=== PATIENT | male | born 1965 | race Caucasian/White ===

== ENCOUNTER → 2016-11-30 | Outpatient (CLI) | payer OTHER ==
--- NOTE | 2016-11-30 15:45 | XR ---
EXAMINATION TYPE: XR KUB DATE OF EXAM: 11/30/2016 COMPARISON: 04/11/2016 INDICATION: Renal calculus TECHNIQUE: Single view abdomen supine view FINDINGS: There is a normal bowel gas pattern. Colonic bowel gas is present. Single loop of small bowel is in t he left midabdomen. Psoas margins are normal. No organomegaly is present. There is a 0.5 cm calcification within the inferior pole right kidney. Couple smaller calcifications are closer to the renal pelvis. Appears stable from 04/11/2016 Fixation screws are within the L4-L5 and S1 pedicles. IMPRESSION: 1. Stable calcifications at the inferior pole right kidney. The largest measures 0.5 cm transverse di mension.
== END | disposition home or self-care (01) ==
LOC: RADXRMAIN 15:24
PROVIDERS: ATTEND Family Medicine
DX: N28.89 Other specified disorders of kidney and ureter (principal)
CPT/HCPCS: 74000

== ENCOUNTER 2019-05-16 08:32 | Emergency (ER) | payer BC, OTHER ==
[2019-05-16 08:38] VITALS: TEMP 98.2
[2019-05-16] MEDS ORDERED: SODIUM CHLORIDE 0.9% 1,000 ML IV STA ×2 (08:53)
[2019-05-16] MEDS ORDERED: KETOROLAC 30 MG/ML 1 ML VIAL IVP STA (08:53)
[2019-05-16] MEDS ORDERED: HYDROmorphone 1 MG/ML 1 ML SYRINGE IVP STA ×4 (08:53→13:35)
[2019-05-16] MEDS ORDERED: ONDANSETRON 4 MG/2 ML VIAL IVP STA (08:53)
--- NOTE | 2019-05-16 09:00 | ED ---
Abdominal Pain HPI - General Source: patient, RN notes reviewed, old records reviewed Mode of arrival: wheelchair Limitations: no limitations <Vicki Carrion - Last Filed: 05/17/19 06:33> <Pam Dugan - Last Filed: 05/17/19 22:22> - General Chief Complaint: Abdominal Pain Stated Complaint: Kidney stone Time Seen by Provider: 05/16/19 08:41 - History of Present Illness Initial Comments: Patient is a 53-year-old male, with history of kidney stones. He presents today complaints of worsening left lower quadrant pain. Patient reports he was seen at [facility] on May 14 for this similar pain. He reports that he had a 2 cm stone in his left ureter. Patient states that his urologist is Dr. Rabago. He does have an upcoming appointment on May 19. Patient states that he is taking [place] at home without any relief. Patient states that he did not have urinary tract infection that time. Patient reports no chest pain shortness breath. Patient has had his last dose of pain meds 4 hours ago. Patient reports that he's had no vomiting. He has had have ureter stents in the past to have kidney stones removed. (Vicki Carrion) - Related Data Home Medications Medication Instructions Recorded Confirmed Diazepam [Valium] 5 mg PO BID 04/13/16 04/18/16 Sulfamethoxazole/Trimethoprim 1 tab PO Q12H 04/13/16 04/18/16 [Bactrim DS 800-160 mg] oxyCODONE HCL [oxyCODONE HCL (IR)] 10 mg PO Q4-6H PRN 04/18/16 04/18/16 Previous Rx's Medication Instructions Recorded HYDROcodone/APAP 10-325MG [[place] 1 tab PO Q4H PRN #18 tab 05/16/19 10-325] Allergies Allergy/AdvReac Type Severity Reaction Status Date / Time adhesive tape Allergy Rash/Hives Verified 05/16/19 08:39 Review of Systems ROS Other: All systems not noted in ROS Statement are negative. <Vicki Carrion - Last Filed: 05/17/19 06:33> ROS Other: All systems not noted in ROS Statement are negative. <Pam Dugan - Last Filed: 05/17/19 22:22> ROS Statement: Those systems with pertinent positive or pertinent negative responses have been documented in the HPI. Past Medical History Past Medical History: Renal Disease Additional Past Medical History / Comment(s): kidney stones, herniated/slipped disk,SPONDYLOLISTHESIS, DDD, low back pain. started 04/12/16 on antibiotic for UTI-2 PILLS LEFT TO TAKE. History of Any Multi-Drug Resistant Organisms: None Reported Past Surgical History: No Surgical Hx Reported Additional Past Surgical History / Comment(s): cystoscopy R perc nephrostolithotomy. 04-18-16 LAMINECTOMY,DECOMPRESSION, FUSION Past Anesthesia/Blood Transfusion Reactions: No Reported Reaction Additional Past Anesthesia/Blood Transfusion Reaction / Comment(s): clausterphobia Past Psychological History: No Psychological Hx Reported Smoking Status: Current every day smoker - Past Family History Father Family Medical History: No Reported History Additional Family Medical History / Comment(s): Father is alive and healthy. Mother Family Medical History: No Reported History <Vicki Carrion - Last Filed: 05/17/19 06:33> General Exam Limitations: no limitations General appearance: alert, in no apparent distress Head exam: Present: atraumatic, normocephalic, normal inspection Eye exam: Present: normal appearance, PERRL, EOMI. Absent: scleral icterus, conjunctival injection, periorbital swelling ENT exam: Present: normal exam, mucous membranes moist Neck exam: Present: normal inspection. Absent: tenderness, meningismus, lymphadenopathy Respiratory exam: Present: normal lung sounds bilaterally. Absent: respiratory distress, wheezes, rales, rhonchi, stridor Cardiovascular Exam: Present: regular rate, normal rhythm, normal heart sounds. Absent: systolic murmur, diastolic murmur, rubs, gallop, clicks GI/Abdominal exam: Present: soft, tenderness (LLQ tenderness), normal bowel sounds. Absent: distended, guarding, rebound, rigid Extremities exam: Present: normal inspection, full ROM, normal capillary refill. Absent: tenderness, pedal edema, joint swelling, calf tenderness Back exam: Present: normal inspection, CVA tenderness (L) Neurological exam: Present: alert, oriented X3, CN II-XII intact Psychiatric exam: Present: normal affect, normal mood Skin exam: Present: warm, dry, intact, normal color. Absent: rash <Vicki Carrion - Last Filed: 05/17/19 06:33> - General Exam Comments Initial Comments: 53 year old male, no distress. (Vicki Carrion) Course Vital Signs 05/16/19 05/16/19 05/16/19 08:36 08:38 09:38 Temperature 98.2 F Pulse Rate 69 62 Respiratory 16 20 20 Rate Blood Pressure 139/89 125/81 O2 Sat by Pulse 100 100 Oximetry 05/16/19 05/16/19 05/16/19 10:38 11:00 12:00 Temperature Pulse Rate 64 63 63 Respiratory 20 20 20 Rate Blood Pressure 126/84 126/85 118/80 O2 Sat by Pulse 100 100 100 Oximetry 05/16/19 05/16/19 13:00 13:43 Temperature Pulse Rate 63 Respiratory 20 20 Rate Blood Pressure 120/82 O2 Sat by Pulse 100 Oximetry Medical Decision Making - Lab Data Result diagrams: 05/16/19 08:55 05/16/19 08:55 - Radiology Data Radiology results: report reviewed <Vicki Carrion - Last Filed: 05/17/19 06:33> - Lab Data Result diagrams: 05/16/19 08:55 05/16/19 08:55 <Pam Dugan - Last Filed: 05/17/19 22:22> - Medical Decision Making Patient's 53-year-old male presents emergency room safe left-sided abdominal pain and flank pain. Diagnosis of kidney stones 2 days ago. He's been taking [place] at home without relief. Patient is given IV fluids and 15. Patient's labs reviewed and was unremarkable. Urinalysis showed hematuria. Patient Can was reviewed from 2 days ago. There is no sign of obstructing stones that time. KUB showed retained renal stones. With persistent pain is discussed the next option of the repeat imaging. Repeat computed tomography scan computed tomography scan was ordered. There is evidence of a 2 cm ovoid stone in the left renal pelvis. Patient's case was discussed with Dr. Dugan. Discussed case with Dr. Rabago. Patient was given option to be admitted for IV pain management or to increase his oral pain meds at home and follow-up with Dr. Rabago on Saturday. Patient agrees to go home. Discussed strict return parameters. (Vicki Carrion) I was available for consultation in the emergency department. The history and physical exam were done by the midlevel provider. I was consulted for this patients care. I reviewed the case with the midlevel provider and based on their presentation of the patient, I agree with the assessment, medical decision making and plan of care as documented. I discussed the case with Dr. Duarte who stated that the patient should go home if pain is controlled and follow up in his office on Saturday. Call to make appointment. I discussed this with the patient who feels much improved with pain medication. He is agreeable to discharge. Return parameters discussed. Chart was dictated using [employer] dictation software. Attempts were made to correct any dictation errors however some typographical errors may persist. (Pam Dugan) - Lab Data Lab Results 05/16/19 05/16/19 05/16/19 Range/Units 08:55 08:55 08:55 WBC 7.9 (3.8-10.6) k/uL RBC 5.36 (4.30-5.90) m/uL Hgb 16.0 (13.0-17.5) gm/dL Hct 48.6 (39.0-53.0) % MCV 90.8 (80.0-100.0) fL MCH 29.9 (25.0-35.0) pg MCHC 33.0 (31.0-37.0) g/dL RDW 12.2 (11.5-15.5) % Plt Count 210 (150-450) k/uL Neutrophils % 73 % Lymphocytes % 17 % Monocytes % 6 % Eosinophils % 2 % Basophils % 1 % Neutrophils # 5.7 (1.3-7.7) k/uL Lymphocytes # 1.3 (1.0-4.8) k/uL Monocytes # 0.5 (0-1.0) k/uL Eosinophils # 0.2 (0-0.7) k/uL Basophils # 0.1 (0-0.2) k/uL PT 9.8 (9.0-12.0) sec INR 0.9 (<1.2) APTT 25.9 (22.0-30.0) sec Sodium 141 (137-145) mmol/L Potassium 4.3 (3.5-5.1) mmol/L Chloride 110 H (98-107) mmol/L Carbon Dioxide 22 (22-30) mmol/L Anion Gap 9 mmol/L BUN 14 (9-20) mg/dL Creatinine 0.95 (0.66-1.25) mg/dL Est GFR (CKD-EPI)AfAm >90 (>60 ml/min/1.73 sqM) Est GFR (CKD-EPI)NonAf >90 (>60 ml/min/1.73 sqM) Glucose 102 H (74-99) mg/dL Calcium 11.3 H (8.4-10.2) mg/dL Total Bilirubin 0.6 (0.2-1.3) mg/dL AST 24 (17-59) U/L ALT 18 (4-49) U/L Alkaline Phosphatase 103 (38-126) U/L Total Protein 7.6 (6.3-8.2) g/dL Albumin 4.6 (3.5-5.0) g/dL Amylase 71 (30-110) U/L Lipase 72 (23-300) U/L Urine Color Urine Appearance (Clear) Urine pH (5.0-8.0) Ur Specific [place] (1.001-1.035) Urine Protein (Negative) Urine Glucose (UA) (Negative) Urine Ketones (Negative) Urine Blood (Negative) Urine Nitrite (Negative) Urine Bilirubin (Negative) Urine Urobilinogen (<2.0) mg/dL Ur Leukocyte Esterase (Negative) Urine RBC (0-5) /hpf Urine WBC (0-5) /hpf Calcium Oxalate Crystal (None) /hpf Urine Bacteria (None) /hpf Urine Mucus (None) /hpf Urine Sperm (None) /hpf 05/16/19 Range/Units 09:45 WBC (3.8-10.6) k/uL RBC (4.30-5.90) m/uL Hgb (13.0-17.5) gm/dL Hct (39.0-53.0) % MCV (80.0-100.0) fL MCH (25.0-35.0) pg MCHC (31.0-37.0) g/dL RDW (11.5-15.5) % Plt Count (150-450) k/uL Neutrophils % % Lymphocytes % % Monocytes % % Eosinophils % % Basophils % % Neutrophils # (1.3-7.7) k/uL Lymphocytes # (1.0-4.8) k/uL Monocytes # (0-1.0) k/uL Eosinophils # (0-0.7) k/uL Basophils # (0-0.2) k/uL PT (9.0-12.0) sec INR (<1.2) APTT (22.0-30.0) sec Sodium (137-145) mmol/L Potassium (3.5-5.1) mmol/L Chloride (98-107) mmol/L Carbon Dioxide (22-30) mmol/L Anion Gap mmol/L BUN (9-20) mg/dL Creatinine (0.66-1.25) mg/dL Est GFR (CKD-EPI)AfAm (>60 ml/min/1.73 sqM) Est GFR (CKD-EPI)NonAf (>60 ml/min/1.73 sqM) Glucose (74-99) mg/dL Calcium (8.4-10.2) mg/dL Total Bilirubin (0.2-1.3) mg/dL AST (17-59) U/L ALT (4-49) U/L Alkaline Phosphatase (38-126) U/L Total Protein (6.3-8.2) g/dL Albumin (3.5-5.0) g/dL Amylase (30-110) U/L Lipase (23-300) U/L Urine Color Yellow Urine Appearance Clear (Clear) Urine pH 7.0 (5.0-8.0) Ur Specific [place] 1.013 (1.001-1.035) Urine Protein 1+ H (Negative) Urine Glucose (UA) Negative (Negative) Urine Ketones Negative (Negative) Urine Blood Small H (Negative) Urine Nitrite Negative (Negative) Urine Bilirubin Negative (Negative) Urine Urobilinogen <2.0 (<2.0) mg/dL Ur Leukocyte Esterase Small H (Negative) Urine RBC 67 H (0-5) /hpf Urine WBC 11 H (0-5) /hpf Calcium Oxalate Crystal Occasional H (None) /hpf Urine Bacteria Occasional H (None) /hpf Urine Mucus Rare H (None) /hpf Urine Sperm Occasional H (None) /hpf - Radiology Data 2 cm ovoid calculus the left UPJ with moderate obstructive uropathy. Prominent fat strain. Renal sinus crit are present small amount of urine extravasation. Additional bilateral nonobstructing renal colliculi larger on the right measuring up to 1.17 m. Left sided colonic diverticulosis without acute div erticulitis. (Vicki Carrion) Disposition Is patient prescribed a controlled substance at d/c from ED?: Yes When asked, does pt state using other controlled substances?: Yes If prescribed controlled substance>3 days was MAPS reviewed?: Prescribed <3 Days If opioid is for acute pain is fill amount 7 days or less?: Yes If Rx opioid, was Start Talking consent form obtained?: Yes Time of Disposition: 13:16 <Vicki Carrion - Last Filed: 05/17/19 06:33> <Pam Dugan - Last Filed: 05/17/19 22:22> Clinical Impression: Kidney stone on left side Disposition: HOME SELF-CARE Condition: Good Instructions (If sedation given, give patient instructions): Kidney Stones (ED) Additional Instructions: Patient advised to follow-up with Dr. Rabago on Saturday. Return to the emergency department if any alarming signs or symptoms occur. Prescriptions: HYDROcodone/APAP 10-325MG [[place] 10-325] 1 tab PO Q4H PRN #18 tab PRN Reason: Pain Referrals: Jorge Trejo III, MD [Primary Care Provider] - 1-2 days
[2019-05-16 09:12] LABS: Basophils # (A) 0.1 k/uL (0-0.2); Basophils % (A) 1 %; Eosinophils # (A) 0.2 k/uL (0-0.7); Eosinophils % (A) 2 %; HCT 48.6 % (39.0-53.0); Lymphocytes # (A) 1.3 k/uL (1.0-4.8); Lymphocytes % (A) 17 %; MCH 29.9 pg (25.0-35.0); MCV 90.8 fL (80.0-100.0); Mean Platelet Volume 8.9; Monocytes # (A) 0.5 k/uL (0-1.0); Monocytes % (A) 6 %; Neutrophils # (A) 5.7 k/uL (1.3-7.7); Neutrophils % (A) 73 %; Platelet Count 210 k/uL (150-450); RBC 5.36 m/uL (4.30-5.90); RDW 12.2 % (11.5-15.5); WBC 7.9 k/uL (3.8-10.6)
[2019-05-16 09:21] LABS: INR 0.9 (<1.2); Partial Thromboplastin Time 25.9 sec (22.0-30.0); Prothrombin Time 9.8 sec (9.0-12.0)
[2019-05-16 09:23] VITALS: RESP 20
[2019-05-16 09:36] LABS: ALT 18 U/L (4-49); AST 24 U/L (17-59); African American GFR (CKD) >90 (>60 ml/min/1.73 sqM); Albumin 4.6 g/dL (3.5-5.0); Alkaline Phosphatase 103 U/L (38-126); Amylase 71 U/L (30-110); Anion Gap 9 mmol/L; Blood Urea Nitrogen 14 mg/dL (9-20); Calcium 11.3 mg/dL (8.4-10.2); Carbon Dioxide 22 mmol/L (22-30); Chloride 110 mmol/L (98-107); Glucose 102 mg/dL (74-99); Non-African American GFR(CKD) >90 (>60 ml/min/1.73 sqM); Potassium 4.3 mmol/L (3.5-5.1); Sodium 141 mmol/L (137-145); Total Bilirubin 0.6 mg/dL (0.2-1.3); Total Protein 7.6 g/dL (6.3-8.2)
--- NOTE | 2019-05-16 09:46 | XR ---
EXAMINATION TYPE: XR KUB DATE OF EXAM: 05/16/2019 CLINICAL DATA: 53 year old male with abdominal pain, [facility] COMPARISON: 11/30/16 FINDINGS: Lung bases are clear. No evidence for free intraperitoneal air. No dilated small bowel or differential air-fluid levels. Scattered air and stool seen throughout the colon extending distally into the rectum. Bilateral renal calculi. 8mm and 6mm renal calculi right kidney. Larger 2.2 cm calculus left kidney. Prosthetic calcifications are demonstrated. L4-S1 posterior fusion hardware. Overall nonobstructive bowel gas pattern. Scattered mild to moderate stool. IMPRESSION: 1. No evidence of bowel obstruction or free intraperitoneal air. 2. Mild to moderate stool. 3. Bilateral renal calculi measuring up to 8 mm on the right and 2.2 cm on the left.
[2019-05-16] MEDS ORDERED: SODIUM CHLORIDE 0.9% 1,000 ML IV ONE (10:34)
[2019-05-16 11:18] VITALS: PULSE 63
[2019-05-16 11:45] LABS: Appearance,Urine Clear (Clear); Bacteria,Urine Occasional /hpf; Bilirubin,Urine Negative (Negative); Blood,Urine Small (Negative); Calcium Oxalate Crystals,Urine Occasional /hpf; Color,Urine Yellow; Glucose,Urine (UA) Negative (Negative); Ketones,Urine Negative (Negative); Leukocyte Esterase,Urine Small (Negative); Mucus,Urine Rare /hpf; Nitrite,Urine Negative (Negative); Protein,Urine 1+ (Negative); RBC,Urine 67 /hpf (0-5); Specific Gravity,Urine 1.013 (1.001-1.035); Sperm,Urine Occasional /hpf; Urobilinogen,Urine <2.0 mg/dL (<2.0); WBC,Urine 11 /hpf (0-5)
--- NOTE | 2019-05-16 12:23 | CT ---
EXAMINATION TYPE: CT abdomen pelvis wo con DATE OF EXAM: 05/16/2019 COMPARISON: 10/31/2014 HISTORY: 53-year-old male Lt flank pain CT DLP: 660.8 mGycm. Automated exposure control for dose reduction was used. TECHNIQUE: Contiguous axial scanning of the abdomen and pelvis without IV contrast. Coronal and sagit jory reconstructions performed. FINDINGS: Heart normal size without pericardial effusion. Strandy dependent atelectasis at the lung bases witho ut pleural effusion. Noncontrast appearance of the liver, gallbladder, adrenal glands, spleen, and pancreas show no gross abnormality Right-sided nephrolithiasis. Approximately 5 calculi are present, 3 largest at the lower pole measuri ng up to 1.1 cm. A couple punctate 1 to 2 mm calculi within the left kidney. There is moderate left-sided pelvocaliect asis secondary to a 2.0 cm ovoid calculus at the UVJ. Mild fat stranding in the renal sinus. No dilated small bowel, free fluid, or free air. No mesenteric or retroperitoneal lymphadenopathy. Normal appendix. Mild to moderate stool. Left-sided colonic diverticulosis, greatest in the sigmoid colon. Bladder urine distended. Prostate gland mildly enlarged at 4.5 cm wide with prostatic calcifications. No abnormal fluid collection in the pelvis or pelvic lymphadenopathy. Bones: Mild degenerative changes at the hips and left SI joint. Postsurgical changes of L4-S1 posteri or fusion. Grade 1 anterolisthesis of L5-S1. IMPRESSION: 1. A 2.0 cm ovoid calculus at the left UPJ with moderate obstructive uropathy. 2. Prominent fat stranding in the left renal sinus could represent small amount of urine extravasati on related to the obstruction. 3. 3. Additional bilateral nonobstructive renal calculi, larger on the right measuring up to 1.1 cm. 4. Left-sided colonic diverticulosis without acute diverticulitis.
[2019-05-16 13:36] VITALS: BP 120/82
== END 2019-05-16 13:49 | disposition home or self-care (01) ==
LOC: EC 08:32
DX: N20.0 Calculus of kidney (principal); F17.200 Nicotine dependence, unspecified, uncomplicated; Z98.890 Other specified postprocedural states; Z96.0 Presence of urogenital implants; Z79.899 Other long term (current) drug therapy; Z91.048 Other nonmedicinal substance allergy status; Z53.8 Procedure and treatment not carried out for other reasons
CPT/HCPCS: 99285; 96374; 96375 ×2; 96376 ×2; 96361 ×5; 36415; 80053; 82150; 83690; 85025; 85610; 85730; 81001; 87086; 74018; 74176; J2405; J1885; J1170

== ENCOUNTER → 2019-05-19 | Outpatient (CLI) | payer BC ==
[2019-05-19 13:27] LABS: Appearance,Urine Cloudy (Clear); Bilirubin,Urine Negative (Negative); Blood,Urine Large (Negative); Color,Urine Yellow; Glucose,Urine (UA) Negative (Negative); Ketones,Urine Negative (Negative); Leukocyte Esterase,Urine Moderate (Negative); Mucus,Urine Rare /hpf; Nitrite,Urine Negative (Negative); Protein,Urine 1+ (Negative); RBC,Urine >182 /hpf (0-5); Specific Gravity,Urine 1.022 (1.001-1.035); Squamous Epithelial Cell,Urine <1 /hpf (0-4); Urobilinogen,Urine <2.0 mg/dL (<2.0); WBC,Urine 29 /hpf (0-5)
[2019-05-19 13:39] LABS: Basophils % (A) 1 %; Eosinophils # (A) 0.2 k/uL (0-0.7); Eosinophils % (A) 2 %; HCT 46.8 % (39.0-53.0); HGB 15.5 gm/dL (13.0-17.5); Lymphocytes # (A) 1.4 k/uL (1.0-4.8); Lymphocytes % (A) 17 %; MCH 30.7 pg (25.0-35.0); Mean Platelet Volume 8.9; Monocytes # (A) 0.6 k/uL (0-1.0); Monocytes % (A) 7 %; Neutrophils # (A) 5.9 k/uL (1.3-7.7); Neutrophils % (A) 72 %; Platelet Count 195 k/uL (150-450); RBC 5.04 m/uL (4.30-5.90); RDW 12.3 % (11.5-15.5); WBC 8.2 k/uL (3.8-10.6)
[2019-05-19 13:42] LABS: African American GFR (CKD) >90 (>60 ml/min/1.73 sqM); Anion Gap 7 mmol/L; Blood Urea Nitrogen 22 mg/dL (9-20); Calcium 10.8 mg/dL (8.4-10.2); Carbon Dioxide 26 mmol/L (22-30); Chloride 107 mmol/L (98-107); Glucose 88 mg/dL (74-99); Non-African American GFR(CKD) 79 (>60 ml/min/1.73 sqM); Potassium 4.6 mmol/L (3.5-5.1); Sodium 140 mmol/L (137-145)
== END | disposition home or self-care (01) ==
LOC: LABPAT 12:27
PROVIDERS: ATTEND Urology
DX: Z01.818 Encounter for other preprocedural examination (principal); Z01.812 Encounter for preprocedural laboratory examination; N20.0 Calculus of kidney; R53.83 Other fatigue
CPT/HCPCS: 36415; 80048; 81001; 85025; 87086; 93005

== ENCOUNTER 2019-05-26 11:08 | Observation (INO) | payer BC ==
[2019-05-21 12:53] VITALS: BMI 27.1
--- NOTE | 2019-05-25 20:16 | P.GSHP ---
History of Present Illness H&P Date: 05/25/19 54 yo male with a 2 cm left renal pelvic stone with pain and obstruction who comes for a pcnl The risks complication and alternatives have been discussed - Constitutional Constitutional: Denies chills, Denies fever - EENT Eyes: denies blurred vision, denies pain Ears, nose, mouth and throat: Denies headache, Denies sore throat - Cardiovascular Cardiovascular: Denies chest pain, Denies shortness of breath - Respiratory Respiratory: Denies cough, Denies 7 - Gastrointestinal Gastrointestinal: Denies abdominal pain, Denies diarrhea, Denies nausea, Denies vomiting - Genitourinary (Female) Genitourinary: Denies dysuria, Denies hematuria - Genitourinary (Male) Genitourinary: Denies dysuria, Denies hematuria - Musculoskeletal Musculoskeletal: Denies myalgias - Integumentary Integumentary: Denies pruritus, Denies rash - Neurological Neurological: Denies numbness, Denies weakness - Psychiatric Psychiatric: Denies anxiety, Denies depression - Endocrine Endocrine: Denies fatigue, Denies weight change Past Medical History Past Medical History: Renal Disease Additional Past Medical History / Comment(s): kidney stones, herniated/slipped disk,SPONDYLOLISTHESIS, DDD, low back pain. History of Any Multi-Drug Resistant Organisms: None Reported Past Surgical History: Back Surgery Additional Past Surgical History / Comment(s): cystoscopy R perc nephrostolithotomy. 04-18-16 LAMINECTOMY,DECOMPRESSION, FUSION Past Anesthesia/Blood Transfusion Reactions: No Reported Reaction Additional Past Anesthesia/Blood Transfusion Reaction / Comment(s): claustrophobia Smoking Status: Current every day smoker - Past Family History Father Family Medical History: No Reported History Additional Family Medical History / Comment(s): Father is alive and healthy. Mother Family Medical History: No Reported History Medications and Allergies Home Medications Medication Instructions Recorded Confirmed Type HYDROcodone/APAP 10-325MG [[place] 1 tab PO Q4H PRN #18 tab 05/16/19 05/21/19 Rx 10-325] Allergies Allergy/AdvReac Type Severity Reaction Status Date / Time adhesive tape Allergy Rash/Hives Verified 05/21/19 12:40 Surgical - Exam - General well developed, well nourished, no distress - Eyes PERRL - ENT no hearing loss - Neck no masses, trachea midline - Respiratory normal expansion, normal respiratory effort - Cardiovascular Rhythm: regular - Abdomen Abdomen: soft, non tender - Integumentary no rash - Neurologic normal sensation - Musculoskeletal normal gait, normal posture - Psychiatric oriented to time, oriented to person, speech is normal, memory intact Results - Imaging CT scan - abdomen: report reviewed, image reviewed CT scan - pelvis: report reviewed, image reviewed Assessment and Plan Assessment: Impression: Left renal pelvic stone Plan: PCNL left
[~2019-05-26 11:08] MED LIST: DEXAMETHASONE SOD PHOSPHATE 10 MG/ML 1 ML VIAL IV ONE; LIDOCAINE 1% 20 ML VIAL (10MG/ML) FOR IV START INTRADERMA PRN; MIDAZOLAM 2 MG/2 ML VIAL IV PRN; ONDANSETRON 4 MG/2 ML VIAL IVP ONE; SCOPOLAMINE 1.5MG/72HR PATCH TRANSDERM ONE
--- NOTE | 2019-05-26 11:35 | XR ---
KUB HISTORY: Preop, nephrolithiasis Frontal KUB correlated to prior CT and plain film 05/16/2019 The calcifications seen overlying the left and right kidneys are again noted. Postop changes are note d to the lumbosacral spine. Calcifications are noted within the pelvis which are within the prostate. Bone mineralization is normal. IMPRESSION: Bilateral nephrolithiasis.
[2019-05-26] MEDS: LACTATED RINGERS 1,000 ML IV SCH (11:50)
[2019-05-26] MEDS ORDERED: fentaNYL (PF) 50 MCG/ML 2 ML AMP IVP ONE (12:08)
[2019-05-26] MEDS ORDERED: GLYCOPYRROLATE 0.2 MG/ML 2 ML VIAL ONE (12:38)
[2019-05-26] MEDS ORDERED: MIDAZOLAM 2 MG/2 ML VIAL ONE (12:38)
[2019-05-26] MEDS ORDERED: ROCURONIUM BROMIDE 10 MG/ML 10 ML VIAL IV ONE (12:38)
[2019-05-26] MEDS ORDERED: LIDOCAINE 1% INJ 10MG/ML (20 ML MDV) ONE (12:38)
[2019-05-26] MEDS ORDERED: NEOSTIGMINE 1 MG/ML 10 ML VIAL ONE (12:38)
[2019-05-26] MEDS ORDERED: KETOROLAC 30 MG/ML 1 ML VIAL ONE (12:38)
[2019-05-26] MEDS ORDERED: PROPOFOL 10 MG/ML 20 ML VIAL IV ONE (12:38)
[2019-05-26] MEDS ORDERED: fentaNYL (PF) 50 MCG/ML 2 ML AMP ONE (12:38)
[2019-05-26] MEDS ORDERED: ceFAZolin 1,000 MG VIAL IVPB ONE ×2 (12:44→12:57)
[2019-05-26] MEDS ORDERED: IOHEXOL 350 MG/ML (PER ML) 100ML BTL MISCELLANE ONE ×2 (12:59)
[2019-05-26] MEDS ORDERED: IOPAMIDOL-300 50ML BTL MISCELLANE ONE (12:59)
[2019-05-26] MEDS ORDERED: LACTATED RINGERS 1,000 ML IV ONE (13:53)
[2019-05-26] MEDS ORDERED: NALOXONE 0.4 MG/ML 1 ML VIAL IV PRN (14:28)
[2019-05-26] MEDS ORDERED: ACETAMINOPHEN TAB 325 MG TAB PO PRN (14:29)
[2019-05-26] MEDS ORDERED: ONDANSETRON 4 MG/2 ML VIAL IVP PRN (14:29)
[2019-05-26] MEDS ORDERED: MAG HYDROX/AL HYDROX/SIMETH 30 ML CUP PO PRN (14:29)
--- NOTE | 2019-05-26 14:36 | P.OP ---
Date of Procedure: 05/26/19 Preoperative Diagnosis: Left renal calculus large Postoperative Diagnosis: Same Procedure(s) Performed: Cystoscopy, placement of 5-[place] occluding balloon catheter left, percutaneous nephrostomy (Dr. Mcclure) percutaneous nephrostolithotomy with laser lithotripsy, placement of 10-[place] J nephrostomy Anesthesia: CHANO Surgeon: Henok Duarte Estimated Blood Loss (ml): 50 Pathology: other (Stone) Condition: stable Disposition: PACU Indications for Procedure: The patient is a 54-year-old gentleman with known history of kidney stones who has a 2 cm left renal pelvic stone with obstruction and pain whocomes for percutaneous nephrostolithotomy Description of Procedure: The patient is brought to the operating suite and on the transport gurney is given a successful general endotracheal anesthesia. He's placed in a frog position with a sterile prep and drape. Cystoscopy a Foroblique lens and 22- [place]i sheath identifies a normal urethra. The prostate is not obstructing. The left ureteral orifice is identified and a 5-[place]i occluding balloon meredith ters passed up into the UPJ. It is secured to a 16-[place]i Sampson. The patient is placed in a prone position with care to airways and extremities. He is prepped and draped sterilely. Dr. Mcclure of radiology enters the procedure. He performed percutaneous access to the left lower pole calyx. The stone which was impacted in the renal pelvis was floated into the dilated upper pole calyx. I then dilate the tract to 30-[place]i. Introduced the rigid scope into the collecting system and remove any clot. I cannot access the upper pole calyx with the rigid scope. I passed the flexible nephroscope up into the kidney upper pole calyx. The stone is seen. With a 375 laser probe and up to 10 W of energy the stone was broken into smaller pieces. With a 1.9-[place]i stone basket I basket the largest pieces. The smaller pieces flow back into the renal pelvis which are removed with the rigid scope and grasping forceps. At the end of the procedure I looked throughout the collecting system including the UPJ and see no remaining stone. A 10-[place] J nephrostomy tube was placed and coils in the renal pelvis. It is secured to the skin with 2-0 silk. The occluding balloon catheters deflated and removed. The patient is awakened and returned recovery room good condition. Blood loss is at most 50 mL. He'll be placed in the hospital postoperatively
--- NOTE | 2019-05-26 14:45 | FL ---
EXAMINATION TYPE: FL Perc Nephrostomy New Access DATE OF EXAM: 05/26/2019 COMPARISON: CT 05/16/2019 HISTORY: Left renal calculus. PROCEDURE: Maximal barrier technique was utilized. The skin overlying the left kidney was localized using fluor oscopy and the overlying skin prepped and draped. Skin tamra was made with a scalpel. Access was ga ined under fluoroscopy, following placement of a ureteral occlusion balloon by the referring clinicia n and instillation of air in the renal collecting system with a 21-gauge needle to the kidney. A alireza table posterior calyx was chosen. A 0.018 inch wire was advanced. The access site was dilated and the ureters selected using an angled Glidewire and angled 5 Persian catheter and subsequently a sheath was advanced into the renal pelvis following dilation with balloon along the tract. Second safety wi re was introduced prior to dilation. The patient underwent nephrolithotomy by the referring clinician . The patient remained in stable condition without complication. The patient was discharged to [facility]. IMPRESSION: 13 minutes 21 seconds fluoroscopy time supplied to the referring clinician, intraoperativ e image documents the procedure STATUS POST NEPHROSTOMY PLACEMENT FOR NEPHROLITHOTOMY WITH FLUOROSCOPIC GUIDANCE. THIS PROCEDURE PER FORMED BY THE UNDERSIGNED.
[2019-05-26] MEDS: HYDROmorphone 0.5 MG/0.5 ML SYRINGE IVP PRN ×2 (15:05→15:10)
[2019-05-26] MEDS: MIDAZOLAM 2 MG/2 ML VIAL IVP ONE ×3 (15:22→15:36)
[2019-05-26] MEDS ORDERED: MEPERIDINE 50 MG/ML SYRINGE IVP ONE (15:50)
[2019-05-26] MEDS: HYDROmorphone PCA 10 MG/50 ML BAG IV PRN (18:14)
[2019-05-26] MEDS: KETOROLAC 30 MG/ML 1 ML VIAL IVP SCH (20:19)
[2019-05-26] MEDS: DEXTROSE 5%-0.45% NACL 1,000 ML IV SCH (20:19)
[2019-05-27] MEDS: KETOROLAC 30 MG/ML 1 ML VIAL IVP SCH ×3 (01:16→11:47)
[2019-05-27 01:45] VITALS: RESP 17
[2019-05-27] MEDS: DEXTROSE 5%-0.45% NACL 1,000 ML IV SCH (01:55)
[2019-05-27] MEDS: LACTATED RINGERS 1,000 ML IV SCH (06:01)
[2019-05-27] MEDS: HYDROmorphone PCA 10 MG/50 ML BAG IV PRN (06:37)
[2019-05-27 08:04] VITALS: BP 128/93; PULSE 68; TEMP 97.9
--- NOTE | 2019-05-27 11:01 | P.DS ---
Providers Date of admission: 05/26/19 23:35 Attending physician: Henok Duarte Primary care physician: Jorge [facility] Course: The patient with a history of kidney stones was admitted yesterday 05/25/2019 for a left percutaneous nephrostolithotomy. He underwent this without difficulty. Postoperatively he did well. His vital signs are stable. The catheters been removed and he is voiding without problems. The urine in the nephrostomy tube is clearing. His abdomen is soft. A be discharged home today. He will follow- up in the office Saturday for nephrostomy tube removal. His serum calcium and PTH will be obtained as apparently he is going to see a surgeon for parathyroid disease but has not had any of these bloods drawn. His condition is good. His activities Limited. The patient understands these instructions. He'll follow- up in the office on Saturday. Patient Condition at Discharge: Good Plan - Discharge Summary Discharge Rx Participant: Yes New Discharge Prescriptions: No Action HYDROcodone/APAP 10-325MG [[place] 10-325] 1 tab PO Q4H PRN #18 tab PRN Reason: Pain Discharge Medication List HYDROcodone/APAP 10-325MG [[place] 10-325] 1 tab PO Q4H PRN #18 tab 05/16/19 [Rx] Follow up Appointment(s)/Referral(s): Henok Duarte MD [STAFF PHYSICIAN] - 05/29/19 Activity/Diet/Wound Care/Special Instructions: home with nephrostomy tube Discharge Disposition: HOME SELF-CARE
== END 2019-05-27 12:41 | disposition home or self-care (01) ==
LOC: OR 11:08 → 4SSUR 15:01 → OR 23:39
PROVIDERS: ADMIT Urology; ATTEND Urology
DX: N20.0 Calculus of kidney (principal); E21.3 Hyperparathyroidism, unspecified; F40.240 Claustrophobia; F17.210 Nicotine dependence, cigarettes, uncomplicated; Z87.448 Personal history of other diseases of urinary system; Z87.39 Personal history of other diseases of the musculoskeletal system and connective tissue; Z98.1 Arthrodesis status; Z98.890 Other specified postprocedural states; Z91.09 Other allergy status, other than to drugs and biological substances; Z88.8 Allergy status to other drugs, medicaments and biological substances; Z97.2 Presence of dental prosthetic device (complete) (partial)
CPT/HCPCS: 94760; 94762; 86900; 86901; 82310; 86850; 83970; 82365; 50432; 74018; 50080; G0378 ×2; C1769 ×5; C2628; C1894; J2250; J1100; J2710; J2175; J2405; J0690; J2001; J3010; J1885 ×2; J2704; J1170 ×3; Q9967

== ENCOUNTER → 2019-07-03 | Outpatient (CLI) | payer BC | END | disposition home or self-care (01) | LOC: LABWHC1 09:18 | PROVIDERS: ATTEND Urology | DX: N20.0 Calculus of kidney (principal) | CPT/HCPCS: 36415; 82310; 83970 ==

== ENCOUNTER → 2019-07-08 | Outpatient (CLI) | payer BC ==
[2019-07-08 09:06] LABS: Basophils # (A) 0.1 k/uL (0-0.2); Basophils % (A) 1 %; Eosinophils # (A) 0.2 k/uL (0-0.7); Eosinophils % (A) 2 %; HCT 46.7 % (39.0-53.0); HGB 14.7 gm/dL (13.0-17.5); Lymphocytes % (A) 12 %; MCH 29.5 pg (25.0-35.0); MCHC 31.5 g/dL (31.0-37.0); MCV 93.4 fL (80.0-100.0); Mean Platelet Volume 8.9; Monocytes # (A) 0.5 k/uL (0-1.0); Monocytes % (A) 5 %; Neutrophils # (A) 6.4 k/uL (1.3-7.7); Neutrophils % (A) 78 %; Platelet Count 151 k/uL (150-450); RDW 12.7 % (11.5-15.5); WBC 8.3 k/uL (3.8-10.6)
[2019-07-08 10:17] LABS: Appearance,Urine Clear (Clear); Bacteria,Urine Rare /hpf; Bilirubin,Urine Negative (Negative); Blood,Urine Negative (Negative); Color,Urine Yellow; Glucose,Urine (UA) Negative (Negative); Hyaline Casts,Urine 1 /lpf (0-2); Ketones,Urine Negative (Negative); Leukocyte Esterase,Urine Moderate (Negative); Mucus,Urine Rare /hpf; Nitrite,Urine Negative (Negative); PH, Urine 6.5 (5.0-8.0); Protein,Urine Trace (Negative); RBC,Urine 3 /hpf (0-5); Specific Gravity,Urine 1.019 (1.001-1.035); Squamous Epithelial Cell,Urine <1 /hpf (0-4); Urobilinogen,Urine <2.0 mg/dL (<2.0); WBC,Urine 9 /hpf (0-5)
[2019-07-08 16:40] LABS: African American GFR (CKD) 97.8 (60.0-200.0); Anion Gap 4.7 mmol/L (4.00-12.00); Calcium 10.1 mg/dL (8.7-10.3); Carbon Dioxide 28.3 mmol/L (21.6-31.8); Non-African American GFR(CKD) 84.4 (60.0-200.0); Potassium 4.6 mmol/L (3.5-5.5)
== END | disposition home or self-care (01) ==
LOC: LABWHC1 08:38
PROVIDERS: ATTEND Urology
DX: N20.0 Calculus of kidney (principal)
CPT/HCPCS: 36415; 80048; 81001; 85025

== ENCOUNTER → 2019-07-17 | Outpatient (CLI) | payer BC ==
--- NOTE | 2019-07-17 08:54 | XR ---
EXAMINATION TYPE: XR abdomen 1V DATE OF EXAM: 07/17/2019 8:48 AM CLINICAL HISTORY: Status post lithotripsy TECHNIQUE: Single supine KUB image of the abdomen is obtained. COMPARISON: 05/26/2019. FINDINGS: The 2.1 cm left-sided calculus is no longer visualized status post lithotripsy. Dystrophic calcificat ions near the pubic symphysis may be within the prostate gland or urinary bladder. Multiple right-nelli ed renal calculi are similar in size, 3 in number measuring up to 7 mm. Punctate density also overlie s the superior pole of the left kidney. Postsurgical change of L4-S1. No dilated bowel. Osseous struc tures appear intact. IMPRESSION: Resolution of the 2.1 cm left-sided renal calculus status post lithotripsy. Bilateral sera al calculi remain as well as dystrophic calcifications in the low pelvis that may be within the urina ry bladder or prostate gland is stable from the prior of 05/26/2019.
== END | disposition home or self-care (01) ==
LOC: RADXRMAIN 08:34
PROVIDERS: ATTEND Urology
DX: N20.0 Calculus of kidney (principal); M61.48 Other calcification of muscle, other site
CPT/HCPCS: 74018

== ENCOUNTER → 2020-01-05 | Outpatient (CLI) | payer BC ==
[2020-01-05 19:04] LABS: African American GFR (CKD) 65.1 (60.0-200.0); Calcium 9.7 mg/dL (8.7-10.3); Carbon Dioxide 22.7 mmol/L (21.6-31.8); Magnesium 1.8 mg/dL (1.5-2.4); Non-African American GFR(CKD) 56.2 (60.0-200.0); Phosphorus 3.3 mg/dL (2.4-5.1); Potassium 3.9 mmol/L (3.5-5.5); Uric Acid 6.1 mg/dL (3.7-8.7)
== END | disposition home or self-care (01) ==
LOC: LABWHC1 10:44
PROVIDERS: ATTEND Urology
DX: N20.0 Calculus of kidney (principal)
CPT/HCPCS: 36415; 82310; 82374; 82435; 82565; 83735; 84100; 84132; 84295; 84550

== ENCOUNTER → 2020-01-13 | Outpatient (CLI) | payer BC | END | disposition home or self-care (01) | LOC: LABWHC1 10:49 | PROVIDERS: ATTEND Family Medicine | DX: E83.52 Hypercalcemia (principal) | CPT/HCPCS: 36415; 83970 ==

== ENCOUNTER 2020-02-22 11:52 | Observation (INO) | payer BC ==
[2020-02-22] MEDS ORDERED: KETOROLAC 15 MG/ML 1 ML VIAL IVP STA (12:40)
[2020-02-22] MEDS ORDERED: SODIUM CHLORIDE 0.9% 1,000 ML IV STA (12:40)
[2020-02-22 13:32] LABS: Basophils % (A) 0 %; Eosinophils # (A) 0.1 k/uL (0-0.7); Eosinophils % (A) 1 %; HGB 13.2 gm/dL (13.0-17.5); Lymphocytes # (A) 0.8 k/uL (1.0-4.8); Lymphocytes % (A) 6 %; MCH 28.9 pg (25.0-35.0); MCHC 32.2 g/dL (31.0-37.0); Mean Platelet Volume 8.5; Monocytes # (A) 0.9 k/uL (0-1.0); Monocytes % (A) 7 %; Neutrophils # (A) 11.2 k/uL (1.3-7.7); Neutrophils % (A) 85 %; Platelet Count 188 k/uL (150-450); RBC 4.56 m/uL (4.30-5.90); RDW 13.5 % (11.5-15.5); WBC 13.1 k/uL (3.8-10.6)
--- NOTE | 2020-02-22 13:33 | XR ---
EXAMINATION TYPE: XR elbow complete RT DATE OF EXAM: 02/22/2020 COMPARISON: None HISTORY: 54-year-old male with pain TECHNIQUE: 3 views FINDINGS: There seems to be some mild generalized soft tissue swelling with reticulation within the subcutaneou s fat. No elbow joint effusion. No acute fracture, subluxation, or effusion. IMPRESSION: Some generalized soft tissue swelling. No acute osseous abnormality seen.
--- NOTE | 2020-02-22 13:40 | ED ---
General Adult HPI - General Chief complaint: Extremity Injury, Upper Stated complaint: R Arm Pain Time Seen by Provider: 02/22/20 12:23 Source: patient, RN notes reviewed Mode of arrival: ambulatory - History of Present Illness Initial comments: 54-year-old male presents to the emergency room for a chief complaint of right arm pain. Patient reports it has been ongoing for about a week. Patient states it is red and swollen. He denies fevers or chills. He states he cannot extend his elbow all the way. States it hurts to flex his elbow past 90. Patient denies any history of IV drug abuse.Patient has no other complaints at this time including shortness of breath, chest pain, abdominal pain, nausea or vomiting, headache, or visual changes. - Related Data Previous Rx's Medication Instructions Recorded HYDROcodone/APAP 10-325MG [[place] 1 tab PO Q4H PRN #18 tab 05/16/19 10-325] Allergies Allergy/AdvReac Type Severity Reaction Status Date / Time No Known Allergies Allergy Verified 02/22/20 12:15 Review of Systems ROS Statement: Those systems with pertinent positive or pertinent negative responses have been documented in the HPI. ROS Other: All systems not noted in ROS Statement are negative. Past Medical History Past Medical History: Renal Disease Additional Past Medical History / Comment(s): kidney stones, herniated/slipped disk,SPONDYLOLISTHESIS, DDD, low back pain. started 04/12/16 on antibiotic for UTI-2 PILLS LEFT TO TAKE. History of Any Multi-Drug Resistant Organisms: None Reported Past Surgical History: No Surgical Hx Reported Additional Past Surgical History / Comment(s): Litotripsy, Kidney stone removal. Past Anesthesia/Blood Transfusion Reactions: No Reported Reaction Additional Past Anesthesia/Blood Transfusion Reaction / Comment(s): clausterphobia Past Psychological History: No Psychological Hx Reported Smoking Status: Current every day smoker Past Alcohol Use History: None Reported Past Drug Use History: Marijuana - Past Family History Mother Family Medical History: Cancer Additional Family Medical History / Comment(s): LUNG CANCER- SMOKER General Exam General appearance: alert, in no apparent distress Head exam: Present: atraumatic, normocephalic, normal inspection Eye exam: Present: normal appearance, PERRL, EOMI. Absent: scleral icterus, conjunctival injection, periorbital swelling ENT exam: Present: normal exam, mucous membranes moist Neck exam: Present: normal inspection, full ROM. Absent: tenderness, meningismus, lymphadenopathy Respiratory exam: Present: normal lung sounds bilaterally. Absent: respiratory distress, wheezes, rales, rhonchi, stridor Cardiovascular Exam: Present: regular rate, normal rhythm, normal heart sounds. Absent: systolic murmur, diastolic murmur, rubs, gallop, clicks GI/Abdominal exam: Present: soft, normal bowel sounds. Absent: distended, ten derness, guarding, rebound, rigid Extremities exam: Present: tenderness (Tenderness of the generalized right elbow.), normal capillary refill (Capillary refill less than 2 seconds, radial pulse 2+ in the right upper extremity.), joint swelling (Patient has edema and erythema extend from the elbow up to the distal forearm.), other (Sensation intact right upper extremity.). Absent: full ROM (Patient has near complete extension however is unable to fully extend arm. Able to flex elbow to 90.), pedal edema, calf tenderness Course Vital Signs 02/22/20 12:12 Temperature 98.4 F Pulse Rate 93 Respiratory 18 Rate Blood Pressure 100/63 O2 Sat by Pulse 100 Oximetry Medical Decision Making - Medical Decision Making Patient has erythema from the elbow to the wrist. White count of 13.1 with a left shift. CMP is unremarkable. CRP is 193. X-ray of the elbow shows some generalized soft tissue swelling without acute fracture or dislocation. Patient will be admitted for cellulitis and IV antibiotics. - Lab Data Result diagrams: 02/22/20 12:40 02/22/20 12:40 Lab Results 02/22/20 02/22/20 02/22/20 Range/Units 12:40 12:40 12:40 WBC 13.1 H (3.8-10.6) k/uL RBC 4.56 (4.30-5.90) m/uL Hgb 13.2 (13.0-17.5) gm/dL Hct 41.0 (39.0-53.0) % MCV 90.0 (80.0-100.0) fL MCH 28.9 (25.0-35.0) pg MCHC 32.2 (31.0-37.0) g/dL RDW 13.5 (11.5-15.5) % Plt Count 188 (150-450) k/uL Neutrophils % 85 % Lymphocytes % 6 % Monocytes % 7 % Eosinophils % 1 % Basophils % 0 % Neutrophils # 11.2 H (1.3-7.7) k/uL Lymphocytes # 0.8 L (1.0-4.8) k/uL Monocytes # 0.9 (0-1.0) k/uL Eosinophils # 0.1 (0-0.7) k/uL Basophils # 0.0 (0-0.2) k/uL Sodium 135 L (137-145) mmol/L Potassium 4.4 (3.5-5.1) mmol/L Chloride 106 (98-107) mmol/L Carbon Dioxide 23 (22-30) mmol/L Anion Gap 6 mmol/L BUN 15 (9-20) mg/dL Creatinine 0.91 (0.66-1.25) mg/dL Est GFR (CKD-EPI)AfAm >90 (>60 ml/min/1.73 sqM) Est GFR (CKD-EPI)NonAf >90 (>60 ml/min/1.73 sqM) Glucose 123 H (74-99) mg/dL Plasma Lactic Acid [place] 1.1 (0.7-2.0) mmol/L Calcium 10.1 (8.4-10.2) mg/dL Total Bilirubin 0.7 (0.2-1.3) mg/dL AST 30 (17-59) U/L ALT 21 (4-49) U/L Alkaline Phosphatase 77 (38-126) U/L C-Reactive Protein 193.2 H (<10.0) mg/L Total Protein 6.1 L (6.3-8.2) g/dL Albumin 3.6 (3.5-5.0) g/dL Disposition Clinical Impression: Cellulitis, Leukocytosis, Elevated C-reactive protein (CRP) Disposition: ADMITTED IP TO THIS HOSP Condition: Fair Is patient prescribed a controlled substance at d/c from ED?: No Referrals: Jorge Trejo III, MD [Primary Care Provider] - 1-2 days Time of Disposition: 14:19
[2020-02-22 13:43] LABS: ALT 21 U/L (4-49); AST 30 U/L (17-59); African American GFR (CKD) >90 (>60 ml/min/1.73 sqM); Albumin 3.6 g/dL (3.5-5.0); Alkaline Phosphatase 77 U/L (38-126); Anion Gap 6 mmol/L; Blood Urea Nitrogen 15 mg/dL (9-20); Calcium 10.1 mg/dL (8.4-10.2); Carbon Dioxide 23 mmol/L (22-30); Chloride 106 mmol/L (98-107); Glucose 123 mg/dL (74-99); Non-African American GFR(CKD) >90 (>60 ml/min/1.73 sqM); Potassium 4.4 mmol/L (3.5-5.1); Sodium 135 mmol/L (137-145); Total Bilirubin 0.7 mg/dL (0.2-1.3); Total Protein 6.1 g/dL (6.3-8.2)
[2020-02-22 13:54] LABS: C Reactive Protein 193.2 mg/L (<10.0)
[2020-02-22] MEDS ORDERED: ONDANSETRON 4 MG/2 ML VIAL IVP PRN (14:19)
[2020-02-22] MEDS ORDERED: HYDROmorphone 0.5 MG/0.5 ML SYRINGE IVP PRN (14:19)
[2020-02-22] MEDS ORDERED: NALOXONE 0.4 MG/ML 1 ML VIAL IV PRN (14:19)
[2020-02-22] MEDS ORDERED: VANCOMYCIN IV PER PHARMACY 1 EACH MISC MISCELLANE PRN (14:36)
[2020-02-22] MEDS ORDERED: VANCOMYCIN 1,500 MG in SODIUM CHLORIDE 0.9% 250 ML IVPB ONE (14:45)
[2020-02-22] MEDS: SODIUM CHLORIDE 0.9% 1,000 ML IV SCH (14:57)
[2020-02-22] MEDS ORDERED: ACETAMINOPHEN TAB 325 MG TAB PO PRN (16:31)
[2020-02-22] MEDS: HYDROmorphone 0.5 MG/0.5 ML SYRINGE IVP PRN ×4 (16:57→23:28)
[2020-02-22] MEDS: KETOROLAC 15 MG/ML 1 ML VIAL IVP SCH ×2 (19:32→23:27)
[2020-02-22] MEDS ORDERED: HEPARIN SODIUM,PORCINE 5,000 UNIT/ML 1 ML VIAL SQ SCH (21:00)
[2020-02-22] MEDS ORDERED: diazePAM 5 MG TAB PO PRN (21:02)
--- NOTE | 2020-02-22 21:20 | US ---
EXAMINATION TYPE: US venous doppler duplex UE RT DATE OF EXAM: 02/22/2020 COMPARISON: NONE CLINICAL HISTORY: ro dvt vrs thrombophlebitis . R/O DVT versus thrombophlebitis. Pain and swelling to right arm. No hx of DVT SIDE PERFORMED: Right Right Arm: No evidence of DVT in veins imaged at this time within the right arm. Ulnar veins appear s mall. Unable to image ulnar veins with color Doppler; they do appear to compress. IMPRESSION: No evidence of deep vein thrombosis in the right arm.
[2020-02-22 21:31] LABS: INR 0.9 (<1.2); Prothrombin Time 9.9 sec (9.0-12.0)
[2020-02-22 21:35] LABS: Amphetamine Screen,Urine Not Detected (NotDetected); Barbiturate Screen,Urine Not Detected (NotDetected); Benzodiazepines Screen,Urine Detected (NotDetected); Cocaine Screen,Urine Detected (NotDetected); Methadone Screen, Urine Not Detected (NotDetected); Opiate Screen,Urine Detected (NotDetected); Oxycodone Screen, Urine Detected (NotDetected); Phencyclidine Screen,Urine Not Detected (NotDetected); Tricyclic Antidepressant,Urine Not Detected (NotDetected); Urn Cannabinoid Scrn Detected (NotDetected)
--- NOTE | 2020-02-22 22:43 | CT ---
EXAMINATION TYPE: CT upper extremity RT wo con DATE OF EXAM: 02/22/2020 COMPARISON: None HISTORY: Rt elbow cellulitis through hand CT DLP: 473.5 mGycm Automated exposure control for dose reduction was used. Images were obtained from the level of the distal humerus to the end of the fingers without contrast. FINDINGS: There is subcutaneous edema around the entire forearm extending proximally into the distal upper arm. There is hypodensity in the extensor carpi radialis muscle and brachial radialis muscle of the forea rm which measures 4 x 2.5 cm. I see no bony destructive process. I see no evidence of an acute fracture. There is evidence of old u nunited fracture of the scaphoid bone. The elbow joint is intact. There is extensive cystic changes i n the distal scaphoid bone, the trapezoid capitate bone. There is no dislocation. The metacarpals are intact. The fingers appear intact. I see no focal bone destruction to suggest osteomyelitis. Radioca rpal joint is anatomic. IMPRESSION: Extensive subcutaneous edema of the forearm. There is hypodensity and enlargement of muscle of the fo rearm as above in the extensor carpi radialis and the brachial radialis that could relate to myositis or hematoma. Developing abscess not excluded. No acute bony or metallic the. 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
--- NOTE | 2020-02-22 22:54 | HP ---
HISTORY AND PHYSICAL CHIEF COMPLAINTS: Severe pain and swelling of the right elbow and right upper forearm. HISTORY OF PRESENT ILLNESS: This 54-year-old gentleman with a past medical history of multiple medical problems, including history of renal disease, kidney stones, history of spondylosis, history of back pain and back surgery, being followed by Dr. Trejo in the outpatient setting, was noted to have significant right arm pain for the last several days this week. The patient states that the arm is red and swollen, especially starting from the elbow downwards, and movement is extremely painful. The patient is usually working with [employer], but cannot remember any injury, any history of an injury or any insect bite at this point. There is no history of any IV drug abuse. There is no history of any fever, rigor or chills. No headache, loss of consciousness, seizures. In the in the ER his WBC was 13.1. C-reactive protein was elevated at 193.2. The patient is admitted for evaluation and treatment. Elbow x-ray showed some soft tissue swelling. There is no history of any fever, rigor or chills. No history of headache, loss of consciousness, seizures. PAST MEDICAL HISTORY: History of DJD, history of renal disease, kidney stones, spondylosis. MEDICATIONS: Motrin and Valium 10 mg p.r.n. ALLERGIES: NONE. FAMILY HISTORY: History of lung cancer in the family. SOCIAL HISTORY: History of smoking, history of THC. REVIEW OF SYSTEMS: ENT: No diminished hearing. No diminished vision. CARDIOVASCULAR SYSTEM: No angina, palpitations. RESPIRATORY SYSTEM: As mentioned earlier. GI: No nausea, vomiting. : No dysuria or retention. NERVOUS SYSTEM: No numbness, weakness. ALLERGY/IMMUNOLOGY: No asthma, hayfever. MUSCULOSKELETAL: As mentioned earlier. HEMATOLOGY/ONCOLOGY: No history of anemia. ENDOCRINE: No history of diabetes, hypothyroidism. CONSTITUTIONAL: As mentioned earlier. DERMATOLOGY: As mentioned earlier. RHEUMATOLOGY: As mentioned earlier. PSYCHIATRY: Negative. JOINTS: As mentioned earlier. PHYSICAL EXAMINATION: Alert and oriented x3. Pulse is 77, blood pressure 112/70, respirations 16, temperature 98.1, T-max 99.7, pulse ox 97% on room air. HEENT: Conjunctivae normal. Oral mucosa moist. NECK: No jugular venous distention. No carotid bruit. No lymph node enlargement. CARDIOVASCULAR SYSTEM: S1, S2 muffled. No S3. No S4. RESPIRATORY SYSTEM: Breath sounds diminished at the bases. A few rhonchi. No crackles. ABDOMEN: Soft, non-tender. No mass palpable. LEGS: No edema. No swelling. NERVOUS SYSTEM: Higher functions as mentioned earlier. Moves all 4 limbs. No focal motor or sensory deficit. No focal deficit. LYMPHATICS: No lymph node palpable in neck, axillae or groin. SKIN: Right elbow with significant erythema and swelling and tenderness present. EXAMINATION OF RIGHT ARM: Significant swelling and tenderness of the right elbow radiating downward. Extremely painful touching and even with slight movement, 10/10 pain. LABS: WBC 13.1. Sodium 135. C-reactive protein is 193.2. ASSESSMENT: 1. Right elbow and forearm cellulitis with possible sepsis, present on admission. 2. Rule out acute gout. 3. Rule out superficial thrombophlebitis. 4. Hyponatremia. 5. Increased white count. 6. Increased CRP. 7. Increased random blood sugar. 8. History of kidney stones. 9. History of herniated disc. 10.History of spondylolysis. 11.History of nicotine dependence. 12.History of tetrahydrocannabinol, medical marijuana. 13.FULL CODE. RECOMMENDATIONS AND DISCUSSION: In this 54-year-old gentleman who presented with multiple complex medical issues, we will monitor the patient closely, continue the current medications, continue with symptomatic treatment. A combination of Rocephin and vancomycin has been initiated. Will obtain orthopedics as well as infectious disease evaluation. Recommend a CT scan of the upper extremity, including from the elbow downwards, to rule out the possibility of any pyomyositis or other abnormalities. I would also recommend ultrasound of the upper arm and the forearm to rule out the possibility of any superficial or deep thrombophlebitis. Symptomatic treatment will be provided and IV fluids and antibiotics. Pain medications. Drug screen. Prognosis extremely guarded because of multiple complex medical issues. Further recommendations to follow. A copy of this dictation is being forwarded to Dr. Trejo, who is the primary physician. MMNILAML / VESTAN: [id number] /
[2020-02-23] MEDS: HYDROmorphone 1 MG/ML 1 ML SYRINGE IVP PRN ×12 (00:06→22:12)
[2020-02-23] MEDS: VANCOMYCIN 1,500 MG in SODIUM CHLORIDE 0.9% 250 ML IVPB SCH ×2 (03:47→14:43)
[2020-02-23] MEDS: SODIUM CHLORIDE 0.9% 1,000 ML IV SCH ×2 (03:53→18:28)
[2020-02-23] MEDS: KETOROLAC 15 MG/ML 1 ML VIAL IVP SCH ×4 (06:02→23:22)
[2020-02-23] MEDS: LORazepam 2 MG/ML INJ IV PRN ×3 (06:05→23:23)
[2020-02-23 08:08] LABS: Basophils % (A) 0 %; Eosinophils # (A) 0.1 k/uL (0-0.7); Eosinophils % (A) 0 %; HCT 36.7 % (39.0-53.0); HGB 12.2 gm/dL (13.0-17.5); Lymphocytes # (A) 0.7 k/uL (1.0-4.8); Lymphocytes % (A) 5 %; MCHC 33.2 g/dL (31.0-37.0); MCV 90.5 fL (80.0-100.0); Mean Platelet Volume 8.8; Monocytes % (A) 8 %; Neutrophils # (A) 11.2 k/uL (1.3-7.7); Neutrophils % (A) 85 %; Platelet Count 193 k/uL (150-450); RBC 4.05 m/uL (4.30-5.90); WBC 13.1 k/uL (3.8-10.6)
[2020-02-23 08:19] LABS: African American GFR (CKD) >90 (>60 ml/min/1.73 sqM); Anion Gap 4 mmol/L; Blood Urea Nitrogen 14 mg/dL (9-20); Calcium 9.6 mg/dL (8.4-10.2); Carbon Dioxide 24 mmol/L (22-30); Chloride 106 mmol/L (98-107); Glucose 107 mg/dL (74-99); Non-African American GFR(CKD) >90 (>60 ml/min/1.73 sqM); Sodium 134 mmol/L (137-145)
[2020-02-23 08:23] LABS: Potassium 4.1 mmol/L (3.5-5.1)
--- NOTE | 2020-02-23 08:55 | P.PN ---
Progress Note - Text Progress Note Date: 02/23/20 Patient is a 54 year-old male who is admitted for cellulitis. We will evaluate the patient pending Covid-19 test results. In the meantime we will review his imaging.
[2020-02-23] MEDS ORDERED: cefTRIAXone IN SWFI 1,000 MG/10 ML SYRINGE IVP SCH (09:00)
[2020-02-23] MEDS ORDERED: NICOTINE 14MG/24HR PATCH TRANSDERM SCH (09:00)
[2020-02-23 14:06] LABS: Amorphous Sediment,Urine Moderate /hpf; Appearance,Urine Turbid (Clear); Bilirubin,Urine Negative (Negative); Blood,Urine Negative (Negative); Calcium Oxalate Crystals,Urine Few /hpf; Color,Urine Yellow; Glucose,Urine (UA) Negative (Negative); Ketones,Urine Negative (Negative); Leukocyte Esterase,Urine Negative (Negative); Mucus,Urine Occasional /hpf; Nitrite,Urine Negative (Negative); Protein,Urine Trace (Negative); RBC,Urine 13 /hpf (0-5); Specific Gravity,Urine 1.025 (1.001-1.035); Squamous Epithelial Cell,Urine 3 /hpf (0-4)
--- NOTE | 2020-02-23 14:28 | PN ---
PROGRESS NOTE DATE OF SERVICE: 02/23/2020 This is a 53-year-old gentleman admitted with severe pain and swelling of the right elbow and right upper forearm. The CT scan showed possible evidence of myositis. No local abscess was noted. Extensive subcutaneous edema was also noted. Orthopedic Surgery is following the patient closely and recommending antibiotics. The venous ultrasound was also done on the right upper limb, which showed no evidence of DVT in the right arm. PAST MEDICAL HISTORY: Reviewed. REVIEW OF SYSTEMS: CARDIOVASCULAR SYSTEM: No angina. RESPIRATION: As mentioned earlier. GI: As mentioned earlier. MUSCULOSKELETAL: As mentioned earlier. DERMATOLOGY: As mentioned earlier. CURRENT MEDICATIONS: Reviewed include Tylenol, Rocephin 1 g IV daily, Valium, Dilaudid, Toradol, Ativan, vancomycin, Habitrol. PHYSICAL EXAM: Patient is alert oriented x3, pulse 86, blood pressure 120/72, respirations 16, temperature 98.2, pulse ox 97% on room air. HEENT: Conjunctivae normal. Oral mucosa moist. NECK: No jugular venous distention. No lymph node enlargement. CARDIOVASCULAR SYSTEM: S1, S2, muffled. RESPIRATION: Breath sounds diminished at the bases, no rhonchi, no crackles. ABDOMEN: Soft. Examination of the right arm significant swelling and tenderness and erythema of the right elbow and right forearm present. Movements significantly restricted right elbow and as well as right wrist joint. NERVOUS SYSTEM: No focal deficits. LABS: WBC 13.2, hemoglobin 12.2, sodium 132. Cultures are pending at this time. Drug screen is positive for opiates, oxycodone, benzodiazepines, cocaine and THC. ASSESSMENT: 1. Right elbow and forearm cellulitis with possible myositis, rule out fasciitis with possible sepsis present on admission. 2. No evidence of any superficial thrombophlebitis. 3. Hyponatremia. 4. Increased WBC. 5. Increased CRP. 6. Increased random blood sugar. 7. History of kidney stones. 8. History of herniated disc. 9. History of spondylosis. 10.History of nicotine dependence. 11.History of THC, medical marijuana and polysubstance abuse including cocaine. 12.FULL CODE. RECOMMENDATION: Recommend to continue current management and continue with broad-spectrum IV antibiotics. Follow closely. Orthopedic surgery, Infectious Disease. Continue the antibiotics cultures. White count is still elevated. Surgical exploration per Orthopedic Surgery. Urine drug screen noted. Will provide symptomatic treatment, CRP noted. Guarded prognosis because of multiple complex medical issues. Further recommendations to follow. MMODL / IJN: [id number] /
--- NOTE | 2020-02-23 22:27 | P.CONS ---
History of Present Illness - Reason for Consult Consult date: 02/23/20 Left upper extremity cellulitis Requesting physician: Ricardo Mcneil - Chief Complaint Left arm pain swelling x 1 week - History of Present Illness Patient is 54 year male presenting to the ER at [facility] yesterday afternoon for evaluation of the left upper extremity pain swelling and redness that is going on for 1 week patient denies having any history of any trauma and no history of IV drug use in mention last week he woke up and did have a urine swelling redness to the left forearm ration has been using some ibuprofen and icing the arm but did not have any significant improvement with persistent symptoms patient presented to the ER on March the patient did have a low-grade fever patient did have pain to the left arm to be throbbing almost 10 out of 10 in severity and no radiation the patient currently is not having open wound or any drainage, on rounds the patient did have temperature of 99.7 white count elevated 13.1 and the function was normal results normal CRP is 193.2 urine drug screen was positive for opiates oxycodone lines of cocaine and marijuana, patient did have ultrasound of the left lower extremity was negative for DVT patient did have CT of the left upper extremity DVT shows extensive serpiginous edema of the forearm hyperdensity enlargement of the muscles of the forearm concern for possible myositis or hematoma developing this is not excluded patient had been evaluated by orthopedic surgery regarding medical management patient is currently treated with vancomycin and Rocephin facility was consulted for further management of antibiotic therapy Review of Systems Positive point has been mentioned in the HPI rest of the systems are negative Past Medical History Past Medical History: Renal Disease Additional Past Medical History / Comment(s): kidney stones, herniated/slipped disk,SPONDYLOLISTHESIS, DDD, low back pain. started 04/12/16 on antibiotic for UTI-2 PILLS LEFT TO TAKE. History of Any Multi-Drug Resistant Organisms: None Reported Past Surgical History: No Surgical Hx Reported Additional Past Surgical History / Comment(s): Litotripsy, Kidney stone removal. Past Anesthesia/Blood Transfusion Reactions: No Reported Reaction Additional Past Anesthesia/Blood Transfusion Reaction / Comm: clausterphobia Past Psychological History: No Psychological Hx Reported Smoking Status: Current every day smoker Past Alcohol Use History: None Reported Past Drug Use History: Marijuana - Past Family History Mother Family Medical History: Cancer Additional Family Medical History / Comment(s): LUNG CANCER- SMOKER Medications and Allergies Home Medications Medication Instructions Recorded Confirmed Type Diazepam [Valium] 10 mg PO HS PRN 02/22/20 02/22/20 History Ibuprofen [Motrin Ib] 600 mg PO Q8H PRN 02/22/20 02/22/20 History Allergies Allergy/AdvReac Type Severity Reaction Status Date / Time No Known Allergies Allergy Verified 02/22/20 14:22 Physical Exam Vitals: Vital Signs Temp Pulse Resp BP BP Pulse Ox 02/23/20 08:07 98.2 F 86 16 122/73 97 02/23/20 02:55 98.6 F 88 18 144/80 99 02/22/20 21:00 98.6 F 88 18 144/80 99 02/22/20 15:00 98.1 F 77 16 112/71 97 02/22/20 14:51 99.7 F H 84 18 Intake and Output 02/22/20 02/23/20 02/23/20 22:59 06:59 14:59 Other: Voiding Method Toilet Toilet # Voids 1 1 GENERAL DESCRIPTION: Middle-aged male lying in bed, no distress. No tachypnea or accessory muscle of respiration use. HEENT: Shows Pallor , no scleral icterus. Oral mucous membrane is dry. No pharyngeal erythema or thrush NECK: Trachea central, no thyromegaly. LUNGS: Unlabored breathing. Clear to auscultation anteriorly. No wheeze or crackle. HEART: S1, S2, regular rate and rhythm. No loud murmur ABDOMEN: Soft, no tenderness , guarding or rigidity, no organomegaly EXTREMITIES: Left upper extremity mostly forearm has diffuse swelling and redness no pulmonary drainage SKIN: No rash, no masses palpable. NEUROLOGICAL: The patient is awake, alert, oriented x3, mood and affect normal. Results CBC & Chem 7: 02/23/20 07:36 02/23/20 07:36 Labs: Abnormal Lab Results - Last 24 Hours (Table) 02/22/20 02/22/20 02/22/20 Range/Units 12:40 12:40 20:51 WBC 13.1 H (3.8-10.6) k/uL RBC (4.30-5.90) m/uL Hgb (13.0-17.5) gm/dL Hct (39.0-53.0) % Neutrophils # 11.2 H (1.3-7.7) k/uL Lymphocytes # 0.8 L (1.0-4.8) k/uL Sodium 135 L (137-145) mmol/L Glucose 123 H (74-99) mg/dL C-Reactive Protein 193.2 H (<10.0) mg/L Total Protein 6.1 L (6.3-8.2) g/dL Urine Opiates Screen Detected H (NotDetected) Ur Oxycodone Screen Detected H (NotDetected) U Benzodiazepines Scrn Detected H (NotDetected) Urine Cocaine Screen Detected H (NotDetected) U Marijuana (THC) Screen Detected H (NotDetected) 02/23/20 02/23/20 Range/Units 07:36 07:36 WBC 13.1 H (3.8-10.6) k/uL RBC 4.05 L (4.30-5.90) m/uL Hgb 12.2 L (13.0-17.5) gm/dL Hct 36.7 L (39.0-53.0) % Neutrophils # 11.2 H (1.3-7.7) k/uL Lymphocytes # 0.7 L (1.0-4.8) k/uL Sodium 134 L (137-145) mmol/L Glucose 107 H (74-99) mg/dL C-Reactive Protein (<10.0) mg/L Total Protein (6.3-8.2) g/dL Urine Opiates Screen (NotDetected) Ur Oxycodone Screen (NotDetected) U Benzodiazepines Scrn (NotDetected) Urine Cocaine Screen (NotDetected) U Marijuana (THC) Screen (NotDetected) Microbiology - Last 24 Hours (Table) 02/22/20 20:51 Urine Culture - Preliminary Urine,Clean Catch Assessment and Plan Assessment: 1- patient presented to the hospital left upper extremity cellulitis in this patientof any trauma and denies any IV drug use though his urine dressing has been positive for multiple meds, CT has been suggestive of possible myositis or hematoma, ortho has evaluated the patient, no surgical intervention at this point will need for further no pauses confirmed with likely pathogen associated with the cellulitis with concern for possible strep versus community associated MRSA (1) Cellulitis of left upper extremity Current Visit: Yes Status: Acute Code(s): L03.114 - CELLULITIS OF LEFT UPPER LIMB SNOMED Code(s): 347766071 Plan: 1-Vancomycin pharmacy to dose target trough of 15 while watching kidney f unction and Vanco trough closely 2-switched to Rocephin to clindamycin 900 every 8 hours 3-we will repeat his CRP, CPK in the morning Will follow on a clinical condition and cultures to further adjust medication if needed Thank you for this consultation will follow this patient along with you Time with Patient: Greater than 30
[2020-02-23 22:33] VITALS: BP 119/67; PULSE 95; RESP 17; TEMP 99.1
[2020-02-24] MEDS ORDERED: CLINDAMYCIN 900 MG in DEXTROSE 5% IN WATER 50 ML IVPB SCH ×2
[2020-02-24] MEDS ORDERED: VANCOMYCIN TROUGH DUE 1 EACH MISC MISCELLANE ONE (14:00)
--- NOTE | 2020-02-26 23:28 | DS ---
DISCHARGE SUMMARY FINAL DIAGNOSES: 1. Right elbow forearm cellulitis with possible myositis with possible fasciitis and sepsis, present on admission, with possible compartment syndrome. 2. No evidence of any superficial thrombophlebitis. 3. Hyponatremia. 4. Increased WBC. 5. Increased CRP. 6. Increased random blood sugar. 7. History of kidney stones. 8. History of herniated disc. 9. History of spondylosis. 10.Nicotine dependence. 11.History of tetrahydrocannabinol, medical marijuana, polysubstance abuse, including cocaine. 12.FULL CODE. DISCHARGE DISPOSITION: The patient will be transferred to [facility] for evaluation of the compartment syndrome per recommendation of Orthopedic Surgery. HISTORY OF PRESENT ILLNESS: This 54-year-old gentleman with a past medical history of multiple medical problems, had right arm, elbow and forearm cellulitis and possible myositis and abscess. Patient was treated with IV antibiotics. CT scan was done. The patient was also seen by Orthopedic Surgery as well as Infectious Disease. Please refer to their respective notes and progress notes and staff notes for further details. Per Orthopedic Surgery's recommendations, the patient was transferred to [facility] for the suspicion of compartment syndrome. The prognosis was extremely guarded throughout the hospital stay. Please refer to the medication reconciliation sheet for current medications. MMODL / IJN: [id number] /
== END 2020-02-24 03:30 | disposition other institution (70) ==
LOC: EC 11:52 → 1SOBS 14:27
PROVIDERS: ADMIT Hospitalist; ATTEND Hospitalist
DX: L03.114 Cellulitis of left upper limb (principal); A41.9 Sepsis, unspecified organism; E87.1 Hypo-osmolality and hyponatremia; R73.9 Hyperglycemia, unspecified; Z87.442 Personal history of urinary calculi; M47.819 Spondylosis without myelopathy or radiculopathy, site unspecified; F17.200 Nicotine dependence, unspecified, uncomplicated; Z79.899 Other long term (current) drug therapy; F14.11 Cocaine abuse, in remission; Z80.1 Family history of malignant neoplasm of trachea, bronchus and lung; N39.0 Urinary tract infection, site not specified; N28.9 Disorder of kidney and ureter, unspecified; M43.10 Spondylolisthesis, site unspecified; M54.5 Low back pain; Z98.890 Other specified postprocedural states; F40.240 Claustrophobia; M19.90 Unspecified osteoarthritis, unspecified site
CPT/HCPCS: 96361; 96366 ×2; 96367; 96375 ×2; 96376 ×2; 96365; 99284; 36415; 80053; 80048; 83605; 85025 ×2; 85610; 86140; 81001; 87040; 80306; 87086; 73080; 93971; 73200; G0378 ×3; J3370 ×2; J2060; J0696; J1170 ×2; J1885 ×2

== ENCOUNTER 2020-12-27 12:41 | Observation (INO) | payer BC, OTHER ==
[2020-12-27] MEDS ORDERED: SODIUM CHLORIDE 0.9% 500 ML 500 ML IV STA (13:42)
[2020-12-27] MEDS ORDERED: SODIUM CHLORIDE 0.9% 1,000 ML IV STA (13:42)
[2020-12-27] MEDS ORDERED: KETOROLAC 15 MG/ML 1 ML VIAL IVP STA (13:48)
[2020-12-27] MEDS ORDERED: ONDANSETRON 4 MG/2 ML VIAL IVP STA ×2 (13:48→15:34)
[2020-12-27 14:21] LABS: Basophils # (A) 0.1 k/uL (0-0.2); Basophils % (A) 1 %; Eosinophils # (A) 0.2 k/uL (0-0.7); Eosinophils % (A) 2 %; HCT 49.5 % (39.0-53.0); HGB 16.7 gm/dL (13.0-17.5); Lymphocytes # (A) 1.3 k/uL (1.0-4.8); Lymphocytes % (A) 15 %; MCH 32.3 pg (25.0-35.0); MCHC 33.7 g/dL (31.0-37.0); MCV 95.8 fL (80.0-100.0); Mean Platelet Volume 9.4; Monocytes # (A) 0.6 k/uL (0-1.0); Monocytes % (A) 7 %; Neutrophils # (A) 6.5 k/uL (1.3-7.7); Neutrophils % (A) 74 %; Platelet Count 196 k/uL (150-450); RBC 5.17 m/uL (4.30-5.90); RDW 13.1 % (11.5-15.5); WBC 8.8 k/uL (3.8-10.6)
--- NOTE | 2020-12-27 14:22 | ED ---
Abdominal Pain HPI - General Chief Complaint: Abdominal Pain Stated Complaint: flank pain Time Seen by Provider: 12/27/20 13:42 Source: patient, RN notes reviewed Mode of arrival: wheelchair Limitations: no limitations - History of Present Illness Initial Comments: This is 55-year-old male presents emergency for chief complaint abdominal pain no flank pain. Patient states started a few days ago. Patient states it has Worsen states he feels bilateral and feels like his prior kidney stones. Patient admits to slight nausea no vomiting. Patient has NO KNOWN DRUG ALLERGIES. Requests no narcotics. Patient states she's had multiple procedures done for kidney stones. - Related Data Home Medications Medication Instructions Recorded Confirmed Diazepam [Valium] 10 mg PO HS PRN 02/22/20 02/22/20 Ibuprofen [Motrin Ib] 600 mg PO Q8H PRN 02/22/20 02/22/20 Allergies Allergy/AdvReac Type Severity Reaction Status Date / Time No Known Allergies Allergy Verified 12/27/20 13:02 Review of Systems ROS Statement: Those systems with pertinent positive or pertinent negative responses have been documented in the HPI. ROS Other: All systems not noted in ROS Statement are negative. Past Medical History Past Medical History: Renal Disease Additional Past Medical History / Comment(s): kidney stones, herniated/slipped disk,SPONDYLOLISTHESIS, DDD, low back pain. started 04/12/16 on antibiotic for UTI-2 PILLS LEFT TO TAKE. History of Any Multi-Drug Resistant Organisms: None Reported Past Surgical History: No Surgical Hx Reported Additional Past Surgical History / Comment(s): Litotripsy, Kidney stone removal. Past Anesthesia/Blood Transfusion Reactions: No Reported Reaction Additional Past Anesthesia/Blood Transfusion Reaction / Comment(s): clausterphobia Past Psychological History: No Psychological Hx Reported Smoking Status: Current every day smoker Past Alcohol Use History: None Reported Past Drug Use History: Marijuana - Past Family History Mother Family Medical History: Cancer Additional Family Medical History / Comment(s): LUNG CANCER- SMOKER General Exam Limitations: no limitations General appearance: alert, in no apparent distress Head exam: Present: atraumatic, normocephalic, normal inspection Respiratory exam: Present: normal lung sounds bilaterally. Absent: respiratory distress, wheezes, rales, rhonchi, stridor Cardiovascular Exam: Present: regular rate, normal rhythm, normal heart sounds. Absent: systolic murmur, diastolic murmur, rubs, gallop, clicks GI/Abdominal exam: Present: soft, normal bowel sounds. Absent: distended, tenderness, guarding, rebound, rigid Back exam: Present: CVA tenderness (R), CVA tenderness (L) Neurological exam: Present: alert, oriented X3 Course Vital Signs 12/27/20 13:00 Temperature 98.1 F Pulse Rate 85 Respiratory 20 Rate Blood Pressure 121/82 O2 Sat by Pulse 98 Oximetry Medical Decision Making - Medical Decision Making Patient has a large left UPJ stone measuring 13 mm. I did discuss case with urologist offered admission for pain control. Patient is well-known to Dr. Duarte's service. I did discuss the case with Dr. Reyes - Lab Data Result diagrams: 12/27/20 14:08 12/27/20 14:08 Lab Results 12/27/20 12/27/20 12/27/20 Range/Units 13:07 14:08 14:08 WBC 8.8 (3.8-10.6) k/uL RBC 5.17 (4.30-5.90) m/uL Hgb 16.7 (13.0-17.5) gm/dL Hct 49.5 (39.0-53.0) % MCV 95.8 (80.0-100.0) fL MCH 32.3 (25.0-35.0) pg MCHC 33.7 (31.0-37.0) g/dL RDW 13.1 (11.5-15.5) % Plt Count 196 (150-450) k/uL MPV 9.4 Neutrophils % 74 % Lymphocytes % 15 % Monocytes % 7 % Eosinophils % 2 % Basophils % 1 % Neutrophils # 6.5 (1.3-7.7) k/uL Lymphocytes # 1.3 (1.0-4.8) k/uL Monocytes # 0.6 (0-1.0) k/uL Eosinophils # 0.2 (0-0.7) k/uL Basophils # 0.1 (0-0.2) k/uL Sodium 135 L (137-145) mmol/L Potassium 4.4 (3.5-5.1) mmol/L Chloride 109 H (98-107) mmol/L Carbon Dioxide 20 L (22-30) mmol/L Anion Gap 6 mmol/L BUN 26 H (9-20) mg/dL Creatinine 1.22 (0.66-1.25) mg/dL Est GFR (CKD-EPI)AfAm 77 (>60 ml/min/1.73 sqM) Est GFR (CKD-EPI)NonAf 66 (>60 ml/min/1.73 sqM) Glucose 111 H (74-99) mg/dL Calcium 10.8 H (8.4-10.2) mg/dL Total Bilirubin 0.3 (0.2-1.3) mg/dL AST 30 (17-59) U/L ALT 25 (4-49) U/L Alkaline Phosphatase 86 (38-126) U/L Total Protein 6.7 (6.3-8.2) g/dL Albumin 4.3 (3.5-5.0) g/dL Amylase 78 (30-110) U/L Lipase 90 (23-300) U/L Urine Color Yellow Urine Appearance Clear (Clear) Urine pH 6.5 (5.0-8.0) Ur Specific [place] 1.017 (1.001-1.035) Urine Protein 1+ H (Negative) Urine Glucose (UA) Negative (Negative) Urine Ketones Negative (Negative) Urine Blood Large H (Negative) Urine Nitrite Negative (Negative) Urine Bilirubin Negative (Negative) Urine Urobilinogen <2.0 (<2.0) mg/dL Ur Leukocyte Esterase Moderate H (Negative) Urine RBC >182 H (0-5) /hpf Urine WBC 15 H (0-5) /hpf Ur Squamous Epith Cells <1 (0-4) /hpf Urine Mucus Rare H (None) /hpf Disposition Clinical Impression: Obstruction of left ureteropelvic junction (UPJ) due to stone Disposition: ADMITTED IP TO THIS [facility] Condition: Fair Referrals: Jorge Trejo III, MD [Primary Care Provider] - 1-2 days
[2020-12-27 14:33] LABS: Appearance,Urine Clear (Clear); Bilirubin,Urine Negative (Negative); Blood,Urine Large (Negative); Color,Urine Yellow; Glucose,Urine (UA) Negative (Negative); Ketones,Urine Negative (Negative); Leukocyte Esterase,Urine Moderate (Negative); Mucus,Urine Rare /hpf; Nitrite,Urine Negative (Negative); PH, Urine 6.5 (5.0-8.0); Protein,Urine 1+ (Negative); RBC,Urine >182 /hpf (0-5); Specific Gravity,Urine 1.017 (1.001-1.035); Squamous Epithelial Cell,Urine <1 /hpf (0-4); Urobilinogen,Urine <2.0 mg/dL (<2.0); WBC,Urine 15 /hpf (0-5)
[2020-12-27 14:40] LABS: Albumin 4.3 g/dL (3.5-5.0); Calcium 10.8 mg/dL (8.4-10.2); Potassium 4.4 mmol/L (3.5-5.1); Total Bilirubin 0.3 mg/dL (0.2-1.3); Total Protein 6.7 g/dL (6.3-8.2)
--- NOTE | 2020-12-27 15:12 | CT ---
EXAMINATION TYPE: CT abdomen pelvis wo con DATE OF EXAM: 12/27/2020 COMPARISON: 05/16/2019 HISTORY: 55-year-old male bilateral flank pain, worse on left, history of renal stones CT DLP: 714 mGycm. Automated exposure control for dose reduction was used. TECHNIQUE: Contiguous axial scanning of the abdomen and pelvis without IV contrast. Coronal and sagit jory reconstructions performed. FINDINGS: Heart normal size without pericardial effusion. Some strandy atelectasis in the lower lungs without p leural effusion. Tiny hiatal hernia suggested. Noncontrast appearance of the liver, gallbladder, adrenal glands, spleen, and pancreas show no gross abnormality. Approximate 4 nonobstructive right renal calculi measuring up to 1.0 cm. Left kidney is slightly malrotated and contains a 1.3 cm calculus at the UPJ with mild hydronephrosis . No dilated small bowel, free fluid, or free air. No mesenteric or retroperitoneal lymphadenopathy. Normal appendix. Mild stool burden. Left-sided colonic diverticulosis, greatest in the sigmoid colon. No pericolonic inflammatory change. Bladder nondistended. Prostate gland measures 2.7 cm wide with extensive central prostate calcificati ons. A few pelvic phlebolith. No abnormal fluid collection in the pelvis or pelvic lymphadenopathy. Bones: Status post L4-S1 posterior fusion. Interbody fusion at L5-S1. Excreted 1 anterolisthesis here . Corresponding laminectomy change. Degenerative disc disease and facet arthropathy and grade 1 retro listhesis above the fusion at L3-L4. IMPRESSION: 1. A 1.3 cm calculus at the left UPJ with mild obstructive uropathy. 2. Four nonobstructive right renal calculi measuring up to 1.0 cm. 3. Left-sided colonic diverticulosis, greatest in the sigmoid colon.
[2020-12-27] MEDS ORDERED: HYDROmorphone 1 MG/ML 1 ML SYRINGE IVP STA ×2 (15:34→15:38)
[2020-12-27] MEDS ORDERED: NALOXONE 0.4 MG/ML 1 ML VIAL IV PRN (15:35)
[2020-12-27] MEDS ORDERED: ONDANSETRON 4 MG/2 ML VIAL IVP PRN (15:35)
[2020-12-27] MEDS: SODIUM CHLORIDE 0.9% 1,000 ML IV SCH (18:07)
[2020-12-27] MEDS ORDERED: ACETAMINOPHEN TAB 325 MG TAB PO PRN (19:28)
[2020-12-27] MEDS: HYDROmorphone 1 MG/ML 1 ML SYRINGE IVP PRN ×2 (19:41→23:40)
[2020-12-27] MEDS: KETOROLAC 15 MG/ML 1 ML VIAL IVP PRN (21:32)
[2020-12-28] MEDS: KETOROLAC 15 MG/ML 1 ML VIAL IVP PRN ×2 (02:50→09:14)
[2020-12-28] MEDS: HYDROmorphone 1 MG/ML 1 ML SYRINGE IVP PRN ×3 (03:46→13:20)
[2020-12-28] MEDS: SODIUM CHLORIDE 0.9% 1,000 ML IV SCH ×2 (06:09→09:05)
[2020-12-28] MEDS ORDERED: LACTATED RINGERS 1,000 ML IV ONE (10:13)
[2020-12-28] MEDS ORDERED: PROPOFOL 10 MG/ML 20 ML VIAL IV ONE (10:16)
[2020-12-28] MEDS ORDERED: LIDOCAINE 1% INJ 10MG/ML (20 ML MDV) ONE (10:16)
[2020-12-28] MEDS ORDERED: ROCURONIUM 10 MG/ML (5 ML VIAL) IV ONE (10:16)
[2020-12-28] MEDS ORDERED: MIDAZOLAM 2 MG/2 ML VIAL ONE (10:16)
[2020-12-28] MEDS ORDERED: ePHEDrine SULFATE/0.9% NACL/PF 50 MG/5 ML SYRINGE IV ONE (10:16)
[2020-12-28] MEDS ORDERED: GLYCOPYRROLATE 0.2 MG/ML 2 ML VIAL ONE (10:16)
[2020-12-28] MEDS ORDERED: SUCCINYLCHOLINE CHLORIDE 100 MG/5 ML SYR IV ONE (10:16)
[2020-12-28] MEDS ORDERED: NEOSTIGMINE 1 MG/ML 10 ML VIAL ONE (10:16)
[2020-12-28] MEDS ORDERED: fentaNYL (PF) 50 MCG/ML 2 ML AMP ONE (10:16)
[2020-12-28] MEDS ORDERED: SODIUM CHLORIDE 0.9% 100 ML with ceFAZolin 2,000 MG IV ONE ×2 (10:21)
--- NOTE | 2020-12-28 10:29 | P.GSHP ---
History of Present Illness H&P Date: 12/28/20 This is a 55 yo male with hx of recurrent kidney stones, he follows up with Dr Duarte for managment of his kidney stone. He presented to the ED with left flank pain associated with gross hematuria. He underwent a CT which showed a 1.3 cm left sided UPJ stone with hydronephrosis. This am he is still having intractable pain requiring IV pain medications. Denies any dysuria, or fever/chills. He had Required ESWL and PCNL in the past to address his stones - Constitutional Constitutional: Denies chills, Denies fever - Cardiovascular Cardiovascular: Denies chest pain, Denies shortness of breath - Respiratory Respiratory: Denies cough, Denies 7 - Gastrointestinal Gastrointestinal: Reports abdominal pain - Genitourinary (Female) Genitourinary: Reports flank pain, Reports hematuria, Reports kidney stones - Genitourinary (Male) Genitourinary: Reports flank pain, Reports hematuria, Denies dysuria - Musculoskeletal Musculoskeletal: Denies myalgias - Integumentary Integumentary: Denies pruritus, Denies rash - Neurological Neurological: Denies numbness, Denies weakness Past Medical History Past Medical History: Renal Disease Additional Past Medical History / Comment(s): kidney stones, herniated/slipped disk,SPONDYLOLISTHESIS, DDD, low back pain. started 04/12/16 on antibiotic for UTI-2 PILLS LEFT TO TAKE. History of Any Multi-Drug Resistant Organisms: None Reported Past Surgical History: No Surgical Hx Reported Additional Past Surgical History / Comment(s): Litotripsy, Kidney stone removal. Past Anesthesia/Blood Transfusion Reactions: No Reported Reaction Additional Past Anesthesia/Blood Transfusion Reaction / Comment(s): clausterphobia Past Psychological History: No Psychological Hx Reported Additional Psychological History / Comment(s): Pt resides with his significant other. He is independent. He uses no assistive device. He drives. 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 Smoking Status: Current every day smoker Past Alcohol Use History: None Reported Additional Past Alcohol Use History / Comment(s): Pt started smoking about age 37 or 38. He was at one time up to 2 ppd but is quitiing after this admission and is down to smoking 4-5 cig per day before this admit. Pt has not drank any alcohol in 15 yrs. Past Drug Use History: Marijuana Additional Drug Use History / Comment(s): RARE MED MARIJUANA . - Past Family History Mother Family Medical History: Cancer Additional Family Medical History / Comment(s): LUNG CANCER- SMOKER Medications and Allergies Home Medications Medication Instructions Recorded Confirmed Type No Known Home Medications 12/27/20 12/27/20 History Allergies Allergy/AdvReac Type Severity Reaction Status Date / Time No Known Allergies Allergy Verified 12/27/20 16:05 Surgical - Exam Vital Signs Temp Pulse Resp BP Pulse Ox 98.1 F 85 20 121/82 98 12/27/20 13:00 12/27/20 13:00 12/27/20 13:00 12/27/20 13:00 12/27/20 13:00 - General moderate distress, severe pain - Eyes PERRL, normal ocular movement - ENT normal nares, normal mucosa - Respiratory normal expansion, normal respiratory effort - Abdomen Abdomen: soft, non tender - Psychiatric oriented to time, oriented to person, oriented to place Results - Labs 12/27/20 14:08 12/27/20 14:08 Abnormal Lab Results - Last 24 Hours (Table) 12/27/20 12/27/20 Range/Units 13:07 14:08 Sodium 135 L (137-145) mmol/L Chloride 109 H (98-107) mmol/L Carbon Dioxide 20 L (22-30) mmol/L BUN 26 H (9-20) mg/dL Glucose 111 H (74-99) mg/dL Calcium 10.8 H (8.4-10.2) mg/dL Urine Protein 1+ H (Negative) Urine Blood Large H (Negative) Ur Leukocyte Esterase Moderate H (Negative) Urine RBC >182 H (0-5) /hpf Urine WBC 15 H (0-5) /hpf Urine Mucus Rare H (None) /hpf Microbiology - Last 24 Hours (Table) 12/27/20 13:07 Urine Culture - Preliminary Urine,Voided Diabetes panel 12/27/20 Range/Units 14:08 Sodium 135 L (137-145) mmol/L Potassium 4.4 (3.5-5.1) mmol/L Chloride 109 H (98-107) mmol/L Carbon Dioxide 20 L (22-30) mmol/L BUN 26 H (9-20) mg/dL Creatinine 1.22 (0.66-1.25) mg/dL Glucose 111 H (74-99) mg/dL Calcium 10.8 H (8.4-10.2) mg/dL AST 30 (17-59) U/L ALT 25 (4-49) U/L Alkaline Phosphatase 86 (38-126) U/L Total Protein 6.7 (6.3-8.2) g/dL Albumin 4.3 (3.5-5.0) g/dL Calcium panel 12/27/20 Range/Units 14:08 Calcium 10.8 H (8.4-10.2) mg/dL Albumin 4.3 (3.5-5.0) g/dL Pituitary panel 12/27/20 Range/Units 14:08 Sodium 135 L (137-145) mmol/L Potassium 4.4 (3.5-5.1) mmol/L Chloride 109 H (98-107) mmol/L Carbon Dioxide 20 L (22-30) mmol/L BUN 26 H (9-20) mg/dL Creatinine 1.22 (0.66-1.25) mg/dL Glucose 111 H (74-99) mg/dL Calcium 10.8 H (8.4-10.2) mg/dL Adrenal panel 12/27/20 Range/Units 14:08 Sodium 135 L (137-145) mmol/L Potassium 4.4 (3.5-5.1) mmol/L Chloride 109 H (98-107) mmol/L Carbon Dioxide 20 L (22-30) mmol/L BUN 26 H (9-20) mg/dL Creatinine 1.22 (0.66-1.25) mg/dL Glucose 111 H (74-99) mg/dL Calcium 10.8 H (8.4-10.2) mg/dL Total Bilirubin 0.3 (0.2-1.3) mg/dL AST 30 (17-59) U/L ALT 25 (4-49) U/L Alkaline Phosphatase 86 (38-126) U/L Total Protein 6.7 (6.3-8.2) g/dL Albumin 4.3 (3.5-5.0) g/dL Assessment and Plan Assessment: This is a 55 yo male with hx of 1.3 left UPJ stone -Keep NPO -OR for left sided ureteroscopy with holmium laser and stent placement
[2020-12-28] MEDS ORDERED: IOHEXOL 350 MG/ML 50 ML in EMPTY BAG 1 BAG IRRIGATION ONE (10:46)
--- NOTE | 2020-12-28 11:39 | P.OP ---
Date of Procedure: 12/28/20 Preoperative Diagnosis: Left ureteral stone Postoperative Diagnosis: Same Procedure(s) Performed: Cystoscopy, left ureteroscopy laser lithotripsy, placement of 6 x 26 stent Anesthesia: CHANO Surgeon: Henok Duarte Estimated Blood Loss (ml): 0 Pathology: none sent Condition: stable Disposition: PACU Indications for Procedure: The patient is 55. He has a history of stones. He is admitted by yesterday with a 13 mm UPJ stone. He comes for cystoscopy left ureteroscopy and laser lithotripsy Description of Procedure: Patient brought operating suite. He is given a general anesthesia. Placed lithotomy position with sterile prep and drape. Cystoscopy Foroblique lens and 21-Citizen [place] sheath identifies a normal urethra. The prostate is not obstructing. Left ureteral orifice is identified. An 035 wires passed up the ureter into the renal pelvis by the stone. Over the wire attempt to pass a 15-30-Vtlnpw reentry sheath but I failed to do so. Then removed the reentry sheath and passed a 4-12-Citizen [place] dilating ureteral catheter and dilate the intramural tunnel. I then attempted pass 28-44-Gvldmn reentry sheath but again failed to do so. I then pass a semirigid 7-Citizen [place] ureteroscope through the ureter up to the UPJ where the stone was identified. With the 270 probe I slowly dust the stone into very small fragments. If larger fragment migrates into a posterior lower pole calyx that I'm not able to access with the rigid scope. I then once again attempt to pass the reentry sheath into the collecting system but unable to do so. Then over the wire pass the flexible ureteroscope up into the collecting system. I remove the wire and passed the laser probe into the lower pole calyx where the stone was identified and fracture and dust the stone completely. At the end of the procedure there is no significant fragments that would be basketed. I repassed the wire through the ureteroscope and then backloaded onto the cystoscope. Over the wires and passed a 6 x 26 double-J catheter that coils in the renal pelvis and the bladder the bladder shown the patient awake and returned recovery room good condition Impression successful left ureteroscopy laser lithotripsy. Recommendations. The patient will undergo stent removal about one week from now. He will then pass a second after that. His condition is good
--- NOTE | 2020-12-28 11:40 | P.DS ---
Providers Date of admission: 12/27/20 15:34 Attending physician: Chato Reyes MD Primary care physician: Jorge Trejo [facility] Course: Patient is 55 with a history of stones. He is admitted yesterday with a 13 mm UPJ obstructing stone. He underwent ureteroscopy laser lithotripsy with stent placement today. He'll be discharged home later today on a regular diet. He will use Tylenol or Motrin for pain. He requests no narcotics. His diet is regular his activities Limited. He'll follow-up in the office in one week for stent removal. His condition is good. Patient Condition at Discharge: Good Plan - Discharge Summary Discharge Rx Participant: No New Discharge Prescriptions: No Action No Known Home Medications Discharge Medication List No Known Home Medications 12/27/20 [History] Follow up Appointment(s)/Referral(s): Jorge Trejo III, MD [Primary Care Provider] - 1-2 days Henok Duarte MD [Family Provider] - 1 Week (Cystoscopy and stent removal) Discharge Disposition: HOME SELF-CARE
--- NOTE | 2020-12-28 12:03 | FL ---
Fluoroscopy History: L SIDE STONE 25 seconds of fluoroscopic time and 2 films are submitted for L SIDE STONE .
[2020-12-28 12:53] VITALS: RESP 18
[2020-12-28 14:13] VITALS: BP 128/62; PULSE 60; TEMP 97.5
== END 2020-12-28 15:25 | disposition home or self-care (01) ==
LOC: EC 12:41 → 6NMEDSUR 15:34
PROVIDERS: ADMIT Urology; ATTEND Urology
DX: N13.2 Hydronephrosis with renal and ureteral calculous obstruction (principal); Q63.2 Ectopic kidney; K57.30 Diverticulosis of large intestine without perforation or abscess without bleeding; M51.36 Other intervertebral disc degeneration, lumbar region; M43.10 Spondylolisthesis, site unspecified; F40.240 Claustrophobia; F17.210 Nicotine dependence, cigarettes, uncomplicated; Z98.1 Arthrodesis status; Z87.442 Personal history of urinary calculi; Z87.440 Personal history of urinary (tract) infections; Z80.1 Family history of malignant neoplasm of trachea, bronchus and lung; Z81.2 Family history of tobacco abuse and dependence
CPT/HCPCS: 52356; 96376 ×2; 96361; 96374; 96375; 99285; 36415; 80053; 82150; 83690; 85025; 81001; 87086; 74176; G0378 ×2; C2625; C1769; J2250; J2710; J2405; J0690; J2001; J0696 ×2; J3010; J1170 ×2; J1885 ×2; J0330; J2704; Q9967

== ENCOUNTER 2021-01-02 17:38 | Emergency (ER) | payer OTHER ==
[2021-01-02] MEDS ORDERED: SODIUM CHLORIDE 0.9% 1,000 ML IV STA (19:25)
[2021-01-02] MEDS ORDERED: HYDROmorphone 0.5 MG/0.5 ML SYRINGE IVP STA (19:25)
[2021-01-02] MEDS ORDERED: KETOROLAC 15 MG/ML 1 ML VIAL IVP STA (19:25)
--- NOTE | 2021-01-02 19:32 | ED ---
General Adult HPI - General Chief complaint: Urogenital Stated complaint: abd pain Time Seen by Provider: 01/02/21 19:10 Source: patient Mode of arrival: ambulatory - History of Present Illness Initial comments: 65-year-old male with a past medical history of kidney stones presents for left flank and abdominal pain. Patient had ureteral stent placed last Saturday with laser lithotripsy. He had had a 13 mm stone. Patient states that since that time the pain has been worsening and he is urinating blood. He called the office and was told to come in to the emergency room if pain was persisting. Patient states he has had kidney stones and stents before but has not had pe rsistent pain like this and would like it evaluated.Patient has no other complaints at this time including shortness of breath, chest pain, abdominal pain, nausea or vomiting, headache, or visual changes. - Related Data Previous Rx's Medication Instructions Recorded Ketorolac [Toradol] 10 mg PO TID 4 Days #12 tab 01/02/21 Allergies Allergy/AdvReac Type Severity Reaction Status Date / Time No Known Allergies Allergy Verified 01/02/21 18:49 Review of Systems ROS Statement: Those systems with pertinent positive or pertinent negative responses have been documented in the HPI. ROS Other: All systems not noted in ROS Statement are negative. Past Medical History Past Medical History: Renal Disease Additional Past Medical History / Comment(s): kidney stones, herniated/slipped disk,SPONDYLOLISTHESIS, DDD, low back pain. started 04/12/16 on antibiotic for UTI-2 PILLS LEFT TO TAKE. History of Any Multi-Drug Resistant Organisms: None Reported Past Surgical History: No Surgical Hx Reported Additional Past Surgical History / Comment(s): Litotripsy, Kidney stone removal, ureter stent Past Anesthesia/Blood Transfusion Reactions: No Reported Reaction Additional Past Anesthesia/Blood Transfusion Reaction / Comment(s): clausterphobia Past Psychological History: No Psychological Hx Reported Smoking Status: Current every day smoker Past Alcohol Use History: Daily Past Drug Use History: Marijuana - Past Family History Mother Family Medical History: Cancer Additional Family Medical History / Comment(s): LUNG CANCER- SMOKER General Exam General appearance: alert Head exam: Present: atraumatic Eye exam: Present: normal appearance, PERRL, EOMI. Absent: scleral icterus, conjunctival injection ENT exam: Present: normal exam, mucous membranes moist Neck exam: Present: normal inspection, full ROM. Absent: tenderness Respiratory exam: Present: normal lung sounds bilaterally. Absent: respiratory distress, wheezes Cardiovascular Exam: Present: regular rate, normal rhythm, normal heart sounds GI/Abdominal exam: Present: soft, normal bowel sounds. Absent: distended, tenderness Back exam: Present: CVA tenderness (L) Course Vital Signs 01/02/21 18:44 Temperature 98.2 F Pulse Rate 90 Respiratory 18 Rate Blood Pressure 132/82 O2 Sat by Pulse 96 Oximetry Medical Decision Making - Medical Decision Making Vitals are stable. CBC shows minimal leukocytosis. CMP unremarkable. Urinalysis shows 26 white blood cells with 53 red blood cells. White blood cells are likely reactive to blood, no nitrites in the urine. Culture ordered. CT abdomen and pelvis was obtained that showed numerous bilateral renal calculi. Left ureteral stent in good position. Calculus at the left UPJ on previous exam appears in the lateral renal calyx hydronephrosis unchanged. Patient was given pain medication and did have significant improvement symptoms I did discuss his case with Dr. Duarte. Does not recommend and back at this time. Recommend pain management. He will see patient at his scheduled appointment on the . Patient does not want narcotics for home, will be given Toradol. - Lab Data Result diagrams: 01/02/21 19:56 01/02/21 19:56 Lab Results 01/02/21 01/02/21 01/02/21 Range/Units 19:56 19:56 19:56 WBC 10.8 H (3.8-10.6) k/uL RBC 4.66 (4.30-5.90) m/uL Hgb 15.1 (13.0-17.5) gm/dL Hct 44.7 (39.0-53.0) % MCV 96.0 (80.0-100.0) fL MCH 32.4 (25.0-35.0) pg MCHC 33.8 (31.0-37.0) g/dL RDW 13.1 (11.5-15.5) % Plt Count 158 (150-450) k/uL MPV 9.4 Neutrophils % 73 % Lymphocytes % 14 % Monocytes % 9 % Eosinophils % 3 % Basophils % 1 % Neutrophils # 7.8 H (1.3-7.7) k/uL Lymphocytes # 1.5 (1.0-4.8) k/uL Monocytes # 0.9 (0-1.0) k/uL Eosinophils # 0.3 (0-0.7) k/uL Basophils # 0.1 (0-0.2) k/uL Sodium 136 L (137-145) mmol/L Potassium 4.5 (3.5-5.1) mmol/L Chloride 108 H (98-107) mmol/L Carbon Dioxide 23 (22-30) mmol/L Anion Gap 5 mmol/L BUN 21 H (9-20) mg/dL Creatinine 1.15 (0.66-1.25) mg/dL Est GFR (CKD-EPI)AfAm 82 (>60 ml/min/1.73 sqM) Est GFR (CKD-EPI)NonAf 71 (>60 ml/min/1.73 sqM) Glucose 88 (74-99) mg/dL Calcium 10.9 H (8.4-10.2) mg/dL Total Bilirubin 0.3 (0.2-1.3) mg/dL AST 28 (17-59) U/L ALT 21 (4-49) U/L Alkaline Phosphatase 85 (38-126) U/L Total Protein 6.5 (6.3-8.2) g/dL Albumin 4.1 (3.5-5.0) g/dL Amylase 70 (30-110) U/L Lipase 115 (23-300) U/L Urine Color Light Yellow Urine Appearance Cloudy (Clear) Urine pH 7.0 (5.0-8.0) Ur Specific [place] 1.006 (1.001-1.035) Urine Protein 1+ H (Negative) Urine Glucose (UA) Negative (Negative) Urine Ketones Negative (Negative) Urine Blood Large H (Negative) Urine Nitrite Negative (Negative) Urine Bilirubin Negative (Negative) Urine Urobilinogen <2.0 (<2.0) mg/dL Ur Leukocyte Esterase Large H (Negative) Urine RBC 53 H (0-5) /hpf Urine WBC 26 H (0-5) /hpf Urine Bacteria Rare H (None) /hpf Urine Mucus Rare H (None) /hpf Disposition Clinical Impression: Flank pain Disposition: HOME SELF-CARE Condition: Good Instructions (If sedation given, give patient instructions): Flank Pain (ED) Additional Instructions: Please alternate Toradol and Tylenol for pain. Drink plenty of fluids. Follow- up with urology. Return to the emergency room for any worsening symptoms. Prescriptions: Ketorolac [Toradol] 10 mg PO TID 4 Days #12 tab Is patient prescribed a controlled substance at d/c from ED?: No Referrals: Jorge Trejo III, MD [Primary Care Provider] - 1-2 days Henok Duarte MD [STAFF PHYSICIAN] - 1-2 days Time of Disposition: 21:21
[2021-01-02 20:23] LABS: Albumin 4.1 g/dL (3.5-5.0); Calcium 10.9 mg/dL (8.4-10.2); Potassium 4.5 mmol/L (3.5-5.1); Total Bilirubin 0.3 mg/dL (0.2-1.3); Total Protein 6.5 g/dL (6.3-8.2)
[2021-01-02 20:28] LABS: Appearance,Urine Cloudy (Clear); Bacteria,Urine Rare /hpf; Basophils # (A) 0.1 k/uL (0-0.2); Basophils % (A) 1 %; Bilirubin,Urine Negative (Negative); Blood,Urine Large (Negative); Color,Urine Light Yellow; Eosinophils # (A) 0.3 k/uL (0-0.7); Eosinophils % (A) 3 %; Glucose,Urine (UA) Negative (Negative); HCT 44.7 % (39.0-53.0); HGB 15.1 gm/dL (13.0-17.5); Ketones,Urine Negative (Negative); Leukocyte Esterase,Urine Large (Negative); Lymphocytes # (A) 1.5 k/uL (1.0-4.8); Lymphocytes % (A) 14 %; MCH 32.4 pg (25.0-35.0); MCHC 33.8 g/dL (31.0-37.0); Mean Platelet Volume 9.4; Monocytes # (A) 0.9 k/uL (0-1.0); Monocytes % (A) 9 %; Mucus,Urine Rare /hpf; Neutrophils # (A) 7.8 k/uL (1.3-7.7); Neutrophils % (A) 73 %; Nitrite,Urine Negative (Negative); Platelet Count 158 k/uL (150-450); Protein,Urine 1+ (Negative); RBC 4.66 m/uL (4.30-5.90); RBC,Urine 53 /hpf (0-5); RDW 13.1 % (11.5-15.5); Specific Gravity,Urine 1.006 (1.001-1.035); Urobilinogen,Urine <2.0 mg/dL (<2.0); WBC 10.8 k/uL (3.8-10.6); WBC,Urine 26 /hpf (0-5)
--- NOTE | 2021-01-02 20:29 | CT ---
EXAMINATION TYPE: CT abdomen pelvis wo con DATE OF EXAM: 01/02/2021 COMPARISON: 12/27/2020 HISTORY: left flank pain, hematuia post ureteral stent placed CT DLP: 772.9 mGycm Automated exposure control for dose reduction was used. Images obtained from the diaphragm to the floor the pelvis without contrast. Lung bases are clear. There is no pleural effusion. There is some mild subsegmental atelectasis at th e lung bases. Heart size is normal. There is no pericardial effusion. Liver spleen stomach pancreas gallbladder appear normal. The bile ducts are not dilated. There is no adrenal mass. There is moderate left-sided hydronephrosis. There is left side ureteral st ent that appears in good position. Urinary bladder is intact. There are multiple bilateral renal calc bert that measure up to 1 cm. There is no hydronephrosis on the right side. Appendix appears normal. There is no mesenteric edema. There is no ascites or free air. There is no bowel obstruction. There a re multiple sigmoid diverticula. There is no diverticulitis. I see no pelvic mass. There is no inguin al hernia. There is posterior fusion surgery at L4-5 and L5-S1 with metal artifact. There is mild ant erior subluxation of L5 in relation S1. There is intact bony pelvis. IMPRESSION: Numerous bilateral renal calculi. Left ureteral stent in good position. Calculus at the left ureteral pelvic junction on previous exam appears to be in the lateral renal calyx. Hydronephrosis unchanged. Sigmoid diverticulosis.
[2021-01-02 21:36] VITALS: BP 118/77; PULSE 66; RESP 20; TEMP 97.9
== END 2021-01-02 21:36 | disposition home or self-care (01) ==
LOC: EC 17:38
DX: N13.2 Hydronephrosis with renal and ureteral calculous obstruction (principal); D72.829 Elevated white blood cell count, unspecified; F17.200 Nicotine dependence, unspecified, uncomplicated
CPT/HCPCS: 36415; 80053; 82150; 83690; 85025; 81001; 87086; 74176; 99284; 96374; 96375; 96361; J1885; J1170

== ENCOUNTER → 2021-01-23 | Outpatient (CLI) | payer OTHER ==
--- NOTE | 2021-01-23 12:05 | XR ---
EXAMINATION TYPE: XR KUB DATE OF EXAM: 01/23/2021 HISTORY: Pain Comparison: 05/26/2019 Single KUB is submitted for interpretation. Findings: Right renal calculi: 3 calculi noted measuring up to 5 mm. Right ureteral calculi: None Visualized. Left renal calculi: None Visualized. Left ureteral calculi: None Visualized. Pelvic calcifications: Multiple calcifications overlie the region of the prostate gland. Bowel gas pattern is unremarkable. No free air. No mass effects. IMPRESSION: 1. As above
== END | disposition home or self-care (01) ==
LOC: RADXRMAIN 11:22
PROVIDERS: ATTEND Urology
DX: N20.0 Calculus of kidney (principal)
CPT/HCPCS: 74018

== ENCOUNTER → 2021-02-06 | Outpatient (CLI) | payer OTHER ==
[2021-02-06 08:44] LABS: Basophils # (A) 0.1 k/uL (0-0.2); Basophils % (A) 1 %; Eosinophils # (A) 0.2 k/uL (0-0.7); Eosinophils % (A) 3 %; HCT 49.2 % (39.0-53.0); HGB 15.7 gm/dL (13.0-17.5); Lymphocytes # (A) 0.9 k/uL (1.0-4.8); Lymphocytes % (A) 14 %; Mean Platelet Volume 9.4; Monocytes # (A) 0.5 k/uL (0-1.0); Monocytes % (A) 7 %; Neutrophils # (A) 4.7 k/uL (1.3-7.7); Neutrophils % (A) 74 %; Platelet Count 130 k/uL (150-450); RBC 5.07 m/uL (4.30-5.90); RDW 12.4 % (11.5-15.5); WBC 6.3 k/uL (3.8-10.6)
[2021-02-06 08:52] LABS: Calcium 10.2 mg/dL (8.4-10.2); Potassium 4.6 mmol/L (3.5-5.1)
[2021-02-06 10:08] LABS: Appearance,Urine Clear (Clear); Bilirubin,Urine Negative (Negative); Blood,Urine Negative (Negative); Color,Urine Yellow; Glucose,Urine (UA) Trace (Negative); Ketones,Urine Negative (Negative); Leukocyte Esterase,Urine Small (Negative); Mucus,Urine Rare /hpf; Nitrite,Urine Negative (Negative); PH, Urine 6.5 (5.0-8.0); Protein,Urine Negative (Negative); RBC,Urine 4 /hpf (0-5); Specific Gravity,Urine 1.011 (1.001-1.035); Urobilinogen,Urine <2.0 mg/dL (<2.0); WBC,Urine 2 /hpf (0-5)
== END | disposition home or self-care (01) ==
LOC: PAT 08:08
PROVIDERS: ATTEND Urology
DX: Z01.812 Encounter for preprocedural laboratory examination (principal); N20.0 Calculus of kidney
CPT/HCPCS: 36415; 80048; 81001; 85025; 87086

== ENCOUNTER 2021-02-13 09:59 | Observation (INO) | payer OTHER ==
[2021-02-09 15:29] VITALS: BMI 27.8
--- NOTE | 2021-02-12 15:41 | P.GSHP ---
History of Present Illness H&P Date: 02/12/21 55 yo male with a history of stones He lindsey post eswl a large volume of fragments that he cant pass and is causing him pain. We discussed treament options and have chosen to proceed with PCNL right. the risks and complications including pain, hematuria injury to kidney and or adjacent organs, loss of kidney, infection with sepsis among others have been explained understood and accepted by the patient - Constitutional Constitutional: Denies chills, Denies fever - EENT Eyes: denies blurred vision, denies pain Ears, nose, mouth and throat: Denies headache, Denies sore throat - Cardiovascular Cardiovascular: Denies chest pain, Denies shortness of breath - Respiratory Respiratory: Denies cough, Denies 7 - Gastrointestinal Gastrointestinal: Denies abdominal pain, Denies diarrhea, Denies nausea, Denies vomiting - Genitourinary (Female) Genitourinary: Denies dysuria, Denies hematuria - Genitourinary (Male) Genitourinary: Denies dysuria, Denies hematuria - Musculoskeletal Musculoskeletal: Denies myalgias - Integumentary Integumentary: Denies pruritus, Denies rash - Neurological Neurological: Denies numbness, Denies weakness - Psychiatric Psychiatric: Denies anxiety, Denies depression - Endocrine Endocrine: Denies fatigue, Denies weight change Past Medical History Past Medical History: Hearing Disorder / Deafness, Renal Disease Additional Past Medical History / Comment(s): Current right kidney stones, hx kidney stones. Hard of hearing right ear. History of Any Multi-Drug Resistant Organisms: None Reported Past Surgical History: Back Surgery Additional Past Surgical History / Comment(s): Lithotripsy, kidney stone removal, ureter stent, 2 rods and 6 screws in back(2016), right arm infection with incision and drainage. Past Anesthesia/Blood Transfusion Reactions: Previous Problems w/ Anesthesia Additional Past Anesthesia/Blood Transfusion Reaction / Comment(s): Clausterphobia. "Every muscle in my body aches after having anesthesia starting the day after surgery and lasts a few days". Past Psychological History: No Psychological Hx Reported Smoking Status: Current every day smoker Past Alcohol Use History: Occasional Additional Past Alcohol Use History / Comment(s): Started smoking about age 37 or 38, smokes 1 PPD. Past Drug Use History: Marijuana Additional Drug Use History / Comment(s): Occasional Marijuana use. Aware no use 24 hrs prior to procedure. - Past Family History Mother Family Medical History: Cancer Additional Family Medical History / Comment(s): LUNG CANCER- SMOKER. Medications and Allergies Home Medications Medication Instructions Recorded Confirmed Type No Known Home Medications 02/09/21 02/09/21 History Allergies Allergy/AdvReac Type Severity Reaction Status Date / Time No Known Allergies Allergy Verified 02/09/21 15:08 Surgical - Exam - General well developed, well nourished, no distress - Eyes PERRL - ENT no hearing loss - Neck trachea midline - Respiratory normal expansion, normal respiratory effort - Cardiovascular Rhythm: regular - Abdomen Abdomen: soft, non tender - Genitourinary normal penis with no external lesions, testicles present - Integumentary no rash, no growths - Neurologic normal coordination, normal sensation - Musculoskeletal normal gait, normal posture - Psychiatric oriented to time, oriented to person, oriented to place, speech is normal, memory intact Results - Imaging CT scan - abdomen: report reviewed, image reviewed CT scan - pelvis: report reviewed, image reviewed Assessment and Plan Assessment: Impression: right renal stones Plan: right pcnl
[~2021-02-13 09:59] MED LIST changes: -DEXAMETHASONE SOD PHOSPHATE 10 MG/ML 1 ML VIAL IV ONE; +DEXAMETHASONE SOD PHOSPHATE 4 MG/ML 1 ML VIAL IV ONE; +LIDOCAINE 1% (10MG/ML) FOR IV START INTRADERMA PRN; -LIDOCAINE 1% 20 ML VIAL (10MG/ML) FOR IV START INTRADERMA PRN; -MIDAZOLAM 2 MG/2 ML VIAL IV PRN; -SCOPOLAMINE 1.5MG/72HR PATCH TRANSDERM ONE
--- NOTE | 2021-02-13 10:27 | XR ---
EXAMINATION TYPE: XR KUB DATE OF EXAM: 02/13/2021 Comparison: 01/23/2021 Clinical History: 55-year-old male Right kidney stone Findings: Right-sided renal calculi are redemonstrated measuring up to 9 mm. Calcification in the right side of the pelvis measures 4 mm and is unchanged suggesting a pelvic phlebolith. Central prosthetic calcifi cations are noted. Posterior lumbosacral fusion hardware. None dilated small bowel loops. Supine imaging limited for assessment of free air. No significant sto ol burden. Impression: Redemonstrated right-sided nephrolithiasis measuring up to 9 mm. A 4 mm phlebolith in the right side of the pelvis is unchanged as are benign prostatic calcifications.
[2021-02-13] MEDS: LACTATED RINGERS 1,000 ML IV SCH (10:50)
[2021-02-13] MEDS ORDERED: MIDAZOLAM 2 MG/2 ML VIAL ONE (11:55)
[2021-02-13] MEDS ORDERED: LIDOCAINE 1% INJ 10MG/ML (20 ML MDV) ONE (11:55)
[2021-02-13] MEDS ORDERED: NEOSTIGMINE 1 MG/ML 10 ML VIAL ONE (11:55)
[2021-02-13] MEDS ORDERED: fentaNYL (PF) 50 MCG/ML 2 ML AMP ONE (11:55)
[2021-02-13] MEDS ORDERED: PROPOFOL 10 MG/ML 20 ML VIAL IV ONE (11:55)
[2021-02-13] MEDS ORDERED: ROCURONIUM 10 MG/ML (5 ML VIAL) IV ONE (11:55)
[2021-02-13] MEDS ORDERED: GLYCOPYRROLATE 0.2 MG/ML 2 ML VIAL ONE (11:55)
[2021-02-13] MEDS ORDERED: IOPAMIDOL-370 50ML BTL MISCELLANE ONE (12:00)
[2021-02-13] MEDS ORDERED: NALOXONE 0.4 MG/ML 1 ML VIAL IV PRN (13:42)
[2021-02-13] MEDS ORDERED: KETOROLAC 15 MG/ML 1 ML VIAL IVP PRN (13:42)
[2021-02-13] MEDS ORDERED: ONDANSETRON 4 MG/2 ML VIAL IVP PRN (13:44)
[2021-02-13] MEDS ORDERED: MAG HYDROX/AL HYDROX/SIMETH 30 ML CUP PO PRN (13:44)
[2021-02-13] MEDS ORDERED: ACETAMINOPHEN TAB 325 MG TAB PO PRN (13:44)
[2021-02-13] MEDS: HYDROmorphone 0.5 MG/0.5 ML SYRINGE IVP PRN ×5 (13:49→14:48)
--- NOTE | 2021-02-13 13:49 | P.OP ---
Date of Procedure: 02/13/21 Preoperative Diagnosis: Right renal stones Postoperative Diagnosis: Same Procedure(s) Performed: Cystoscopy, placement of occluding balloon catheter right, percutaneous nephrostomy (Dr. Mcclure) percutaneous nephrostolithotomy with laser lithotripsy, placement of 12 J nephrostomy tube Anesthesia: CHANO Surgeon: Henok Duarte Estimated Blood Loss (ml): 100 Pathology: other (Stone) Condition: stable Disposition: PACU Indications for Procedure: Patient is 55. He has kidney stone disease. He has 2-3 stones in the right lower pole calyx that are causing pain. We discussed treatment options including shockwave lithotripsy ureteroscopy or percutaneous nephrostolithotomy. The patient did not wish to have a stent or a Sampson catheter. We thus admitted to a percutaneous nephrostolithotomy to remove the 15 mm volume of stone Description of Procedure: Patient is brought to the operating suite. He is given general anesthesia on the transport gurney. He's placed in a frog position with a sterile prep and drape. Cystoscopy Foroblique lens and 21-Belarusian sheath identifies normal urethra nonobstructing prostate. The right ureteral orifice is identified and intubated with a 5-Belarusian occluding balloon catheter passed up in the renal pelvis. It is secured to a 16-Belarusian Sampson when the cystoscope removed The patient is placed in a prone position with care to airways and extremities. Dr. Mcclure of radiology performed percutaneous nephrostomy access to the right lower pole calyx with a larger stone is identified. We dilate the tract to 30- Belarusian. Introduced the rigid scope into the collecting system remove the large stones in the right lower pole calyx as well as some stones in the renal pelvis. I then tediously identify a stone in a lower pole anterior calyx that is removed using laser lithotripsy. At the end of the procedure a 12-Belarusian J nephrostomy tube was placed the patient awake and returned recovery in good condition. Blood loss is approximately 100 mL. The patient will be kept in the hospital overnight.
[2021-02-13] MEDS ORDERED: diphenhydrAMINE 50 MG/ML 1 ML VIAL ONE (14:04)
[2021-02-13] MEDS ORDERED: hydrALAZINE HCL 20 MG/ML 1 ML VIAL ONE (14:38)
[2021-02-13] MEDS ORDERED: hydrALAZINE HCL 20 MG/ML 1 ML VIAL IVP ONE (14:41)
[2021-02-13] MEDS ORDERED: HYDROmorphone 0.5 MG/0.5 ML SYRINGE IVP ONE (14:42)
--- NOTE | 2021-02-13 14:55 | FL ---
EXAMINATION TYPE: FL Perc Nephrostomy New Access DATE OF EXAM: 02/13/2021 COMPARISON: CT 01/02/2021 HISTORY: Right-sided nephrolithiasis. PROCEDURE: Maximal barrier technique was utilized, hand hygiene obtained with soap and water and alcohol-based h and rub. The skin overlying the right kidney was localized using fluoroscopy and the overlying skin prepped and draped. Skin tamra was made with a scalpel. Access was gained under fluoroscopy, followin g placement of a ureteral occlusion balloon by the referring clinician and instillation of air in the renal collecting system with a 21-gauge needle to the lower pole of the right kidney. A suitable po sterior calyx was chosen. A 0.018 inch wire was advanced. The access site was dilated , access sit e was upsized, safety wire deployed and subsequently a sheath was advanced into the renal pelvis foll owing dilation with balloon along the tract. The patient underwent nephrolithotomy by the referring c linician. The patient remained in stable condition without complication. The patient was discharge d to observation in the care of anesthesia. 3 intraoperative images document the procedure, 7 minutes 35 seconds fluoroscopy time supplied IMPRESSION: STATUS POST NEPHROSTOMY PLACEMENT FOR NEPHROLITHOTOMY WITH FLUOROSCOPIC GUIDANCE. THIS PROCEDURE PER FORMED BY THE UNDERSIGNED.
[2021-02-13] MEDS: HYDROmorphone PCA 10 MG/50 ML BAG IV PRN (15:56)
[2021-02-13] MEDS: DEXTROSE 5%-0.45% NACL 1,000 ML IV SCH ×2 (17:15→22:30)
[2021-02-14] MEDS: LACTATED RINGERS 1,000 ML IV SCH (06:06)
[2021-02-14] MEDS: DEXTROSE 5%-0.45% NACL 1,000 ML IV SCH ×2 (06:07→18:57)
--- NOTE | 2021-02-14 06:56 | P.PN ---
Subjective Progress Note Date: 02/14/21 Postoperative day from a right percutaneous nephrostolithotomy. His vital signs are stable. He had some blood that obstructed the nephrostomy tube last night requiring irrigation. Some old blood in the nephrostomy tube. We discussed discharge with irrigation at home versus observing another 24 hours. He does not feel he can irrigate the tube on his own at home up. The risk of the nephrostomy tube obstructing with blood in the next 24 hours is moderate therefore we will observe him another 24 hours in the hospital rate his vital signs are stable. He is afebrile. Objective - Vital Signs Vital signs: Vital Signs Temp 97.9 F 02/14/21 02:00 Pulse 65 02/14/21 02:00 Resp 16 02/13/21 19:01 BP 112/75 02/14/21 02:00 Pulse Ox 98 02/14/21 02:00 Intake & Output 02/13/21 02/13/21 02/14/21 06:59 18:59 06:59 Intake Total 1650 1500 Output Total 100 945 Balance 1550 555 Weight 91 kg Intake: IV 1650 Intake, IV Titration 1500 Amount Dextrose 5%-0.45% NaCl 1, 1500 000 ml @ 125 mls/hr IV . Q8H [facility] Rx#:[id number] Output: Drainage 945 Right Back 945 Estimated Blood Loss 100 Other: # Voids 1 4 # Bowel Movements 0
[2021-02-14] MEDS: HYDROmorphone PCA 10 MG/50 ML BAG IV PRN (09:14)
[2021-02-15 01:49] VITALS: RESP 16
[2021-02-15] MEDS: DEXTROSE 5%-0.45% NACL 1,000 ML IV SCH ×2 (02:08→05:35)
[2021-02-15] MEDS: HYDROmorphone PCA 10 MG/50 ML BAG IV PRN (03:55)
[2021-02-15] MEDS: LACTATED RINGERS 1,000 ML IV SCH (07:34)
[2021-02-15 07:38] VITALS: BP 126/80; PULSE 79; TEMP 98
--- NOTE | 2021-02-15 09:15 | P.DS ---
Providers Date of admission: 02/13/21 23:43 Attending physician: Henok Duarte Primary care physician: Jorge [facility] Course: The patient is 55. He has a history of kidney stones. He had a moderate amount of right lower pole stone. We discussed ureteroscopy versus shockwave versus percutaneous nephrostolithotomy. He chose percutaneous nephrostolithotomy to have the stone removed. On 02/13/2021 he underwent a successful right percutaneous nephrostolithotomy. He did relatively well postoperatively. He had too much pain to be discharged home yesterday. He is feeling much better this morning. He'll be discharged home with a nephrostomy tube. His activity is light. His diet is regular. He'll take Tylenol or Motrin for pain. Hes been given 15 mg Valium tablet to take prior to the nephrostomy tube removal in the office on Saturday. Postoperative instructions have been given. Diet is regular. Condition is good. Patient Condition at Discharge: Good Plan - Discharge Summary Discharge Rx Participant: Yes New Discharge Prescriptions: New Diazepam [Valium] 5 mg PO Q8H 1 Days #1 tab Discharge Medication List Diazepam [Valium] 5 mg PO Q8H 1 Days #1 tab 02/15/21 [Rx] Follow up Appointment(s)/Referral(s): Henok Duarte MD [STAFF PHYSICIAN] - 1 Week Activity/Diet/Wound Care/Special Instructions: Home with nephrostomy tube Discharge Disposition: HOME SELF-CARE
== END 2021-02-15 11:33 | disposition home or self-care (01) ==
LOC: OR 09:59 → 4SSUR 14:55 → OR 23:43
PROVIDERS: ADMIT Urology; ATTEND Urology
DX: N20.0 Calculus of kidney (principal); H91.91 Unspecified hearing loss, right ear; F17.210 Nicotine dependence, cigarettes, uncomplicated; M19.90 Unspecified osteoarthritis, unspecified site; Z20.822 Contact with and (suspected) exposure to COVID-19; Z87.442 Personal history of urinary calculi; Z86.19 Personal history of other infectious and parasitic diseases; Z98.1 Arthrodesis status; Z80.1 Family history of malignant neoplasm of trachea, bronchus and lung
CPT/HCPCS: 50080; 86900; 86901; 86850; 82365; 87635; 50432; 74018; G0378 ×2; C1769 ×3; C2628; C1894; C1729; J2250; J0360; J1200; J1100; J2710; J0690; J2405; J2001; J3010; J1885; J2704; J1170 ×4; Q9967

== ENCOUNTER → 2021-02-21 | Outpatient (CLI) | payer OTHER ==
[2021-02-21 20:23] LABS: Basophils # (A) 0.05 X 10*3/uL (0.00-0.10); Basophils % (A) 0.7 %; Eosinophils # (A) 0.12 X 10*3/uL (0.04-0.35); Eosinophils % (A) 1.7 %; HCT 45.2 % (39.6-50.0); HGB 14.7 g/dL (13.0-17.0); Lymphocytes # (A) 0.75 X 10*3/uL (0.90-5.00); Lymphocytes % (A) 10.8 %; MCH 30.6 pg (27.0-32.0); MCHC 32.5 g/dL (32.0-37.0); Monocytes # (A) 1.05 X 10*3/uL (0.20-1.00); Monocytes % (A) 15.1 %; Neutrophils # (A) 4.93 X 10*3/uL (1.80-7.70); Neutrophils % (A) 71.1 %; Platelet Count 178 X 10*3/uL (140-440); RBC 4.81 X 10*6/uL (4.40-5.60); RDW 12.5 % (11.5-14.5); WBC 6.94 X 10*3/uL (4.50-10.00)
[2021-02-22 09:13] LABS: African American GFR (CKD) 81.1 (60.0-200.0); Albumin 4.4 g/dL (3.8-4.9); Albumin/Globulin Ratio 2.01 (1.60-3.17); Anion Gap 13.8 mmol/L (4.00-12.00); BUN/Creat Ratio 13.79 Ratio (12.00-20.00); Calcium 10.5 mg/dL (8.7-10.3); Carbon Dioxide 18.6 mmol/L (21.6-31.8); Globulin 2.2 g/dL (1.6-3.3); Potassium 4.7 mmol/L (3.5-5.5); Total Bilirubin 0.2 mg/dL (0.30-1.20); Total Protein 6.6 g/dL (6.2-8.2)
== END | disposition home or self-care (01) ==
LOC: LABWHC1 10:17
PROVIDERS: ATTEND Family Medicine
DX: N20.0 Calculus of kidney (principal)
CPT/HCPCS: 36415; 80053; 82306; 83970; 85025

== ENCOUNTER 2021-10-11 07:55 | Day surgery (SDC) | payer OTHER ==
[2021-10-06 12:53] VITALS: BMI 27.8
[~2021-10-11 07:55] MED LIST changes: -DEXAMETHASONE SOD PHOSPHATE 4 MG/ML 1 ML VIAL IV ONE; +LACTATED RINGERS 1,000 ML IV SCH; -ONDANSETRON 4 MG/2 ML VIAL IVP ONE
[2021-10-11 08:36] VITALS: RESP 18; TEMP 97.4
[2021-10-11] MEDS ORDERED: PROPOFOL 10 MG/ML 20 ML VIAL IV ONE (09:16)
--- NOTE | 2021-10-11 09:30 | P.PCN ---
Date of Procedure: 10/11/21 Procedure(s) Performed: BRIEF HISTORY: Patient is a 49-year-old pleasant white male scheduled for an elective colonoscopy as a part of screening for colorectal neoplasia. PROCEDURE PERFORMED: Colonoscopy with snare polypectomy and cold biopsy. PREOPERATIVE DIAGNOSIS: Screening for colon cancer. IV sedation per Anesthesia. PROCEDURE: After informed consent was obtained, the patient, was brought into the endoscopy unit. IV sedation was administered by Anesthesia under continuous monitoring. Digital rectal examination was normal. Initially the Olympus CF-160 flexible video colonoscope was then inserted in the rectum, gradually advanced into the cecum without any difficulty. Careful examination was performed as the scope was gradually being withdrawn. Ileocecal valve and the appendiceal orifice were visualized and appeared normal. Prep was excellent. Mucosa of the cecum, ascending colon, appeared normal. In the hepatic flexure there was a 7 mm sessile polyp removed by snare polypectomy. In the transverse colon there was a 3 mm polyp removed by cold biopsy. Rest of the transverse colon, descending colon, appeared normal. The sigmoid colon there was a 5 limited polyp removed by snare polypectomy. Scattered sigmoid diverticulosis seen. Rest of the sigmoid colon, and rectum appeared normal. Retroflexion was performed in the rectum and no lesions were seen. The patient tolerated the procedure well. IMPRESSION: 3 mm transverse colon polyp status post cold biopsy 7 mm hepatic flexure polyp status post polypectomy 5 mm sigmoid polyp status post snare polypectomy Scattered sigmoid diverticulosis RECOMMENDATIONS: Findings of this examination were discussed with the patient as well as his family. He was advised to follow with the biopsy results. If the biopsy reveals adenoma he can have a repeat colonoscopy in 3 years.
[2021-10-11 09:56] VITALS: BP 126/92; PULSE 79
== END 2021-10-11 10:01 | disposition home or self-care (01) ==
LOC: ORWHC2ENDO 07:55
PROVIDERS: ATTEND Internal Medicine Gastroenterology
DX: Z12.11 Encounter for screening for malignant neoplasm of colon (principal); K57.30 Diverticulosis of large intestine without perforation or abscess without bleeding; D12.5 Benign neoplasm of sigmoid colon; D12.3 Benign neoplasm of transverse colon
CPT/HCPCS: 45380; 45385; 88305; J2704

== ENCOUNTER 2021-11-07 10:25 | Inpatient (IN) | payer OTHER ==
[2021-11-07] MEDS ORDERED: SODIUM CHLORIDE 0.9% 1,000 ML IV STA (12:04)
[2021-11-07] MEDS ORDERED: KETOROLAC 15 MG/ML 1 ML VIAL IVP STA (12:15)
[2021-11-07] MEDS ORDERED: HYDROmorphone 1 MG/ML 1 ML SYRINGE IVP STA ×2 (12:15→13:22)
[2021-11-07 12:52] LABS: Basophils # (A) 0.1 k/uL (0-0.2); Basophils % (A) 0 %; Eosinophils # (A) 0.1 k/uL (0-0.7); Eosinophils % (A) 1 %; HCT 48.4 % (39.0-53.0); HGB 16.3 gm/dL (13.0-17.5); Lymphocytes # (A) 0.7 k/uL (1.0-4.8); Lymphocytes % (A) 5 %; MCH 32.7 pg (25.0-35.0); MCHC 33.8 g/dL (31.0-37.0); MCV 96.8 fL (80.0-100.0); Mean Platelet Volume 9.5; Monocytes # (A) 0.8 k/uL (0-1.0); Monocytes % (A) 6 %; Neutrophils # (A) 11.9 k/uL (1.3-7.7); Neutrophils % (A) 86 %; Platelet Count 152 k/uL (150-450); RDW 12.8 % (11.5-15.5); WBC 13.8 k/uL (3.8-10.6)
--- NOTE | 2021-11-07 13:07 | CT ---
EXAMINATION TYPE: CT abdomen pelvis wo con DATE OF EXAM: 11/07/2021 COMPARISON: CT dated 01/02/2021 HISTORY: Kidney stone CT DLP: 883.5 mGycm Automated exposure control for dose reduction was used. TECHNIQUE: Helical acquisition of images was performed from the lung bases through the pelvis. FINDINGS: LUNG BASES: Bilateral basal linear pulmonary atelectasis. LIVER/GB: Bulky liver. No radiodense gallbladder calculi. PANCREAS: No significant abnormality is seen. SPLEEN: No significant abnormality is seen. ADRENALS: No significant abnormality is seen. KIDNEYS: 16 mm stone is seen in the left renal pelvis with marked dilatation of the left renal collec ting system, associated with severe left perinephric fat stranding and reactive fluid possibly due to acute obstruction however underlying calyceal rupture or infection cannot be excluded. Left nonobstr ucting renal calculi measuring up to 11 mm at the midportion of the left kidney. Smaller right nonobs tructing renal calculi measuring up to 8 mm at the lower pole. No right-sided hydroureter or hydronep hrosis. FREE AIR: No free air is visualized RETROPERITONEAL ADENOPATHY: None visualized REPRODUCTIVE ORGANS: Prostatic concretion. Unremarkable seminal vesicles. URINARY BLADDER: No significant abnormality is seen. PELVIC ADENOPATHY: None visualized. OSSEOUS STRUCTURES: Lumbosacral fixation. Grade 1 anterolisthesis of L5 over S1. BOWEL: Colonic diverticulosis without evidence of acute diverticulitis. OTHER: Arterial atherosclerotic calcifications. Left fat-containing inguinal hernia. IMPRESSION: Marked dilatation of the left renal collecting system likely secondary to a 16 mm obstructing stone i n the left renal pelvis as described above. Other bilateral nonobstructing renal calculi. Severe left perinephric fat stranding and reactive fluid, possibly secondary to obstruction however a ssociated infection or underlying calyceal rupture can't be excluded, for clinical correlation and co rrelation with urine analysis results. Further urology consultation can be considered. Other findings as described above.
[2021-11-07 13:17] LABS: Albumin 4.3 g/dL (3.5-5.0); Calcium 10.7 mg/dL (8.4-10.2); Potassium 4.3 mmol/L (3.5-5.1); Total Bilirubin 0.4 mg/dL (0.2-1.3); Total Protein 6.8 g/dL (6.3-8.2)
[2021-11-07 14:26] LABS: Appearance,Urine Cloudy (Clear); Bilirubin,Urine Negative (Negative); Blood,Urine Moderate (Negative); Color,Urine Yellow; Glucose,Urine (UA) Negative (Negative); Ketones,Urine Trace (Negative); Leukocyte Esterase,Urine Large (Negative); Mucus,Urine Rare /hpf; Nitrite,Urine Negative (Negative); Protein,Urine Trace (Negative); RBC,Urine 71 /hpf (0-5); Specific Gravity,Urine 1.016 (1.001-1.035); Squamous Epithelial Cell,Urine 1 /hpf (0-4); Urobilinogen,Urine <2.0 mg/dL (<2.0); WBC,Urine 126 /hpf (0-5)
[2021-11-07] MEDS ORDERED: NALOXONE 0.4 MG/ML 1 ML VIAL IV PRN (15:51)
--- NOTE | 2021-11-07 15:51 | ED ---
Abdominal Pain HPI - General Chief Complaint: Abdominal Pain Stated Complaint: Kidney stone Time Seen by Provider: 11/07/21 11:49 Source: patient Mode of arrival: ambulatory Limitations: no limitations - History of Present Illness Initial Comments: 36-year-old male with past medical history of kidney stones presents emergency Department with left-sided flank pain. States it started around 5:00 this morning. He has had pain similar nature several times before. Pain radiates around to the anterior abdomen and into his groin. He states he normally passes kidney stones within a few hours however this pain has persisted. He has had previous stent placement as well as ESWL. Follows with Dr. Duarte. Admits to hematuria. No nausea or vomiting. No other alleviating, precipitating or modifying factors - Related Data Home Medications Medication Instructions Recorded Confirmed Cholecalciferol [Vitamin D3 (25 50 mcg PO DAILY 10/06/21 11/10/21 Mcg = 1000 Iu)] Allergies Allergy/AdvReac Type Severity Reaction Status Date / Time No Known Allergies Allergy Verified 11/10/21 16:40 Review of Systems ROS Statement: Those systems with pertinent positive or pertinent negative responses have been documented in the HPI. ROS Other: All systems not noted in ROS Statement are negative. Past Medical History Past Medical History: Renal Disease Additional Past Medical History / Comment(s): kidney stones, herniated/slipped disk,SPONDYLOLISTHESIS, DDD, low back pain. History of Any Multi-Drug Resistant Organisms: None Reported Past Surgical History: Back Surgery Additional Past Surgical History / Comment(s): Lithotripsy, Kidney stone removal, ureter stent, COLONOSCOPY Past Anesthesia/Blood Transfusion Reactions: No Reported Reaction Additional Past Anesthesia/Blood Transfusion Reaction / Comment(s): claustrophobia Past Psychological History: No Psychological Hx Reported Smoking Status: Current every day smoker - Past Family History Mother Family Medical History: Cancer Additional Family Medical History / Comment(s): LUNG CANCER- SMOKER. General Exam Limitations: no limitations General appearance: alert, in distress Head exam: Present: atraumatic, normocephalic, normal inspection Eye exam: Present: normal appearance, PERRL, EOMI. Absent: scleral icterus, conjunctival injection, periorbital swelling ENT exam: Present: normal exam, mucous membranes moist Neck exam: Present: normal inspection. Absent: tenderness, meningismus, lymphadenopathy Respiratory exam: Present: normal lung sounds bilaterally. Absent: respiratory distress, wheezes, rales, rhonchi, stridor Cardiovascular Exam: Present: regular rate, normal rhythm, normal heart sounds. Absent: systolic murmur, diastolic murmur, rubs, gallop, clicks GI/Abdominal exam: Present: soft, normal bowel sounds. Absent: distended, tenderness, guarding, rebound, rigid Extremities exam: Present: normal inspection, full ROM, normal capillary refill. Absent: tenderness, pedal edema, joint swelling, calf tenderness Back exam: Present: normal inspection Neurological exam: Present: alert, oriented X3, CN II-XII intact Psychiatric exam: Present: normal affect, normal mood Skin exam: Present: warm, dry, intact, normal color. Absent: rash Course Vital Signs 11/07/21 11/07/21 11/07/21 10:44 12:49 20:00 Temperature 97.9 F 97.7 F Pulse Rate 77 65 Pulse Rate [ 90 Pulse Oximetery ] Respiratory 22 20 16 Rate Blood Pressure 168/99 160/106 Blood Pressure 160/99 [Left Arm] O2 Sat by Pulse 97 98 95 Oximetry 11/08/21 11/08/21 11/08/21 02:00 08:18 13:43 Temperature 97.8 F 97.0 F L 97.8 F Pulse Rate Pulse Rate [ 79 81 77 Pulse Oximetery ] Respiratory 16 18 14 Rate Blood Pressure Blood Pressure 148/100 151/98 146/95 [Left Arm] O2 Sat by Pulse 96 98 95 Oximetry Medical Decision Making - Medical Decision Making Upon arrival the patient's placed into room 8. Thorough history and physical exam is performed. IV access established the patient is given Dilaudid and Toradol for pain control [place] are reviewed demonstrated white count of 13.8. Creatinine 1.3. Urinalysis demonstrates trace ketones with moderate blood. No bacteria. CT of the patient's abdomen and pelvis demonstrates a large left-sided stone is seen within the left renal pelvis measuring 16 mm. Marked dilation of the left renal collecting system with severe left perinephric fat stranding. I discussed the results with Dr. Duarte. Patient was given a second dose of pain meds without improvement. Patient will be admitted for intractable pain to Dr. Duarte - Lab Data Result diagrams: 11/09/21 09:59 11/08/21 08:06 Lab Results 11/07/21 11/07/21 11/07/21 Range/Units 12:20 12:20 12:20 WBC 13.8 H (3.8-10.6) k/uL RBC 5.00 (4.30-5.90) m/uL Hgb 16.3 (13.0-17.5) gm/dL Hct 48.4 (39.0-53.0) % MCV 96.8 (80.0-100.0) fL MCH 32.7 (25.0-35.0) pg MCHC 33.8 (31.0-37.0) g/dL RDW 12.8 (11.5-15.5) % Plt Count 152 (150-450) k/uL MPV 9.5 Neutrophils % 86 % Lymphocytes % 5 % Monocytes % 6 % Eosinophils % 1 % Basophils % 0 % Neutrophils # 11.9 H (1.3-7.7) k/uL Lymphocytes # 0.7 L (1.0-4.8) k/uL Monocytes # 0.8 (0-1.0) k/uL Eosinophils # 0.1 (0-0.7) k/uL Basophils # 0.1 (0-0.2) k/uL Sodium 137 (137-145) mmol/L Potassium 4.3 (3.5-5.1) mmol/L Chloride 109 H (98-107) mmol/L Carbon Dioxide 23 (22-30) mmol/L Anion Gap 5 mmol/L BUN 21 H (9-20) mg/dL Creatinine 1.34 H (0.66-1.25) mg/dL Est GFR (CKD-EPI)AfAm 68 (>60 ml/min/1.73 sqM) Est GFR (CKD-EPI)NonAf 59 (>60 ml/min/1.73 sqM) Glucose 104 H (74-99) mg/dL Plasma Lactic Acid [place] (0.7-2.0) mmol/L Calcium 10.7 H (8.4-10.2) mg/dL Total Bilirubin 0.4 (0.2-1.3) mg/dL AST 31 (17-59) U/L ALT 29 (4-49) U/L Alkaline Phosphatase 93 (38-126) U/L Total Protein 6.8 (6.3-8.2) g/dL Albumin 4.3 (3.5-5.0) g/dL Lipase 68 (23-300) U/L Urine Color Yellow Urine Appearance Cloudy (Clear) Urine pH 6.0 (5.0-8.0) Ur Specific [place] 1.016 (1.001-1.035) Urine Protein Trace H (Negative) Urine Glucose (UA) Negative (Negative) Urine Ketones Trace H (Negative) Urine Blood Moderate H (Negative) Urine Nitrite Negative (Negative) Urine Bilirubin Negative (Negative) Urine Urobilinogen <2.0 (<2.0) mg/dL Ur Leukocyte Esterase Large H (Negative) Urine RBC 71 H (0-5) /hpf Urine WBC 126 H (0-5) /hpf Ur Squamous Epith Cells 1 (0-4) /hpf Urine Mucus Rare H (None) /hpf 11/07/21 Range/Units 12:20 WBC (3.8-10.6) k/uL RBC (4.30-5.90) m/uL Hgb (13.0-17.5) gm/dL Hct (39.0-53.0) % MCV (80.0-100.0) fL MCH (25.0-35.0) pg MCHC (31.0-37.0) g/dL RDW (11.5-15.5) % Plt Count (150-450) k/uL MPV Neutrophils % % Lymphocytes % % Monocytes % % Eosinophils % % Basophils % % Neutrophils # (1.3-7.7) k/uL Lymphocytes # (1.0-4.8) k/uL Monocytes # (0-1.0) k/uL Eosinophils # (0-0.7) k/uL Basophils # (0-0.2) k/uL Sodium (137-145) mmol/L Potassium (3.5-5.1) mmol/L Chloride (98-107) mmol/L Carbon Dioxide (22-30) mmol/L Anion Gap mmol/L BUN (9-20) mg/dL Creatinine (0.66-1.25) mg/dL Est GFR (CKD-EPI)AfAm (>60 ml/min/1.73 sqM) Est GFR (CKD-EPI)NonAf (>60 ml/min/1.73 sqM) Glucose (74-99) mg/dL Plasma Lactic Acid [place] 0.9 (0.7-2.0) mmol/L Calcium (8.4-10.2) mg/dL Total Bilirubin (0.2-1.3) mg/dL AST (17-59) U/L ALT (4-49) U/L Alkaline Phosphatase (38-126) U/L Total Protein (6.3-8.2) g/dL Albumin (3.5-5.0) g/dL Lipase (23-300) U/L Urine Color Urine Appearance (Clear) Urine pH (5.0-8.0) Ur Specific [place] (1.001-1.035) Urine Protein (Negative) Urine Glucose (UA) (Negative) Urine Ketones (Negative) Urine Blood (Negative) Urine Nitrite (Negative) Urine Bilirubin (Negative) Urine Urobilinogen (<2.0) mg/dL Ur Leukocyte Esterase (Negative) Urine RBC (0-5) /hpf Urine WBC (0-5) /hpf Ur Squamous Epith Cells (0-4) /hpf Urine Mucus (None) /hpf Disposition Clinical Impression: Flank pain, Renal calculus, Hydronephrosis Disposition: ADMITTED IP TO THIS [facility] Condition: Stable Is patient prescribed a controlled substance at d/c from ED?: No Time of Disposition: 15:51 Decision to Admit Reason: Admit from EC Decision Date: 11/07/21 Decision Time: 15:51
[2021-11-07] MEDS ORDERED: ONDANSETRON 4 MG/2 ML VIAL IVP PRN (15:59)
[2021-11-07] MEDS: HYDROmorphone 1 MG/ML 1 ML SYRINGE IVP PRN ×3 (16:28→22:48)
[2021-11-07] MEDS: SODIUM CHLORIDE 0.9% 1,000 ML IV SCH ×3 (16:29→21:14)
[2021-11-07] MEDS: KETOROLAC 15 MG/ML 1 ML VIAL IVP PRN (21:09)
[2021-11-08] MEDS: HYDROmorphone 1 MG/ML 1 ML SYRINGE IVP PRN ×7 (01:46→22:31)
[2021-11-08] MEDS: KETOROLAC 15 MG/ML 1 ML VIAL IVP PRN ×3 (03:49→22:32)
--- NOTE | 2021-11-08 07:40 | P.GSHP ---
History of Present Illness H&P Date: 11/07/21 56 yo male known to me for stones. He has had previous right ureeteroscopy[katharine], pcnl right [lisandro] who presents with left sided flank pain. he has a chronicn left upj obstruction. When he was last imaged in mar 2021 there was a llp stone about 8-9mm. He presents with a new 16 mm left upj stone as well an 11 mm llp stone. te pain has brought him to the hospital. He will be admitted for pain control and further discussion of treatment options. - Constitutional Constitutional: Denies chills, Denies fever - EENT Eyes: denies blurred vision, denies pain Ears, nose, mouth and throat: Denies headache, Denies sore throat - Cardiovascular Cardiovascular: Denies chest pain, Denies shortness of breath - Respiratory Respiratory: Denies cough, Denies 7 - Gastrointestinal Gastrointestinal: Denies abdominal pain, Denies diarrhea, Denies nausea, Denies vomiting - Genitourinary (Female) Genitourinary: Denies dysuria, Denies hematuria - Genitourinary (Male) Genitourinary: Denies dysuria, Denies hematuria - Musculoskeletal Musculoskeletal: Denies myalgias - Integumentary Integumentary: Denies pruritus, Denies rash - Neurological Neurological: Denies numbness, Denies weakness - Psychiatric Psychiatric: Denies anxiety, Denies depression - Endocrine Endocrine: Denies fatigue, Denies weight change Past Medical History Past Medical History: Renal Disease Additional Past Medical History / Comment(s): kidney stones, herniated/slipped disk,SPONDYLOLISTHESIS, DDD, low back pain. History of Any Multi-Drug Resistant Organisms: None Reported Past Surgical History: Back Surgery Additional Past Surgical History / Comment(s): Lithotripsy, Kidney stone removal, ureter stent, COLONOSCOPY Past Anesthesia/Blood Transfusion Reactions: No Reported Reaction Additional Past Anesthesia/Blood Transfusion Reaction / Comment(s): claustrophobia Past Psychological History: No Psychological Hx Reported Smoking Status: Current every day smoker - Past Family History Mother Family Medical History: Cancer Additional Family Medical History / Comment(s): LUNG CANCER- SMOKER. Medications and Allergies Home Medications Medication Instructions Recorded Confirmed Type Cholecalciferol [Vitamin D3 (25 50 mcg PO DAILY 05/27/22 06/28/22 History Mcg = 1000 Iu)] Allergies Allergy/AdvReac Type Severity Reaction Status Date / Time No Known Allergies Allergy Verified 11/07/21 12:02 Surgical - Exam Vital Signs Temp Pulse Resp BP Pulse Ox 97.9 F 77 22 168/99 97 11/07/21 10:44 11/07/21 10:44 11/07/21 10:44 11/07/21 10:44 11/07/21 10:44 - General mild distress well developed, well nourished - Eyes PERRL - ENT no hearing loss - Neck trachea midline - Respiratory normal expansion, normal respiratory effort - Cardiovascular Rhythm: regular - Abdomen Abdomen: soft, tender - Genitourinary normal penis with no external lesions, testicles present - Integumentary no rash - Musculoskeletal normal posture - Psychiatric oriented to time, oriented to person, oriented to place, speech is normal, memory intact Results - Labs 11/07/21 12:20 11/07/21 12:20 Abnormal Lab Results - Last 24 Hours (Table) 11/07/21 11/07/21 11/07/21 Range/Units 12:20 12:20 12:20 WBC 13.8 H (3.8-10.6) k/uL Neutrophils # 11.9 H (1.3-7.7) k/uL Lymphocytes # 0.7 L (1.0-4.8) k/uL Chloride 109 H (98-107) mmol/L BUN 21 H (9-20) mg/dL Creatinine 1.34 H (0.66-1.25) mg/dL Glucose 104 H (74-99) mg/dL Calcium 10.7 H (8.4-10.2) mg/dL Urine Protein Trace H (Negative) Urine Ketones Trace H (Negative) Urine Blood Moderate H (Negative) Ur Leukocyte Esterase Large H (Negative) Urine RBC 71 H (0-5) /hpf Urine WBC 126 H (0-5) /hpf Urine Mucus Rare H (None) /hpf Diabetes panel 11/07/21 Range/Units 12:20 Sodium 137 (137-145) mmol/L Potassium 4.3 (3.5-5.1) mmol/L Chloride 109 H (98-107) mmol/L Carbon Dioxide 23 (22-30) mmol/L BUN 21 H (9-20) mg/dL Creatinine 1.34 H (0.66-1.25) mg/dL Glucose 104 H (74-99) mg/dL Calcium 10.7 H (8.4-10.2) mg/dL AST 31 (17-59) U/L ALT 29 (4-49) U/L Alkaline Phosphatase 93 (38-126) U/L Total Protein 6.8 (6.3-8.2) g/dL Albumin 4.3 (3.5-5.0) g/dL Calcium panel 11/07/21 Range/Units 12:20 Calcium 10.7 H (8.4-10.2) mg/dL Albumin 4.3 (3.5-5.0) g/dL Pituitary panel 11/07/21 Range/Units 12:20 Sodium 137 (137-145) mmol/L Potassium 4.3 (3.5-5.1) mmol/L Chloride 109 H (98-107) mmol/L Carbon Dioxide 23 (22-30) mmol/L BUN 21 H (9-20) mg/dL Creatinine 1.34 H (0.66-1.25) mg/dL Glucose 104 H (74-99) mg/dL Calcium 10.7 H (8.4-10.2) mg/dL Adrenal panel 11/07/21 Range/Units 12:20 Sodium 137 (137-145) mmol/L Potassium 4.3 (3.5-5.1) mmol/L Chloride 109 H (98-107) mmol/L Carbon Dioxide 23 (22-30) mmol/L BUN 21 H (9-20) mg/dL Creatinine 1.34 H (0.66-1.25) mg/dL Glucose 104 H (74-99) mg/dL Calcium 10.7 H (8.4-10.2) mg/dL Total Bilirubin 0.4 (0.2-1.3) mg/dL AST 31 (17-59) U/L ALT 29 (4-49) U/L Alkaline Phosphatase 93 (38-126) U/L Total Protein 6.8 (6.3-8.2) g/dL Albumin 4.3 (3.5-5.0) g/dL - Imaging CT scan - abdomen: report reviewed, image reviewed CT scan - pelvis: report reviewed, image reviewed Assessment and Plan Assessment: Impression: Left renal stones[large with obstruction, and pain. Plan: the patient has a 16 mm upj obstrucitng stone and a 12 mm llp stone. I discussed with the patient short and intermediate treatment of these stones. He d prefer a nephrostomy tube over a stent and since we will need to do a pcnl left in the near future I will have radiology place the ntube today
[2021-11-08] MEDS: SODIUM CHLORIDE 0.9% 1,000 ML IV SCH ×3 (08:13→22:32)
[2021-11-08 09:03] LABS: African American GFR (CKD) 46 (>60 ml/min/1.73 sqM); Anion Gap 7 mmol/L; Blood Urea Nitrogen 24 mg/dL (9-20); Calcium 9.6 mg/dL (8.4-10.2); Carbon Dioxide 19 mmol/L (22-30); Chloride 108 mmol/L (98-107); Glucose 92 mg/dL (74-99); Non-African American GFR(CKD) 40 (>60 ml/min/1.73 sqM); Sodium 134 mmol/L (137-145)
[2021-11-08 09:15] LABS: Potassium 4.6 mmol/L (3.5-5.1)
--- NOTE | 2021-11-08 10:40 | P.CON ---
Consult Note - . Consult date: 11/08/21 Assessment/Plan:: Procedure discussed with patient. patient refuses neph tube.
[2021-11-08 13:36] LABS: Prothrombin Time 10.4 sec (9.0-12.0)
[2021-11-09] MEDS: HYDROmorphone 1 MG/ML 1 ML SYRINGE IVP PRN ×5 (03:05→16:03)
[2021-11-09] MEDS: SODIUM CHLORIDE 0.9% 1,000 ML IV SCH ×2 (06:06→16:25)
--- NOTE | 2021-11-09 07:59 | P.PN ---
Subjective Progress Note Date: 11/09/21 in the hospital with a painful left upj stone, 16 mm. He has chronic hydro due to a upj obstruction aggravated by the stone. He will get a perc tube today and and net week he will undergo a left pcnl by myself. this has been discussed with the patient. Objective - Vital Signs Vital signs: Vital Signs Temp 98.7 F 11/09/21 04:49 Pulse 82 11/09/21 04:49 Resp 16 11/09/21 04:49 BP 144/88 11/09/21 04:49 Pulse Ox 95 11/09/21 04:49 FiO2 Intake & Output 11/08/21 11/09/21 11/09/21 18:59 06:59 18:59 Intake Total 650 Balance 650 Weight 90.718 kg Intake: Intake, IV Titration 650 Amount Sodium Chloride 0.9% 1, 650 000 ml @ 130 mls/hr IV . [id number] [facility] Rx#:[id number] Other: Voiding Method Toilet Toilet # Voids 2 3 - Labs CBC & Chem 7: 11/07/21 12:20 11/08/21 08:06 Labs: Abnormal Lab Results - Last 24 Hours (Table) 11/08/21 Range/Units 08:06 Sodium 134 L (137-145) mmol/L Chloride 108 H (98-107) mmol/L Carbon Dioxide 19 L (22-30) mmol/L BUN 24 H (9-20) mg/dL Creatinine 1.83 H (0.66-1.25) mg/dL Microbiology - Last 24 Hours (Table) 11/07/21 12:20 Urine Culture - Final Urine,Voided
[2021-11-09 10:17] LABS: Basophils # (A) 0.1 k/uL (0-0.2); Basophils % (A) 1 %; Eosinophils # (A) 0.2 k/uL (0-0.7); Eosinophils % (A) 2 %; HCT 44.2 % (39.0-53.0); HGB 14.1 gm/dL (13.0-17.5); Lymphocytes # (A) 0.7 k/uL (1.0-4.8); Lymphocytes % (A) 6 %; MCH 31.7 pg (25.0-35.0); MCV 98.9 fL (80.0-100.0); Monocytes # (A) 0.8 k/uL (0-1.0); Monocytes % (A) 8 %; Neutrophils # (A) 8.6 k/uL (1.3-7.7); Neutrophils % (A) 83 %; Platelet Count 130 k/uL (150-450); RBC 4.47 m/uL (4.30-5.90); RDW 12.3 % (11.5-15.5); WBC 10.4 k/uL (3.8-10.6)
[2021-11-09] MEDS ORDERED: HYDROmorphone 0.5 MG/0.5 ML SYRINGE IVP ONE ×2 (11:29→11:40)
[2021-11-09] MEDS ORDERED: IV FLUID CONTINUATION 1,000 ML IV ONE (11:29)
[2021-11-09] MEDS ORDERED: LIDOCAINE 1% INJ 10MG/ML (30 ML VIAL-PF) SQ ONE (11:31)
[2021-11-09] MEDS ORDERED: IOPAMIDOL-370 100ML BTL INJ ONE (11:48)
--- NOTE | 2021-11-09 12:00 | CT ---
EXAMINATION TYPE: CT Guided Neph New Access DATE OF EXAM: 11/09/2021 COMPARISON: 11/07/2021 HISTORY: CT guided neph new access. Left hydronephrosis with obstructing stones. Oral contrast used CT DLP: 220.5 mGycm The procedure is discussed with the patient, the risks, complications, benefits and alternatives, wer e discussed and any questions were answered. Informed consent was obtained. The patient is placed p sarahi on the CT table, prepped and draped in the usual sterile fashion. Utilizing a 22-gauge Chiba needle access into a midpole posterior calyx was achieved and there is rem oval approximately 10 cc of urine. A 50-50 concentration of 7 cc of contrast and saline was injected. An 0.018 guidewire was placed. Repeat imaging demonstrated placement of the guidewire throughout the renal pelvis and in ideal position. Remaining portion procedure to be performed in the CVL. All fazal ments of maximal barrier technique were utilized. The patient remained stable throughout the procedu re with no immediate postprocedural complication. IMPRESSION: 1. Successful CT guided left nephrostomy tube access.
--- NOTE | 2021-11-09 12:02 | IR ---
EXAMINATION TYPE: IR nephrostomy DATE OF EXAM: 11/09/2021 COMPARISON: NONE HISTORY: Left hydronephrosis Procedure had been discussed with the patient risks, benefits, alternatives, were discussed and any q uestions were answered. Informed consent was obtained. The patient was in a semiprone position prep ped and draped on the OR table in the usual sterile fashion. There was a pre-existing 0.018 guidewire from the procedure performed CT. there was placement of a 6-[place]izen [place] catheter sheath system. There wa s conversion to a 0.035 system was performed with passage of a guidewire into the ureter utilizing a directional catheter. Serial dilation to 8 [place] and placement of an 8.5 [place] drainage catheter. Injection of the catheter demonstrated ideal placement of the nephrostomy tube. The patient was stabl e upon completion of the exam. Approximately 1 minute of fluoroscopy was provided. 34 images submitt ed. IMPRESSION: 1. Successful left nephrostomy tube insertion.
[2021-11-09 12:14] VITALS: RESP 18; TEMP 97.8
[2021-11-09 13:48] VITALS: BP 145/88; PULSE 87
== END 2021-11-09 16:56 | disposition home or self-care (01) | DRG 694 ==
LOC: EC 10:25 → 5NMEDONC 16:01
PROVIDERS: ADMIT Urology; ATTEND Urology
PROC: 0T9130Z Drainage of Left Kidney with Drainage Device, Percutaneous Approach (ICD-10-PCS; principal; 2021-11-07)
DX: N13.2 Hydronephrosis with renal and ureteral calculous obstruction (principal); F17.200 Nicotine dependence, unspecified, uncomplicated; Z87.442 Personal history of urinary calculi; Z98.890 Other specified postprocedural states
CPT/HCPCS: 36415; 50432; 74176; 80048; 80053; 81001; 83605; 83690; 85025; 85610; 87086

== ENCOUNTER 2021-11-10 12:24 | Observation (INO) | payer OTHER ==
--- NOTE | 2021-11-10 14:10 | ED ---
General Adult HPI - General Chief complaint: Recheck/Abnormal Lab/Rx Stated complaint: tube came out of kidney Time Seen by Provider: 11/10/21 12:55 Source: patient, RN notes reviewed, old records reviewed Mode of arrival: ambulatory Limitations: no limitations - History of Present Illness Initial comments: This a 56-year-old male who presents emergency department because he had nephrostomy tube placed yesterday and he accidentally pulled most of it out today. Patient states he started to have some left CVA pain as well as a feeling of fullness in that area. Patient denies any fever chills. Patient states it happened afternoon today. Patient states he came here immediately. - Related Data Home Medications Medication Instructions Recorded Confirmed Cholecalciferol [Vitamin D3 (25 50 mcg PO DAILY 10/06/21 11/10/21 Mcg = 1000 Iu)] Allergies Allergy/AdvReac Type Severity Reaction Status Date / Time No Known Allergies Allergy Verified 11/10/21 12:53 Review of Systems ROS Statement: Those systems with pertinent positive or pertinent negative responses have been documented in the HPI. ROS Other: All systems not noted in ROS Statement are negative. Past Medical History Past Medical History: Renal Disease Additional Past Medical History / Comment(s): kidney stones, herniated/slipped disk, SPONDYLOLISTHESIS, DDD, low back pain. History of Any Multi-Drug Resistant Organisms: None Reported Past Surgical History: Back Surgery Additional Past Surgical History / Comment(s): Lithotripsy, Kidney stone removal, ureter stent, COLONOSCOPY, nephrostomy tube Past Anesthesia/Blood Transfusion Reactions: No Reported Reaction Additional Past Anesthesia/Blood Transfusion Reaction / Comment(s): claustrophobia Past Psychological History: No Psychological Hx Reported Smoking Status: Current every day smoker Past Alcohol Use History: None Reported Past Drug Use History: None Reported - Past Family History Mother Family Medical History: Cancer Additional Family Medical History / Comment(s): LUNG CANCER- SMOKER. General Exam - General Exam Comments Initial Comments: GENERAL Patient is well-developed and well-nourished. Patient is in moderate distress. EYES Patient's pupils are equal and round. Extraocular motion is intact SKIN Unremarkable NEURO The patient is alert and oriented 3 PYSCH Patient has normal interpersonal interactions. MUSCULOSKELETAL Patient has left-sided CVA tenderness Limitations: no limitations Course Vital Signs 11/10/21 12:50 Temperature 98.1 F Pulse Rate 92 Respiratory 18 Rate Blood Pressure 136/85 O2 Sat by Pulse 96 Oximetry Medical Decision Making - Medical Decision Making I spoke with radiology and neither interventional radiologist was available The nephrostomy tube was not able to be flushed and I spoke with Dr. Hima Rabago agreed to admit the patient admitted the patient to Dr. Owens per Dr. Rabago's instructions and the patient will get pain medication and will be nothing by mouth Disposition Clinical Impression: Ureteral obstruction, left Disposition: ADMITTED IP TO THIS HOSP Referrals: oJrge Trejo III, MD [Primary Care Provider] - 1-2 days Time of Disposition: 15:30
[2021-11-10] MEDS ORDERED: KETOROLAC 15 MG/ML 1 ML VIAL IM STA (14:37)
[2021-11-10] MEDS ORDERED: SODIUM CHLORIDE 0.9% 1,000 ML IV ONE (15:33)
[2021-11-10] MEDS: HYDROmorphone 0.5 MG/0.5 ML SYRINGE IVP PRN ×2 (17:13→21:29)
--- NOTE | 2021-11-10 18:23 | P.GSHP ---
History of Present Illness H&P Date: 11/10/21 Chief Complaint: Left ureteral stone This is a 56-year-old male with history of a 1.6 cm left-sided ureteral UPJ stone. He underwent left-sided nephrostomy tube placement yesterday. Left nephrostomy was partially dislodged, indicated it got caught was taken to shower Partially pulled out. Since its being pulled out its has not produced any urine he's been having progressively worsening left flank pain. Pain is associated with nausea denies any vomiting. Denies any gross hematuria or dysuria. He indicated he does have history of recurrent stones follows up with Dr. Duarte, he is currently scheduled to undergo a left-sided PCNL with Dr. Vogel of November 15 - Constitutional Constitutional: Denies chills, Denies fever - Cardiovascular Cardiovascular: Denies chest pain, Denies shortness of breath - Respiratory Respiratory: Denies cough, Denies 7 - Gastrointestinal Gastrointestinal: Denies nausea, Denies vomiting - Genitourinary (Male) Genitourinary: Reports flank pain, Reports kidney stones - Musculoskeletal Musculoskeletal: Denies myalgias - Neurological Neurological: Denies numbness, Denies weakness Past Medical History Past Medical History: Renal Disease Additional Past Medical History / Comment(s): kidney stones, herniated/slipped disk, SPONDYLOLISTHESIS, DDD, low back pain. History of Any Multi-Drug Resistant Organisms: None Reported Past Surgical History: Back Surgery Additional Past Surgical History / Comment(s): Lithotripsy, Kidney stone removal, ureter stent, COLONOSCOPY, nephrostomy tube Past Anesthesia/Blood Transfusion Reactions: No Reported Reaction Additional Past Anesthesia/Blood Transfusion Reaction / Comment(s): claustrophobia Past Psychological History: No Psychological Hx Reported Additional Psychological History / Comment(s): Pt resides with his significant other. He is independent. He uses no assistive device. He drives. 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 Smoking Status: Current every day smoker Past Alcohol Use History: None Reported Additional Past Alcohol Use History / Comment(s): Pt started smoking about age 37 or 38. He was at one time up to 2 ppd but is quitiing after this admission and is down to smoking 4-5 cig per day before this admit. Past Drug Use History: None Reported Additional Drug Use History / Comment(s): Patient states that he smokes marjuana - Past Family History Mother Family Medical History: Cancer Additional Family Medical History / Comment(s): LUNG CANCER- SMOKER. Medications and Allergies Home Medications Medication Instructions Recorded Confirmed Type Cholecalciferol [Vitamin D3 (25 50 mcg PO DAILY 10/06/21 11/10/21 History Mcg = 1000 Iu)] Allergies Allergy/AdvReac Type Severity Reaction Status Date / Time No Known Allergies Allergy Verified 11/10/21 16:40 Surgical - Exam Vital Signs Temp Pulse Resp BP Pulse Ox 98.1 F 92 18 136/85 96 11/10/21 12:50 11/10/21 12:50 11/10/21 12:50 11/10/21 12:50 11/10/21 12:50 - General no distress, severe pain - Eyes normal ocular movement, no pale - ENT normal nares, normal mucosa - Respiratory normal expansion, normal respiratory effort - Abdomen Abdomen: soft, non tender - Genitourinary Left nephrostomy tube majority of the tube is is been pulled out, no output in the bag site is clean Assessment and Plan Assessment: 56-year-old male with history of a 1.6 cm left-sided UPJ stone, accidentally pulled his the nephrostomy tube out, having significant flank pain. Scheduled for left-sided PCNL on November 15. Discussed with him given his significant pain and the nephrostomy tube being pulled out the option of ureteral stent. Of note interventional radiology is not available, to exchange nephrostomy tube. Discussed this temporary drainage until his planned PCNL.. Discussed with him the risk and benefit of the surgery in detail -We'll keep nothing by mouth -Or for left-sided stent insertion
[2021-11-10] MEDS ORDERED: HYDROmorphone (PF) 1 MG/ML ONE (18:43)
[2021-11-10] MEDS ORDERED: fentaNYL (PF) 50 MCG/ML 2 ML AMP ONE (18:43)
[2021-11-10] MEDS ORDERED: PROPOFOL 10 MG/ML 20 ML VIAL IV ONE (18:43)
[2021-11-10] MEDS ORDERED: LACTATED RINGERS 1,000 ML IV ONE (18:48)
[2021-11-10] MEDS ORDERED: SODIUM CHLORIDE 0.9% 50 ML with ceFAZolin 2,000 MG IV ONE ×2 (18:56)
[2021-11-10] MEDS ORDERED: IOHEXOL 350 MG/ML 50 ML in EMPTY BAG 1 BAG IRRIGATION ONE (19:01)
--- NOTE | 2021-11-10 19:08 | P.OP ---
Date of Procedure: 11/10/21 Preoperative Diagnosis: Left ureteral stone Postoperative Diagnosis: Same Procedure(s) Performed: Cystoscopy left stent insertion, antegrade nephrostogram Implants: 4.8 x 26 cm stent in the left ureter Anesthesia: CHANO Surgeon: Chato Reyes Estimated Blood Loss (ml): 5 Pathology: other Condition: stable Indications for Procedure: 56-year-old male with history of a 1.6 cm left-sided UPJ stone, accidentally pulled his the nephrostomy tube out, having significant flank pain. Scheduled for left-sided PCNL on November 15. Discussed with him given his significant pain and the nephrostomy tube being pulled out the option of ureteral stent. Of note interventional radiology is not available, to exchange nephrostomy tube. Discussed this temporary drainage until his planned PCNL.. Discussed with him the risk and benefit of the surgery in detail Description of Procedure: Patient brought to the operating room, general anesthesia was induced. He was prepped and draped in sterile fashion and placed in dorsal lithotomy position. Initially antegrade nephrostogram was performed through the nephrostomy tube which showed evidence of extravasation into the retroperitoneum. At this time, attention was carried to the cystoscopy, a cystoscopy fitted with 21-Korean sheath was inserted per urethra, attention was then carried to the left ureteral orifice which was intubated with a sensor wire. Next a ureteral stent was passed over the wire, the proximal curl was visualized on fluoroscopy and distal curl was visualized using the cystoscope. There was a hydronephrotic drip noticed from the stent. The bladder was emptied at the end of the case. Pa elsie tolerated the procedure was taken to recovery in stable condition
[2021-11-10] MEDS ORDERED: HYDROmorphone 0.5 MG/0.5 ML SYRINGE IVP ONE ×2 (19:31→19:37)
--- NOTE | 2021-11-10 20:21 | FL ---
Intraoperative fluoroscopic services were provided for left stent placement.. Total fluoroscopy time is 4.8 seconds a total of 1 submitted images to PACS. Please see the operative note for further marco a conroy.
[2021-11-11] MEDS: KETOROLAC 15 MG/ML 1 ML VIAL IVP SCH ×2 (00:57→05:42)
[2021-11-11] MEDS: HYDROmorphone 0.5 MG/0.5 ML SYRINGE IVP PRN ×2 (01:34→05:58)
[2021-11-11 07:35] VITALS: BP 128/86; PULSE 73; RESP 16; TEMP 98.5
--- NOTE | 2021-11-11 08:52 | P.DS ---
Providers Date of admission: 11/10/21 15:33 Attending physician: Chato Reyes MD Primary care physician: Jorge Trejo [facility] Course: This is a 56-year-old male with history of a large left-sided ureteral stone, admitted to the hospital after he dislodged nephrostomy tube. Underwent stent insertion on November 10. Pain improved on November 11, he was discharged home. At time of discharge was tolerating a diet, ambulating, pain was controlled. He will follow up on November 15 for his PCNL Plan - Discharge Summary New Discharge Prescriptions: No Action Cholecalciferol [Vitamin D3 (25 Mcg = 1000 Iu)] 50 mcg PO DAILY Discharge Medication List Cholecalciferol [Vitamin D3 (25 Mcg = 1000 Iu)] 50 mcg PO DAILY 10/06/21 [History] Follow up Appointment(s)/Referral(s): Jorge Trejo III, MD [Primary Care Provider] - 1-2 days
== END 2021-11-11 10:35 | disposition home or self-care (01) ==
LOC: EC 12:24 → 6NMEDSUR 15:33
PROVIDERS: ADMIT Urology; ATTEND Urology
DX: T83.022A Displacement of nephrostomy catheter, initial encounter (principal); N20.1 Calculus of ureter; M43.16 Spondylolisthesis, lumbar region; M51.26 Other intervertebral disc displacement, lumbar region; M51.36 Other intervertebral disc degeneration, lumbar region; Z98.890 Other specified postprocedural states; F40.240 Claustrophobia; F17.210 Nicotine dependence, cigarettes, uncomplicated; Z80.1 Family history of malignant neoplasm of trachea, bronchus and lung
CPT/HCPCS: 96372; 96374; 99284; 52332; G0378 ×2; C2625; C1769; J0690; J3010; J1170 ×3; J1885; J2704; Q9967

== ENCOUNTER 2021-11-15 08:24 | Observation (INO) | payer OTHER ==
[2021-11-10 10:03] VITALS: BMI 28.5
--- NOTE | 2021-11-14 20:45 | P.GSHP ---
History of Present Illness H&P Date: 11/14/21 56 yo male with a history of stones. He recently presented to the er witha 6mm upj stone with obstruction, 12mm llp stone and a chronic upj obstruction with chronic caliectasis.Due to the large volume of stones, a cnl was recommended. the patient preferred not to have stent. A nephrostomy tube was placed. Unfoturnately while at home the patient dislodged the tube. the invasive radiologists were absent there a stent was placed by Dr Reyes. He now comes for a pcnlL - Constitutional Constitutional: Denies chills, Denies fever - EENT Eyes: denies blurred vision, denies pain Ears, nose, mouth and throat: Denies headache, Denies sore throat - Cardiovascular Cardiovascular: Denies chest pain, Denies shortness of breath - Respiratory Respiratory: Denies cough, Denies 7 - Gastrointestinal Gastrointestinal: Denies abdominal pain, Denies diarrhea, Denies nausea, Denies vomiting - Genitourinary (Female) Genitourinary: Denies dysuria, Denies hematuria - Genitourinary (Male) Genitourinary: Denies dysuria, Denies hematuria - Musculoskeletal Musculoskeletal: Denies myalgias - Integumentary Integumentary: Denies pruritus, Denies rash - Neurological Neurological: Denies numbness, Denies weakness - Psychiatric Psychiatric: Denies anxiety, Denies depression - Endocrine Endocrine: Denies fatigue, Denies weight change Past Medical History Past Medical History: Renal Disease Additional Past Medical History / Comment(s): kidney stones, herniated/slipped disk, SPONDYLOLISTHESIS, DDD, low back pain. History of Any Multi-Drug Resistant Organisms: None Reported Past Surgical History: Back Surgery Additional Past Surgical History / Comment(s): Lithotripsy, Kidney stone removal, ureter stent, COLONOSCOPY, left nephrostomy tube 11/09/21 Past Anesthesia/Blood Transfusion Reactions: No Reported Reaction Additional Past Anesthesia/Blood Transfusion Reaction / Comment(s): claustrophobia Past Psychological History: No Psychological Hx Reported Smoking Status: Current every day smoker Past Alcohol Use History: None Reported Past Drug Use History: None Reported - Past Family History Mother Family Medical History: Cancer Additional Family Medical History / Comment(s): LUNG CANCER- SMOKER. Medications and Allergies Home Medications Medication Instructions Recorded Confirmed Type Cholecalciferol [Vitamin D3 (25 50 mcg PO DAILY 10/06/21 11/10/21 History Mcg = 1000 Iu)] Cephalexin [Keflex] 500 mg PO Q12HR #6 cap 11/11/21 Rx Allergies Allergy/AdvReac Type Severity Reaction Status Date / Time No Known Allergies Allergy Verified 11/10/21 16:40 Surgical - Exam - General well developed, well nourished, no distress - Eyes normal ocular movement, no icteric - ENT no hearing loss, no congestion - Neck no masses, trachea midline - Respiratory normal respiratory effort, clear to auscultation - Abdomen left n tube, non functioning. Abdomen: soft, non tender, no guarding, no rigid, no rebound - Integumentary no rash, no abnormal pigmentation - Neurologic no disoriented, no combative - Psychiatric oriented to time, oriented to person, oriented to place, speech is normal, memory intact Results - Imaging CT scan - abdomen: report reviewed, image reviewed CT scan - pelvis: report reviewed, image reviewed Assessment and Plan Assessment: Impression: Left renal stones, large Plan Cysto, occluding balloon left, pcnl left, large
[~2021-11-15 08:24] MED LIST changes: +AMPICILLIN 1,000 MG in SODIUM CHLORIDE 0.9% 50 ML IVPB PRN; +DEXAMETHASONE SOD PHOSPHATE 4 MG/ML 1 ML VIAL IV ONE; +GENTAMICIN 120 MG in SODIUM CHLORIDE 0.9% 100 ML IVPB PRN; -LIDOCAINE 1% (10MG/ML) FOR IV START INTRADERMA PRN; +MIDAZOLAM 2 MG/2 ML VIAL IV PRN; +ONDANSETRON 4 MG/2 ML VIAL IVP ONE; +SCOPOLAMINE 1 MG/72 HR PATCH TRANSDERM ONE
[2021-11-15] MEDS ORDERED: LACTATED RINGERS 1,000 ML IV ONE (08:51)
--- NOTE | 2021-11-15 08:52 | XR ---
EXAMINATION TYPE: XR KUB DATE OF EXAM: 11/15/2021 8:35 AM CLINICAL HISTORY: Left-sided kidney stones TECHNIQUE: Two supine KUB images of the abdomen are obtained. COMPARISON: CT abdomen and pelvis November 07, 2021. FINDINGS: New double-J left ureter stent and percutaneous nephrostomy tube. Persistent 2 adjacent lar ge left renal calculi mid to lower pole level measuring up to 1.8 cm. Smaller left renal calculi less well seen. There are 3 adjacent right renal calculi lower pole level measuring up to 8 mm redemonstr ated. Prostatic calcifications redemonstrated overlying pubic symphysis. Postsurgical change L4-L5 level redemonstrated with artificial disc material lumbosacral junction red emonstrated. Overall nonobstructive bowel gas pattern. IMPRESSION: As above.
[2021-11-15] MEDS ORDERED: fentaNYL (PF) 50 MCG/ML 2 ML AMP ONE (10:12)
[2021-11-15] MEDS ORDERED: MIDAZOLAM 2 MG/2 ML VIAL ONE (10:12)
[2021-11-15] MEDS ORDERED: GLYCOPYRROLATE 0.2 MG/ML 2 ML VIAL ONE (10:12)
[2021-11-15] MEDS ORDERED: ROCURONIUM 10 MG/ML (5 ML VIAL) IV ONE (10:12)
[2021-11-15] MEDS ORDERED: PROPOFOL 10 MG/ML 20 ML VIAL IV ONE (10:12)
[2021-11-15] MEDS ORDERED: PHENYLEPHRINE-0.9% NACL SYG 1,000 MCG/10 ML SYRINGE ONE (10:12)
[2021-11-15] MEDS ORDERED: NEOSTIGMINE 1 MG/ML 10 ML VIAL ONE (10:12)
[2021-11-15] MEDS ORDERED: SUCCINYLCHOLINE CHLORIDE 100 MG/5 ML SYR IV ONE (10:12)
[2021-11-15] MEDS ORDERED: HYDROmorphone (PF) 1 MG/ML ONE (10:12)
[2021-11-15] MEDS ORDERED: LIDOCAINE 4% LTA KIT (4 ML) TOPICAL ONE (10:12)
[2021-11-15] MEDS ORDERED: IOPAMIDOL-370 50ML BTL IRRIGATION ONE ×3 (10:53)
[2021-11-15] MEDS ORDERED: ACETAMINOPHEN TAB 325 MG TAB PO PRN (12:00)
[2021-11-15] MEDS ORDERED: MAG HYDROX/AL HYDROX/SIMETH 30 ML CUP PO PRN (12:00)
[2021-11-15] MEDS ORDERED: ONDANSETRON 4 MG/2 ML VIAL IVP PRN (12:00)
[2021-11-15] MEDS ORDERED: NALOXONE 0.4 MG/ML 1 ML VIAL IV PRN (12:02)
[2021-11-15] MEDS ORDERED: KETOROLAC 15 MG/ML 1 ML VIAL IVP PRN (12:02)
--- NOTE | 2021-11-15 12:11 | P.OP ---
Date of Procedure: 11/15/21 Preoperative Diagnosis: Left renal stones, large, chronic UPJ obstruction Postoperative Diagnosis: Same Procedure(s) Performed: Cystoscopy, removal of double-J catheter, placement of occluding balloon catheter left, percutaneous nephrostomy track establishment (), left percutaneous nephrostolithotomy ultrasound, placement of 20-Japanese reentry nephrostomy tube left Anesthesia: REALA Surgeon: Henok Duarte Estimated Blood Loss (ml): 50 Pathology: other (Stone) Condition: stable Disposition: PACU Indications for Procedure: The patient is 56. He has a history of kidney stones. He has had previous percutaneous nephrostolithotomy on the right. He has 2 large stones on the left when that occluded UPJ obstruction which is chronic into a left lower pole stone. He had a nephrostomy tube placed last week as he did not wish a double-J catheter however he dislodged nephrostomy tube. Therefore had a double-J catheter placed in the interim until this procedure today. Description of Procedure: Patient is brought to the operating suite. He is given general anesthesia. He is given preoperative antibiotics. He's placed lithotomy position with a sterile prep and drape. Cystoscopy with a Foroblique lens and 21-Japanese sheath identifies a normal urethra. The prostates minimally obstructing. The left double-J catheters identified and grasped and pulled to the urethral meatus. Through the double-J catheter an 035 wires passed up into the kidney. I removed the double catheter and over the wire is passed a 5-Japanese occluding balloon catheter. It is secured to a 16-Japanese Sampson The patient is placed in a prone position with care to airways and extremities. I attempted to pass an 035 wire through the previously placed nephrostomy tube it meets blindingly therefore the nephrostomy tube was out of the kidney. It is therefore removed. I then filled the collecting system with air through the occluding balloon catheter. Using a Chiba needle I then performed percutaneous access to a left lower pole calyx of. I passed a cope wire into the collecting system. Over the wire then pass dilating catheter so I can pass an 035 angled glide into the collecting system. Once her as an adequate amount of 035 wire in the collecting system I removed the dilating catheters and passed a 5-Japanese kumpe catheter into the collecting system to try to deflect the wire down the ureter but I am unable to do so due to the UPJ obstruction. I thus coil the wire into the upper pole calyx. I passed the 8 and 10-Japanese exchange catheter is in the left collecting system. I removed the inner catheter in place a second wire into the collecting system. Over the working wire then dilate the tract to 30-Japanese introducing sheath into the collecting system. I then pass the rigid scope into the collecting system and identify the 2 large stones, greater than 2-1/2 cm Using ultrasound they are broken into smaller pieces and removed. Then looked throughout the collecting system with the flexible nephroscope and see no remaining stone. Due to the UPJ obstruction I elected to place a 20-Japanese reentry sheath so that there is catheter across ureter for the next several days. This is done without difficulty. It is secured to the skin with 2-0 silk. The patient is awakened and returned recovery room after the wound is dressed. He tolerated the procedure well. Blood loss is about 50 mL.
[2021-11-15] MEDS: HYDROmorphone 0.5 MG/0.5 ML SYRINGE IVP PRN ×2 (12:18→12:41)
[2021-11-15] MEDS ORDERED: HYDROmorphone 0.5 MG/0.5 ML SYRINGE IVP ONE (12:29)
--- NOTE | 2021-11-15 12:32 | FL ---
Fluoroscopy support HISTORY: Left-sided kidney stone 7 minutes 40 seconds fluoroscopy time supplied to the referring clinician. 11 intraoperative images d ocument the procedure. See dictated report from urology.
[2021-11-15 12:43] VITALS: RESP 16
[2021-11-15] MEDS: HYDROmorphone PCA 10 MG/50 ML BAG IV PRN (14:21)
[2021-11-15] MEDS: DEXTROSE 5%-0.45% NACL 1,000 ML IV SCH ×2 (14:29→23:14)
[2021-11-15] MEDS: CEPHALEXIN 500 MG CAP PO SCH (20:20)
[2021-11-15] MEDS ORDERED: KETOROLAC 15 MG/ML 1 ML VIAL IVP STA (21:32)
[2021-11-16] MEDS: HYDROmorphone PCA 10 MG/50 ML BAG IV PRN (03:14)
--- NOTE | 2021-11-16 07:41 | P.DS ---
Providers Date of admission: 11/16/21 04:11 Attending physician: Henok Duarte [facility] Course: This is a 56-year-old male with history of a large UPJ stone, and a lower pole stone. He underwent left-sided PCNL by Dr. Vogel on November 15. Patient was admitted to the hospital postoperatively. He did well in the postoperative period. He was discharged home on postop day #1, at time of discharge he was tolerating a diet, ambulating, pain was controlled. He was discharged home with the nephrostomy tube Plan - Discharge Summary Discharge Rx Participant: No New Discharge Prescriptions: No Action Cholecalciferol [Vitamin D3 (25 Mcg = 1000 Iu)] 50 mcg PO DAILY Cephalexin [Keflex] 500 mg PO Q12HR #6 cap Discharge Medication List Cholecalciferol [Vitamin D3 (25 Mcg = 1000 Iu)] 50 mcg PO DAILY 10/06/21 [History] Cephalexin [Keflex] 500 mg PO Q12HR #6 cap 11/11/21 [Rx]
[2021-11-16 07:43] VITALS: BP 114/76; PULSE 72; TEMP 97.8
[2021-11-16] MEDS: CEPHALEXIN 500 MG CAP PO SCH ×2 (08:50→08:51)
== END 2021-11-16 09:50 | disposition home or self-care (01) ==
LOC: OR 08:24 → 5NMEDONC 12:13 → OR 11-16 04:11
PROVIDERS: ADMIT Urology; ATTEND Urology
DX: N20.2 Calculus of kidney with calculus of ureter (principal); Z87.442 Personal history of urinary calculi; M43.16 Spondylolisthesis, lumbar region; M51.36 Other intervertebral disc degeneration, lumbar region; F40.240 Claustrophobia; Z80.1 Family history of malignant neoplasm of trachea, bronchus and lung; F17.210 Nicotine dependence, cigarettes, uncomplicated
CPT/HCPCS: 82365; 50432; 74018; 50081; G0378; C1769 ×3; C2628; C1729; J2250; J1100; J2710; J2405; J3010; J1580; J0290; J1170 ×4; J1885; J2370; J0330; J2704; Q9967

== ENCOUNTER → 2021-12-19 | Outpatient (CLI) | payer OTHER ==
[2021-12-19 11:37] LABS: African American GFR (CKD) 77.3 (60.0-200.0); Albumin 4.6 g/dL (3.8-4.9); Anion Gap 12.7 mmol/L (10.00-18.00); BUN/Creat Ratio 15.67 Ratio (12.00-20.00); Blood Urea Nitrogen 18.8 mg/dL (9.0-27.0); Calcium 10.7 mg/dL (8.7-10.3); Carbon Dioxide 22.3 mmol/L (20.0-27.5); Globulin 2.3 g/dL (1.6-3.3); Non-African American GFR(CKD) 66.7 (60.0-200.0); Potassium 4.3 mmol/L (3.5-5.5); Total Bilirubin 0.4 mg/dL (0.30-1.20); Total Protein 6.9 g/dL (6.2-8.2)
== END | disposition home or self-care (01) ==
LOC: LABWHC1 07:22
PROVIDERS: ATTEND Family Medicine
DX: E55.9 Vitamin D deficiency, unspecified (principal); N20.0 Calculus of kidney
CPT/HCPCS: 36415; 80053; 82306; 83970

== ENCOUNTER 2022-04-08 10:11 | Observation (INO) | payer OTHER ==
[2022-04-08] MEDS ORDERED: SODIUM CHLORIDE 0.9% 1,000 ML IV STA (10:38)
[2022-04-08] MEDS ORDERED: KETOROLAC 15 MG/ML 1 ML VIAL IVP STA (10:38)
[2022-04-08] MEDS ORDERED: HYDROmorphone 1 MG/ML 1 ML SYRINGE IVP STA ×2 (10:38→11:45)
[2022-04-08] MEDS ORDERED: ONDANSETRON 4 MG/2 ML VIAL IVP STA (10:38)
[2022-04-08 10:52] LABS: Basophils # (A) 0.1 k/uL (0-0.2); Basophils % (A) 1 %; Eosinophils # (A) 0.2 k/uL (0-0.7); Eosinophils % (A) 1 %; HGB 16.6 gm/dL (13.0-17.5); Lymphocytes % (A) 10 %; MCH 32.4 pg (25.0-35.0); MCHC 34.6 g/dL (31.0-37.0); MCV 93.8 fL (80.0-100.0); Mean Platelet Volume 10.5; Monocytes # (A) 0.7 k/uL (0-1.0); Monocytes % (A) 7 %; Neutrophils # (A) 8.2 k/uL (1.3-7.7); Neutrophils % (A) 79 %; Platelet Count 128 k/uL (150-450); RBC 5.12 m/uL (4.30-5.90); RDW 12.5 % (11.5-15.5); WBC 10.4 k/uL (3.8-10.6)
--- NOTE | 2022-04-08 10:55 | ED ---
General Adult HPI - General Chief complaint: Abdominal Pain Stated complaint: kidney stone Time Seen by Provider: 04/08/22 10:22 Source: patient Mode of arrival: ambulatory Limitations: no limitations - History of Present Illness Initial comments: Dictation was produced using Twistle dictation software. please excuse any grammatical, word or spelling errors. Chief Complaint: 56-year-old male presents emergency department for acute kidney stone pain History of Present Illness: To 56-year-old male has extensive history of nephrolithiasis. Patient has established care with outpatient urologist, Dr. Rabago. Patient states that since 2 AM he started to have sharp right-sided flank pain that radiates to his groin. Associated with nausea. Patient states that his acute symptoms are very classic for his usual kidney stone pain. Darren henley has had multiple urologic procedures to treat kidney stones. The ROS documented in this emergency department record has been reviewed and confirmed by me. Those systems with pertinent positive or negative responses have been documented in the HPI. All other systems are other negative and/or noncontributory. PHYSICAL EXAM: General Impression: Alert and oriented x3, not in acute distress HEENT: Normocephalic atraumatic, extra-ocular movements intact, pupils equal and reactive to light bilaterally, mucous membranes moist. Cardiovascular: Heart regular rate and rhythm Chest: Able to complete full sentences, no retractions, no tachypnea Abdomen: abdomen soft, non-tender, non-distended, no organomegaly Musculoskeletal: Pulses present and equal in all extremities, no peripheral edema Motor: no focal deficits noted Neurological: CN II-XII grossly intact, no focal motor or sensory deficits noted Skin: Intact with no visualized rashes Psych: Normal affect and mood ED course: 56-year-old male presents emergency department for acute flank pain. Clinical presentation consistent with recurrent nephrolithiasis. Vital signs upon arrival are within acceptable limits. Chart review was performed Laboratory evaluation obtained. CBC, metabolic panel, urinalysis obtained. Urinalysis positive for UTI. He is nitrite positive suggesting E. coli infection. Patient treated ceftriaxone. Given patient's intractable pain patient be admitted to urology. Case discussed Dr. Urban. Critical Care: no Critical Care time: n/a - Related Data Home Medications Medication Instructions Recorded Confirmed Cholecalciferol [Vitamin D3 (25 50 mcg PO DAILY 10/06/21 11/15/21 Mcg = 1000 Iu)] Previous Rx's Medication Instructions Recorded Cephalexin [Keflex] 500 mg PO Q12HR #6 cap 11/11/21 HYDROcodone/APAP 5-325MG [[place] 1 tab PO Q4HR PRN 3 Days #18 tab 11/16/21 5-325] Allergies Allergy/AdvReac Type Severity Reaction Status Date / Time No Known Allergies Allergy Verified 11/10/21 16:40 Review of Systems ROS Statement: Those systems with pertinent positive or pertinent negative responses have been documented in the HPI. ROS Other: All systems not noted in ROS Statement are negative. Past Medical History Past Medical History: Renal Disease Additional Past Medical History / Comment(s): kidney stones, herniated/slipped d isk, SPONDYLOLISTHESIS, DDD, low back pain. History of Any Multi-Drug Resistant Organisms: None Reported Past Surgical History: Back Surgery Additional Past Surgical History / Comment(s): Lithotripsy, Kidney stone removal, ureter stent, COLONOSCOPY, nephrostomy tube Past Anesthesia/Blood Transfusion Reactions: No Reported Reaction Additional Past Anesthesia/Blood Transfusion Reaction / Comment(s): claustrophobia Past Psychological History: No Psychological Hx Reported Smoking Status: Current every day smoker Past Alcohol Use History: None Reported Past Drug Use History: None Reported - Past Family History Mother Family Medical History: Cancer Additional Family Medical History / Comment(s): LUNG CANCER- SMOKER. General Exam Limitations: no limitations Course Vital Signs 04/08/22 04/08/22 10:18 12:39 Temperature 98 F Pulse Rate 88 89 Respiratory 16 22 Rate Blood Pressure 166/101 171/99 O2 Sat by Pulse 98 98 Oximetry Medical Decision Making - Lab Data Result diagrams: 04/08/22 10:35 04/08/22 10:35 Lab Results 04/08/22 04/08/22 04/08/22 Range/Units 10:35 10:35 10:35 WBC 10.4 (3.8-10.6) k/uL RBC 5.12 (4.30-5.90) m/uL Hgb 16.6 (13.0-17.5) gm/dL Hct 48.0 (39.0-53.0) % MCV 93.8 (80.0-100.0) fL MCH 32.4 (25.0-35.0) pg MCHC 34.6 (31.0-37.0) g/dL RDW 12.5 (11.5-15.5) % Plt Count 128 L (150-450) k/uL MPV 10.5 Neutrophils % 79 % Lymphocytes % 10 % Monocytes % 7 % Eosinophils % 1 % Basophils % 1 % Neutrophils # 8.2 H (1.3-7.7) k/uL Lymphocytes # 1.0 (1.0-4.8) k/uL Monocytes # 0.7 (0-1.0) k/uL Eosinophils # 0.2 (0-0.7) k/uL Basophils # 0.1 (0-0.2) k/uL Sodium 135 L (137-145) mmol/L Potassium 4.5 (3.5-5.1) mmol/L Chloride 106 (98-107) mmol/L Carbon Dioxide 24 (22-30) mmol/L Anion Gap 5 mmol/L BUN 19 (9-20) mg/dL Creatinine 1.15 (0.66-1.25) mg/dL Est GFR (CKD-EPI)AfAm 82 (>60 ml/min/1.73 sqM) Est GFR (CKD-EPI)NonAf 71 (>60 ml/min/1.73 sqM) Glucose 121 H (74-99) mg/dL Calcium 10.4 H (8.4-10.2) mg/dL Urine Color Yellow Urine Appearance Turbid (Clear) Urine pH 8.0 (5.0-8.0) Ur Specific [place] 1.027 (1.001-1.035) Urine Protein 1+ H (Negative) Urine Glucose (UA) Negative (Negative) Urine Ketones Negative (Negative) Urine Blood Large H (Negative) Urine Nitrite Positive (Negative) Urine Bilirubin Negative (Negative) Urine Urobilinogen 2.0 (<2.0) mg/dL Ur Leukocyte Esterase Large H (Negative) Urine RBC 166 H (0-5) /hpf Urine WBC 139 H (0-5) /hpf Urine WBC Clumps Few H (None) /hpf Ur Squamous Epith Cells <1 (0-4) /hpf Urine Mucus Occasional H (None) /hpf Urine Yeast (Budding) Occasional H (None) /hpf Disposition Clinical Impression: Kidney stone Disposition: ADMITTED IP TO THIS [facility] Condition: Serious Referrals: Jorge Trejo III, MD [Primary Care Provider] - 1-2 days Decision Time: 12:46
[2022-04-08 11:10] LABS: Calcium 10.4 mg/dL (8.4-10.2); Potassium 4.5 mmol/L (3.5-5.1)
--- NOTE | 2022-04-08 11:24 | US ---
EXAMINATION TYPE: US kidneys/renal and bladder DATE OF EXAM: 04/08/2022 COMPARISON: CT, KUB CLINICAL HISTORY: flank pain. Pt states right flank pain, known renal stones EXAM MEASUREMENTS: Right Kidney: 13.1 x 6.3 x 6.9 cm Left Kidney: 12.5 x 5.4 x 5.4 cm Right Kidney: Moderate hydro with probable renal calculi at lower pole 1)= 0.8 cm 2)= 1.1 cm Left Kidney: Appeared wnl Bladder: Pt voided prior to exam The right renal cortex is markedly thinned with increased echogenicity consistent with chronic medica l renal disease. There is mild thinning and increased echogenicity of the left renal cortex indicatin g mild medical renal disease and no solid renal masses are seen. No perinephric fluid collections are seen. Evaluation the urinary bladder is limited due to the patient voiding prior to this exam. IMPRESSION: 1. Moderate right hydronephrosis. There are 2 renal calculi as described above. 2. No left renal calculi and no left-sided hydronephrosis. 3. Bilateral medical renal disease right greater than left. 4. Bladder voided prior to exam therefore evaluation of the bladder is limited.
[2022-04-08 12:03] LABS: Appearance,Urine Turbid (Clear); Bilirubin,Urine Negative (Negative); Blood,Urine Large (Negative); Budding Yeast,Urine Occasional /hpf; Color,Urine Yellow; Glucose,Urine (UA) Negative (Negative); Ketones,Urine Negative (Negative); Leukocyte Esterase,Urine Large (Negative); Mucus,Urine Occasional /hpf; Nitrite,Urine Positive (Negative); Protein,Urine 1+ (Negative); RBC,Urine 166 /hpf (0-5); Specific Gravity,Urine 1.027 (1.001-1.035); Squamous Epithelial Cell,Urine <1 /hpf (0-4); WBC,Urine 139 /hpf (0-5)
[2022-04-08] MEDS ORDERED: ACETAMINOPHEN TAB 325 MG TAB PO PRN (12:43)
[2022-04-08] MEDS ORDERED: ONDANSETRON 4 MG/2 ML VIAL IVP PRN (12:43)
[2022-04-08] MEDS ORDERED: NALOXONE 0.4 MG/ML 1 ML VIAL IV PRN (12:43)
[2022-04-08] MEDS ORDERED: cefTRIAXone IN SWFI 1,000 MG/10 ML SYRINGE IVP STA (12:44)
[2022-04-08] MEDS ORDERED: SODIUM CHLORIDE 0.9% 1,000 ML IV SCH (12:45)
[2022-04-08] MEDS: HYDROmorphone 1 MG/ML 1 ML SYRINGE IVP PRN ×2 (13:09→16:03)
--- NOTE | 2022-04-08 13:20 | XR ---
KUB. HISTORY: Kidney stones COMPARISON: 11/15/2021 TECHNIQUE: 2 upright views of the abdomen were obtained. FINDINGS: The lung bases are clear. There is no free intraperitoneal air beneath the diaphragm. The bowel gas pattern is nonspecific and there is no evidence of obstruction. There is a 16.4 mm calcification likely within the right kidney. No suspicious calcifications are see n in the left kidney area. There is posterior metallic fusion of L4, L5 and S1 IMPRESSION: Nonspecific abdomen without evidence of free air or obstruction. 16.4 mm calcification suspicious for a right renal calculus..
[2022-04-08 15:35] VITALS: RESP 18
[2022-04-08 16:02] VITALS: BP 163/93; PULSE 89; TEMP 97.4
--- NOTE | 2022-04-08 18:10 | P.GSHP ---
History of Present Illness H&P Date: 04/08/22 Chief Complaint: Right renal colic The patient is a 56-year-old white male with a history of urolithiasis. He underwent a left PCNL by Dr. Duarte in November 2021 to remove large left renal calculi. He has known right renal calculi. Early this morning, he experienced acute onset of right flank pain associated with nausea. He presented to the ER. Ultrasound showed evidence of right hydronephrosis, consistent with an obstructing ureteral calculus. KUB x-ray shows a 16 mm right renal calculus. A questionable calcification is seen in the region of the right ureterovesical junction. He was admitted for IV hydration and parenteral analgesics. - Constitutional Constitutional: Denies chills, Denies fever - Genitourinary (Male) Genitourinary: Reports flank pain, Reports hematuria, Reports kidney stones, Denies dysuria Past Medical History Past Medical History: Renal Disease Additional Past Medical History / Comment(s): kidney stones, herniated/slipped disk, SPONDYLOLISTHESIS, DDD, low back pain. History of Any Multi-Drug Resistant Organisms: None Reported Past Surgical History: Back Surgery Additional Past Surgical History / Comment(s): Lithotripsy, Kidney stone removal, ureter stent, COLONOSCOPY, nephrostomy tube Past Anesthesia/Blood Transfusion Reactions: No Reported Reaction Additional Past Anesthesia/Blood Transfusion Reaction / Comment(s): claustrophobia Past Psychological History: No Psychological Hx Reported Additional Psychological History / Comment(s): Pt resides with his significant other. He is independent. He uses no assistive device. He drives. 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 Smoking Status: Current every day smoker Past Alcohol Use History: None Reported Additional Past Alcohol Use History / Comment(s): Pt started smoking about age 37 or 38. He was at one time up to 2 ppd but is quitiing after this admission and is down to smoking 4-5 cig per day before this admit. Past Drug Use History: None Reported Additional Drug Use History / Comment(s): Patient states that he smokes marjuana - Past Family History Mother Family Medical History: Cancer Additional Family Medical History / Comment(s): LUNG CANCER- SMOKER. Medications and Allergies Home Medications Medication Instructions Recorded Confirmed Type Cholecalciferol [Vitamin D3 (25 50 mcg PO DAILY 10/06/21 04/08/22 History Mcg = 1000 Iu)] Tamsulosin HCl [Flomax] 0.4 mg PO BID PRN 04/08/22 04/08/22 History Allergies Allergy/AdvReac Type Severity Reaction Status Date / Time No Known Allergies Allergy Verified 04/08/22 13:18 Surgical - Exam Vital Signs Temp Pulse Resp BP Pulse Ox 98 F 88 16 166/101 98 04/08/22 10:18 04/08/22 10:18 04/08/22 10:18 04/08/22 10:18 04/08/22 10:18 - General well developed, well nourished, no distress - Respiratory normal respiratory effort - Abdomen Abdomen: soft, non tender, no guarding, no rigid, no rebound - Psychiatric oriented to time, oriented to person, oriented to place, speech is normal, memory intact Results - Labs 04/08/22 10:35 04/08/22 10:35 Abnormal Lab Results - Last 24 Hours (Table) 04/08/22 04/08/22 04/08/22 Range/Units 10:35 10:35 10:35 Plt Count 128 L (150-450) k/uL Neutrophils # 8.2 H (1.3-7.7) k/uL Sodium 135 L (137-145) mmol/L Glucose 121 H (74-99) mg/dL Calcium 10.4 H (8.4-10.2) mg/dL Urine Protein 1+ H (Negative) Urine Blood Large H (Negative) Ur Leukocyte Esterase Large H (Negative) Urine RBC 166 H (0-5) /hpf Urine WBC 139 H (0-5) /hpf Urine WBC Clumps Few H (None) /hpf Urine Mucus Occasional H (None) /hpf Urine Yeast (Budding) Occasional H (None) /hpf Diabetes panel 04/08/22 Range/Units 10:35 Sodium 135 L (137-145) mmol/L Potassium 4.5 (3.5-5.1) mmol/L Chloride 106 (98-107) mmol/L Carbon Dioxide 24 (22-30) mmol/L BUN 19 (9-20) mg/dL Creatinine 1.15 (0.66-1.25) mg/dL Glucose 121 H (74-99) mg/dL Calcium 10.4 H (8.4-10.2) mg/dL Calcium panel 04/08/22 Range/Units 10:35 Calcium 10.4 H (8.4-10.2) mg/dL Pituitary panel 04/08/22 Range/Units 10:35 Sodium 135 L (137-145) mmol/L Potassium 4.5 (3.5-5.1) mmol/L Chloride 106 (98-107) mmol/L Carbon Dioxide 24 (22-30) mmol/L BUN 19 (9-20) mg/dL Creatinine 1.15 (0.66-1.25) mg/dL Glucose 121 H (74-99) mg/dL Calcium 10.4 H (8.4-10.2) mg/dL Adrenal panel 04/08/22 Range/Units 10:35 Sodium 135 L (137-145) mmol/L Potassium 4.5 (3.5-5.1) mmol/L Chloride 106 (98-107) mmol/L Carbon Dioxide 24 (22-30) mmol/L BUN 19 (9-20) mg/dL Creatinine 1.15 (0.66-1.25) mg/dL Glucose 121 H (74-99) mg/dL Calcium 10.4 H (8.4-10.2) mg/dL - Imaging US - kidney/bladder: report reviewed Assessment and Plan (1) Calculus of ureter Current Visit: Yes Status: Acute Code(s): N20.1 - CALCULUS OF URETER SNOMED Code(s): 00694705 (2) Renal calculus Current Visit: Yes Status: Acute Code(s): N20.0 - CALCULUS OF KIDNEY SNOMED Code(s): 15684896 (3) Hydronephrosis with renal and ureteral calculous obstruction Current Visit: Yes Status: Acute Code(s): N13.2 - HYDRONEPHROSIS WITH RENAL AND URETERAL CALCULOUS OBSTRUCTION SNOMED Code(s): 763094322 Plan: Upon admission, the patient was treated with IV hydration, parenteral analgesics, and anti-emetics. He passed a calculus which measures approximately 6 mm this afternoon and is now asymptomatic. He will be discharged home and follow up with Dr. Duarte. He has an appointment to see Dr. Duarte in June 2022, at which time a KUB x-ray will be obtained to monitor the size of the right renal pelvic calculus. He was advised to contact Dr. Duarte sooner if he develops symptoms. Time with Patient: Greater than 30
--- NOTE | 2022-04-08 18:12 | P.DS ---
Providers Date of admission: 04/08/22 12:43 Expected date of discharge: 04/08/22 Attending physician: Aram Urban Primary care physician: Jorge Trejo - Discharge Diagnosis(es) (1) Calculus of ureter Current Visit: Yes Status: Acute (2) Renal calculus Current Visit: Yes Status: Acute (3) Hydronephrosis with renal and ureteral calculous obstruction Current Visit: Yes Status: Acute Hospital Course: The patient has a history of kidney stones. He presented to the ER with right renal colic. Given that he has known right renal calculi, ultrasound was obtained revealing evidence of right hydronephrosis. This suggested the presence of a right ureteral calculus, and a calculus was vaguely seen in the region of the right ureterovesical junction. The patient was treated with IV hydration, parenteral analgesics and antibiotics. He passed the calculus and his symptoms resolved. Procedures: None Patient Condition at Discharge: Good Plan - Discharge Summary Discharge Rx Participant: No New Discharge Prescriptions: No Action Cholecalciferol [Vitamin D3 (25 Mcg = 1000 Iu)] 50 mcg PO DAILY Tamsulosin HCl [Flomax] 0.4 mg PO BID PRN PRN Reason: KIDNEY STONE PAIN Discharge Medication List Cholecalciferol [Vitamin D3 (25 Mcg = 1000 Iu)] 50 mcg PO DAILY 10/06/21 [History] Tamsulosin HCl [Flomax] 0.4 mg PO BID PRN 04/08/22 [History] Follow up Appointment(s)/Referral(s): Jorge Trejo III, MD [Primary Care Provider] - 1-2 days Activity/Diet/Wound Care/Special Instructions: Diet as tolerated. Drink plenty of fluids for 48 hours. Activity as tolerated. Patient was advised to follow-up with Dr. Duarte as scheduled in June 2022, sooner if he develops symptoms. Discharge Disposition: HOME SELF-CARE
== END 2022-04-08 18:30 | disposition home or self-care (01) ==
LOC: EC 10:11 → 6NMEDSUR 12:43
PROVIDERS: ADMIT Urology; ATTEND Urology
DX: N13.2 Hydronephrosis with renal and ureteral calculous obstruction (principal); Z87.442 Personal history of urinary calculi; F17.200 Nicotine dependence, unspecified, uncomplicated
CPT/HCPCS: 96376; 96361; 96374; 96375; 99285; 51798; 36415; 80048; 85025; 81001; 87040; 87086; 74018; 76770; G0378 ×2; J2405; J0696; J1170; J1885

== ENCOUNTER → 2022-06-13 | Outpatient (CLI) | payer OTHER ==
--- NOTE | 2022-06-13 09:05 | XR ---
EXAMINATION TYPE: XR KUB DATE OF EXAM: 06/13/2022 HISTORY: Pain Comparison: None.Single KUB is submitted for interpretation. Findings: Right renal calculi: 2.2 cm calculus right kidney. Smaller adjacent 7.4mm calculus noted Right ureteral calculi: None Visualized. Left renal calculi: None Visualized. Left ureteral calculi: None Visualized. Pelvic calcifications: Prostate calcifications Bowel gas pattern is unremarkable. No free air. No mass effects. IMPRESSION: 1. As above
== END | disposition home or self-care (01) ==
LOC: RADXRMAIN 08:07
PROVIDERS: ATTEND Urology
DX: N20.0 Calculus of kidney (principal)
CPT/HCPCS: 74018

== ENCOUNTER 2022-09-05 14:15 | Emergency (ER) | payer OTHER ==
[2022-09-05 14:48] VITALS: TEMP 97.8
[2022-09-05] MEDS ORDERED: HYDROmorphone 0.5 MG/0.5 ML SYRINGE IVP STA ×2 (15:16→18:05)
[2022-09-05] MEDS ORDERED: KETOROLAC 15 MG/ML 1 ML VIAL IVP STA ×2 (15:32→17:48)
[2022-09-05] MEDS ORDERED: SODIUM CHLORIDE 0.9% 1,000 ML IV ONE (15:32)
[2022-09-05 16:02] LABS: Basophils # (A) 0.1 k/uL (0-0.2); Basophils % (A) 1 %; Eosinophils # (A) 0.2 k/uL (0-0.7); Eosinophils % (A) 2 %; HCT 49.7 % (39.0-53.0); HGB 17.1 gm/dL (13.0-17.5); Lymphocytes # (A) 1.3 k/uL (1.0-4.8); Lymphocytes % (A) 14 %; MCHC 34.4 g/dL (31.0-37.0); MCV 93.1 fL (80.0-100.0); Mean Platelet Volume 9.9; Monocytes # (A) 0.8 k/uL (0-1.0); Monocytes % (A) 8 %; Neutrophils # (A) 6.8 k/uL (1.3-7.7); Neutrophils % (A) 73 %; Platelet Count 148 k/uL (150-450); RBC 5.34 m/uL (4.30-5.90); RDW 11.9 % (11.5-15.5); WBC 9.3 k/uL (3.8-10.6)
--- NOTE | 2022-09-05 16:04 | XR ---
EXAMINATION TYPE: XR KUB DATE OF EXAM: 09/05/2022 3:53 PM INDICATION: Patient age:Male; 57 years old; Reason for study: abdominal pain, hx nephrolithiasis; COMPARISON: Radiograph 06/13/2022 TECHNIQUE: One radiographic view of the abdomen was obtained. FINDINGS staghorn calculus within the right kidney measuring larger to prior to 06/01/2022 now measuri ng 3.4 x 2.1 and 1.5 x 0.5 cm. Fixation hardware in the lower spine appears intact. Nonspecific bowel gas pattern. IMPRESSION: 1. Right-sided nephrolithiasis which is increased in size from prior. 2. Nonspecific bowel gas pattern without radiographic evidence for acute process.
--- NOTE | 2022-09-05 16:15 | ED ---
General Adult HPI - General Chief complaint: Abdominal Pain Stated complaint: kidney stone Time Seen by Provider: 09/05/22 14:56 Source: patient, RN notes reviewed Mode of arrival: ambulatory Limitations: no limitations - History of Present Illness Initial comments: 57-year-old male presents emergency Department with chief complaint of right- sided abdominal pain that radiates to the groin. patient states that he has an extensive history of kidney stones. He states that this pain is the same as when he has had kidney stones in the past. He states that he's been having the pain for 3 weeks but within the past day the pain has been much worse. Patient states that he is in the emergency department and admitted to the hospital in May for kidney stone. He sees Dr. Duarte. He states the pain started 2 weeks ago but worsened this morning at around 2 AM. He states that he has been having hematuria for 2 weeks. - Related Data Home Medications Medication Instructions Recorded Confirmed Cholecalciferol [Vitamin D3 (25 50 mcg PO DAILY 10/06/21 04/08/22 Mcg = 1000 Iu)] Tamsulosin HCl [Flomax] 0.4 mg PO BID PRN 04/08/22 04/08/22 Previous Rx's Medication Instructions Recorded Ondansetron Odt [Zofran Odt] 4 mg PO Q8HR PRN #10 tab 09/05/22 Allergies Allergy/AdvReac Type Severity Reaction Status Date / Time No Known Allergies Allergy Verified 09/05/22 14:48 Review of Systems ROS Statement: Those systems with pertinent positive or pertinent negative responses have been documented in the HPI. ROS Other: All systems not noted in ROS Statement are negative. Past Medical History Past Medical History: Renal Disease Additional Past Medical History / Comment(s): kidney stones, herniated/slipped disk, SPONDYLOLISTHESIS, DDD, low back pain. History of Any Multi-Drug Resistant Organisms: None Reported Past Surgical History: Back Surgery Additional Past Surgical History / Comment(s): Lithotripsy, Kidney stone removal, ureter stent, COLONOSCOPY, nephrostomy tube Past Anesthesia/Blood Transfusion Reactions: No Reported Reaction Additional Past Anesthesia/Blood Transfusion Reaction / Comment(s): claustrophobia Past Psychological History: No Psychological Hx Reported Smoking Status: Current every day smoker Past Alcohol Use History: None Reported Past Drug Use History: None Reported - Past Family History Mother Family Medical History: Cancer Additional Family Medical History / Comment(s): LUNG CANCER- SMOKER. General Exam Limitations: no limitations General appearance: alert, in no apparent distress Head exam: Present: atraumatic, normocephalic, normal inspection Eye exam: Present: normal appearance ENT exam: Present: normal exam, mucous membranes moist Respiratory exam: Present: normal lung sounds bilaterally. Absent: respiratory distress, wheezes, rales, rhonchi, stridor Cardiovascular Exam: Present: regular rate, normal rhythm, normal heart sounds. Absent: systolic murmur, diastolic murmur, rubs, gallop, clicks GI/Abdominal exam: Present: soft, normal bowel sounds. Absent: distended, tenderness, guarding, rebound, rigid Back exam: Present: other (Right flank TTP) Psychiatric exam: Present: anxious Skin exam: Present: warm, dry, intact, normal color. Absent: rash Course Vital Signs 09/05/22 14:45 Temperature 97.8 F Pulse Rate 104 H Respiratory 20 Rate Blood Pressure 127/86 O2 Sat by Pulse 98 Oximetry Medical Decision Making - Medical Decision Making Was pt. sent in by a medical professional or institution (, PA, [facility], urgent care, hospital, or usp...) When possible be specific @ -No Did you speak to anyone other than the patient for history (EMS, parent, family, police, friend...)? What history was obtained from this source @ -No Did you review nursing and triage notes (agree or disagree)? Why? @ -I reviewed and agree with nursing and triage notes Were old charts reviewed (outside hosp., previous admission, EMS record, old EKG, old radiological studies, urgent care reports/EKG's, usp records)? Report findings @ -No old charts were reviewed Differential Diagnosis (chest pain, altered mental status, abdominal pain women, abdominal pain men, vaginal bleeding, weakness, fever, dyspnea, syncope, headache, dizziness, GI bleed, back pain, seizure, CVA, palpatations, mental health, musculoskeletal)? @ -Differential Abdominal Pain Men: Appendicitis, cholecystitis, diverticulosis, ischemic bowel, pancreatitis, hepatitis, UTI, gastroenteritis, AAA, incarcerated hernia, bowel obstruction, constipation, inflammatory bowel, hepatitis, peptic ulcer disease, splenic infarction, perforated viscus, testicular torsion, this is not meant to be an all-inclusive list EKG interpreted by me (3pts min.). @ -None X-rays interpreted by me (1pt min.). @ -None done CT interpreted by me (1pt min.). @ -None done U/S interpreted by me (1pt. min.). @ -None done What testing was considered but not performed or refused? (CT, X-rays, U/S, labs)? Why? @ -None What meds were considered but not given or refused? Why? @ -None Did you discuss the management of the patient with other professionals (professionals i.e. , PA, [facility], lab, RT, psych nurse, director social, storm sash maker, teacher, juvenile detention officer, case picker)? Give summary @ -Case was discussed with Dr. Urban which states that there is nothing to be done at this point besides schedule for outpatient surgery Was smoking cessation discussed for >3mins.? @ -No Was critical care preformed (if so, how long)? @ -No Were there social determinants of health that impacted care today? How? (Homelessness, low income, unemployed, alcoholism, drug addiction, transportation, low edu. Level, literacy, decrease access to med. care, correction, rehab)? @ -No Was there de-escalation of care discussed even if they declined (Discuss DNR or withdrawal of care, Hospice)? DNR status @ -No What co-morbidities impacted this encounter? (DM, HTN, Smoking, COPD, CAD, C ancer, CVA, ARF, Chemo, Hep., AIDS, mental health diagnosis, sleep apnea, morbid obesity)? @ -None Was patient admitted / discharged? Hospital course, mention meds given and route, prescriptions, significant lab abnormalities, going to OR and other pertinent info. @ -Discharged. Patient presented to the emergency department with right sided abdominal pain consistent with his nephrolithiasis pain. VSS. Patient was given diluadid and toradol for pain. CBC showed WBC 9.3, hgb 17.1, hct 49.7; CMP showed Na 139, potassium 4.4, BUN 24, Cr 1.24; UA showed large blood, large leukocyte esterase; KUB XR showed right-sided nephrolithiasis which is increased in size from prior, nonspecific bowel gas pattern without radiologic evidence for acute process. Dr Alvarado discussed the case with Dr. Urban which stated will be managed as an outpatient with Dr. Duarte. Patient to be set up for surgery. Patient stated that he did not want pain medications at home because he is worried about addiction. Case was discussed with Dr. Alvarado. Patient discharged in stable condition. Undiagnosed new problem with uncertain prognosis? @ -No Drug Therapy requiring intensive monitoring for toxicity (Heparin, Nitro, Insulin, Cardizem)? @ -No Were any procedures done? @ -No Diagnosis/symptom? @ -nephrolithiasis Acute, or Chronic, or Acute on Chronic? @ -acute Uncomplicated (without systemic symptoms) or Complicated (systemic symptoms)? @ -uncomplicated Side effects of treatment? @ -No Exacerbation, Progression, or Severe Exacerbation? @ -No Poses a threat to life or bodily function? How? (Chest pain, USA, ME, pneumonia, PE, COPD, DKA, ARF, appy, cholecystitis, CVA, Diverticulitis, Homicidal, Suicidal, threat to staff... and all critical care pts) @ -No - Lab Data Result diagrams: 09/05/22 15:35 09/05/22 15:35 Lab Results 09/05/22 09/05/22 09/05/22 Range/Units 15:35 15:35 15:35 WBC 9.3 (3.8-10.6) k/uL RBC 5.34 (4.30-5.90) m/uL Hgb 17.1 (13.0-17.5) gm/dL Hct 49.7 (39.0-53.0) % MCV 93.1 (80.0-100.0) fL MCH 32.0 (25.0-35.0) pg MCHC 34.4 (31.0-37.0) g/dL RDW 11.9 (11.5-15.5) % Plt Count 148 L (150-450) k/uL MPV 9.9 Neutrophils % 73 % Lymphocytes % 14 % Monocytes % 8 % Eosinophils % 2 % Basophils % 1 % Neutrophils # 6.8 (1.3-7.7) k/uL Lymphocytes # 1.3 (1.0-4.8) k/uL Monocytes # 0.8 (0-1.0) k/uL Eosinophils # 0.2 (0-0.7) k/uL Basophils # 0.1 (0-0.2) k/uL Sodium 139 (137-145) mmol/L Potassium 4.4 (3.5-5.1) mmol/L Chloride 106 (98-107) mmol/L Carbon Dioxide 21 L (22-30) mmol/L Anion Gap 12 mmol/L BUN 24 H (9-20) mg/dL Creatinine 1.24 (0.66-1.25) mg/dL Est GFR (CKD-EPI)AfAm 74 (>60 ml/min/1.73 sqM) Est GFR (CKD-EPI)NonAf 64 (>60 ml/min/1.73 sqM) Glucose 81 (74-99) mg/dL Calcium 10.9 H (8.4-10.2) mg/dL Total Bilirubin 0.6 (0.2-1.3) mg/dL AST 31 (17-59) U/L ALT 44 (4-49) U/L Alkaline Phosphatase 86 (38-126) U/L Total Protein 7.4 (6.3-8.2) g/dL Albumin 4.5 (3.5-5.0) g/dL Urine Color Yellow Urine Appearance Turbid (Clear) Urine pH 7.5 (5.0-8.0) Ur Specific [place] 1.020 (1.001-1.035) Urine Protein 1+ H (Negative) Urine Glucose (UA) Negative (Negative) Urine Ketones Negative (Negative) Urine Blood Large H (Negative) Urine Nitrite Negative (Negative) Urine Bilirubin Negative (Negative) Urine Urobilinogen <2.0 (<2.0) mg/dL Ur Leukocyte Esterase Large H (Negative) Urine RBC >182 H (0-5) /hpf Urine WBC 109 H (0-5) /hpf Ur Squamous Epith Cells <1 (0-4) /hpf Triple Phos Crystals Rare H (None) /hpf Urine Bacteria Rare H (None) /hpf Urine Mucus Rare H (None) /hpf Disposition Clinical Impression: Renal colic on right side Disposition: HOME SELF-CARE Condition: Stable Instructions (If sedation given, give patient instructions): Kidney Stones (ED) Additional Instructions: Please call Dr. Duarte's office in the morning. Please return to the Emergency Department if symptoms worsen or any other concerns. Prescriptions: Ondansetron Odt [Zofran Odt] 4 mg PO Q8HR PRN #10 tab PRN Reason: Nausea Is patient prescribed a controlled substance at d/c from ED?: No Referrals: Jorge Trejo III, MD [Primary Care Provider] - 1-2 days Time of Disposition: 18:17
[2022-09-05 16:19] LABS: Albumin 4.5 g/dL (3.5-5.0); Calcium 10.9 mg/dL (8.4-10.2); Potassium 4.4 mmol/L (3.5-5.1); Total Bilirubin 0.6 mg/dL (0.2-1.3); Total Protein 7.4 g/dL (6.3-8.2)
[2022-09-05 16:57] LABS: Appearance,Urine Turbid (Clear); Bacteria,Urine Rare /hpf; Bilirubin,Urine Negative (Negative); Blood,Urine Large (Negative); Color,Urine Yellow; Glucose,Urine (UA) Negative (Negative); Ketones,Urine Negative (Negative); Leukocyte Esterase,Urine Large (Negative); Mucus,Urine Rare /hpf; Nitrite,Urine Negative (Negative); PH, Urine 7.5 (5.0-8.0); Protein,Urine 1+ (Negative); RBC,Urine >182 /hpf (0-5); Squamous Epithelial Cell,Urine <1 /hpf (0-4); Triple Phosphate Crystal,Urine Rare /hpf; Urobilinogen,Urine <2.0 mg/dL (<2.0); WBC,Urine 109 /hpf (0-5)
[2022-09-05 19:15] VITALS: BP 133/94; PULSE 80; RESP 18
== END 2022-09-05 19:05 | disposition home or self-care (01) ==
LOC: EC 14:15
DX: N20.0 Calculus of kidney (principal); F17.200 Nicotine dependence, unspecified, uncomplicated
CPT/HCPCS: 99284 ×2; 96374 ×2; 96375 ×2; 96376 ×2; 96361 ×2; 36415; 80053; 85025; 81001; 74018; J1885; J1170

== ENCOUNTER → 2022-09-19 | Outpatient (CLI) | payer OTHER ==
[2022-09-19 15:39] LABS: Basophils # (A) 0.07 X 10*3/uL (0.00-0.10); Basophils % (A) 0.8 %; Eosinophils # (A) 0.26 X 10*3/uL (0.04-0.35); Eosinophils % (A) 2.9 %; HCT 50.5 % (39.6-50.0); HGB 16.2 g/dL (13.0-17.0); Immature Grans, Automated 0.4 %; Lymphocytes # (A) 1.26 X 10*3/uL (0.90-5.00); Lymphocytes % (A) 13.9 %; MCH 31.2 pg (27.0-32.0); MCHC 32.1 g/dL (32.0-37.0); MCV 97.3 fL (80.0-97.0); Mean Platelet Volume 12.6 fL (9.5-12.2); Monocytes # (A) 0.92 X 10*3/uL (0.20-1.00); Monocytes % (A) 10.2 %; NRBC Per 100 WBC 0 /100 WBCS (0.0-0.0); Neutrophils # (A) 6.51 X 10*3/uL (1.80-7.70); Neutrophils % (A) 71.8 %; Platelet Count 160 X 10*3/uL (140-440); RBC 5.19 X 10*6/uL (4.40-5.60); RDW 11.9 % (11.5-14.5); WBC 9.06 X 10*3/uL (4.50-10.00)
[2022-09-19 16:00] LABS: African American GFR (CKD) 69.7 (60.0-200.0); Albumin 4.7 g/dL (3.8-4.9); Albumin/Globulin Ratio 2.04 (1.60-3.17); Anion Gap 9.3 mmol/L (10.00-18.00); BUN/Creat Ratio 15.54 Ratio (12.00-20.00); Blood Urea Nitrogen 20.2 mg/dL (9.0-27.0); Calcium 11.1 mg/dL (8.7-10.3); Carbon Dioxide 25.7 mmol/L (20.0-27.5); Globulin 2.3 g/dL (1.6-3.3); Non-African American GFR(CKD) 60.1 (60.0-200.0); Potassium 5.2 mmol/L (3.5-5.5); Total Bilirubin 0.3 mg/dL (0.30-1.20)
[2022-09-19 16:01] LABS: Appearance,Urine Cloudy (Clear); Bilirubin,Urine Negative (Negative); Blood,Urine Moderate (Negative); Color,Urine Yellow (Yellow); Ketones,Urine Negative (Negative); Nitrite,Urine Negative (Negative); PH, Urine 7.5 (5.0-8.0); Specific Gravity,Urine 1.017 (1.001-1.030); Urobilinogen,Urine 0.2 (0.2,1.0)
[2022-09-19 16:53] LABS: Bacteria,Urine None Seen /HPF (None Seen)
== END | disposition home or self-care (01) ==
LOC: LABPAT 09:10
PROVIDERS: ATTEND Urology
DX: Z01.812 Encounter for preprocedural laboratory examination (principal); N20.0 Calculus of kidney; R31.29 Other microscopic hematuria
CPT/HCPCS: 36415; 80053; 81001; 85025; 87086

== ENCOUNTER 2022-09-26 10:09 | Observation (INO) | payer OTHER ==
[2022-09-21 13:50] VITALS: BMI 28.5
--- NOTE | 2022-09-25 16:55 | P.GSHP ---
History of Present Illness H&P Date: 09/25/22 57 yomale with a history of stones He has a painful large right renal stone[>3cm] and comes for a right pcnl/ The risks and complications have been discussed. - Constitutional Constitutional: Denies chills, Denies fever - EENT Eyes: denies blurred vision, denies pain Ears, nose, mouth and throat: Denies headache, Denies sore throat - Cardiovascular Cardiovascular: Denies chest pain, Denies shortness of breath - Respiratory Respiratory: Denies cough, Denies 7 - Gastrointestinal Gastrointestinal: Denies abdominal pain, Denies diarrhea, Denies nausea, Denies vomiting - Genitourinary (Female) Genitourinary: Denies dysuria, Denies hematuria - Genitourinary (Male) Genitourinary: Denies dysuria, Denies hematuria - Musculoskeletal Musculoskeletal: Denies myalgias - Integumentary Integumentary: Denies pruritus, Denies rash - Neurological Neurological: Denies numbness, Denies weakness - Psychiatric Psychiatric: Denies anxiety, Denies depression - Endocrine Endocrine: Denies fatigue, Denies weight change Past Medical History Past Medical History: Renal Disease Additional Past Medical History / Comment(s): kidney stones, herniated/slipped disk, SPONDYLOLISTHESIS, DDD, low back pain. History of Any Multi-Drug Resistant Organisms: None Reported Past Surgical History: Back Surgery Additional Past Surgical History / Comment(s): Lithotripsy, Kidney stone removal, ureter stent, COLONOSCOPY, nephrostomy tube Past Anesthesia/Blood Transfusion Reactions: No Reported Reaction Additional Past Anesthesia/Blood Transfusion Reaction / Comment(s): claustrophobia Past Psychological History: No Psychological Hx Reported Smoking Status: Current every day smoker Past Alcohol Use History: None Reported Past Drug Use History: Marijuana Additional Drug Use History / Comment(s): Patient states that he smokes marjuana occasionally - Past Family History Mother Family Medical History: Cancer Additional Family Medical History / Comment(s): LUNG CANCER- SMOKER. Medications and Allergies Home Medications Medication Instructions Recorded Confirmed Type Cholecalciferol [Vitamin D3 (25 50 mcg PO DAILY 10/06/21 09/21/22 History Mcg = 1000 Iu)] Allergies Allergy/AdvReac Type Severity Reaction Status Date / Time No Known Allergies Allergy Verified 09/21/22 13:40 Surgical - Exam - General well developed, well nourished, no distress - Eyes normal ocular movement, no icteric - ENT no hearing loss, no congestion - Neck no masses, trachea midline - Respiratory normal respiratory effort, clear to auscultation - Abdomen Abdomen: soft, non tender, no guarding, no rigid, no rebound - Integumentary no rash, no abnormal pigmentation - Neurologic no disoriented, no combative - Psychiatric oriented to time, oriented to person, oriented to place, speech is normal, memory intact Results - Imaging Abdominal x-ray: report reviewed, image reviewed CT scan - abdomen: report reviewed, image reviewed CT scan - pelvis: report reviewed, image reviewed Assessment and Plan Assessment: Impression: Right renal stone large Plan: pcnl right
[~2022-09-26 10:09] MED LIST changes: -AMPICILLIN 1,000 MG in SODIUM CHLORIDE 0.9% 50 ML IVPB PRN; -GENTAMICIN 120 MG in SODIUM CHLORIDE 0.9% 100 ML IVPB PRN; +HYDROmorphone 0.5 MG/0.5 ML SYRINGE IVP PRN; +LIDOCAINE 1% (10MG/ML) FOR IV START INTRADERMA PRN; -MIDAZOLAM 2 MG/2 ML VIAL IV PRN; -SCOPOLAMINE 1 MG/72 HR PATCH TRANSDERM ONE; +droPERidol 5 MG/2 ML VIAL IVP ONE
--- NOTE | 2022-09-26 10:30 | XR ---
EXAMINATION TYPE: XR KUB DATE OF EXAM: 09/26/2022 10:21 AM INDICATION: Patient age:Male; 57 years old; Reason for study: N20.0 right renal stone COMPARISON: CT 11/07/2021, KUB most recent 09/05/2022 TECHNIQUE: One radiographic view of the abdomen was obtained. FINDINGS: Bilateral renal collecting system calcifications measuring up to 5.5 x 2.8 cm on the right and 1.2 centers on the left. The right has a staghorn appearance. Nonspecific bowel gas pattern. Cons ultations project over the lower pelvis in the area of the prostate gland. Fixation within the lower spine. No evidence of fracture. IMPRESSION: Persistent bilateral renal calculi.
[2022-09-26] MEDS ORDERED: MIDAZOLAM 2 MG/2 ML VIAL ONE (13:22)
[2022-09-26] MEDS ORDERED: PROPOFOL 10 MG/ML 20 ML VIAL IV ONE (13:22)
[2022-09-26] MEDS ORDERED: fentaNYL (PF) 50 MCG/ML 2 ML AMP ONE (13:22)
[2022-09-26] MEDS ORDERED: NEOSTIGMINE 1 MG/ML 10 ML VIAL ONE (13:22)
[2022-09-26] MEDS ORDERED: SUCCINYLCHOLINE CHLORIDE 200 MG/10 ML VIAL IV ONE (13:22)
[2022-09-26] MEDS ORDERED: LIDOCAINE 2% INJ 20 MG/ML (2 ML VIAL) ONE (13:22)
[2022-09-26] MEDS ORDERED: ROCURONIUM 10 MG/ML (5 ML VIAL) IV ONE (13:22)
[2022-09-26] MEDS ORDERED: GLYCOPYRROLATE 0.2 MG/ML 2 ML VIAL ONE (13:22)
[2022-09-26] MEDS ORDERED: HYDROmorphone (PF) 1 MG/ML ONE (13:22)
[2022-09-26] MEDS ORDERED: KETAMINE 10 MG/ML 20 ML VIAL ONE (13:22)
[2022-09-26] MEDS ORDERED: PHENYLEPHRINE-0.9% NACL SYG 1,000 MCG/10 ML SYRINGE ONE (13:22)
[2022-09-26] MEDS ORDERED: IOPAMIDOL-370 100ML BTL MISCELLANE ONE ×2 (13:57)
[2022-09-26] MEDS ORDERED: LACTATED RINGERS 1,000 ML IV ONE ×2 (14:17→17:31)
[2022-09-26] MEDS ORDERED: IOHEXOL 350 MG/ML 50 ML in EMPTY BAG 1 BAG IRRIGATION ONE (17:21)
[2022-09-26] MEDS ORDERED: ONDANSETRON 4 MG/2 ML VIAL IVP PRN (17:40)
[2022-09-26] MEDS ORDERED: NALOXONE 0.4 MG/ML 1 ML VIAL IV PRN (17:40)
[2022-09-26] MEDS ORDERED: diphenhydrAMINE 50 MG/ML 1 ML VIAL IVP PRN (17:40)
[2022-09-26] MEDS ORDERED: ACETAMINOPHEN TAB 325 MG TAB PO PRN (17:43)
[2022-09-26] MEDS ORDERED: MAG HYDROX/AL HYDROX/SIMETH 30 ML CUP PO PRN (17:43)
--- NOTE | 2022-09-26 17:49 | P.OP ---
Date of Procedure: 09/26/22 Preoperative Diagnosis: Right renal stones (large greater than 5 cm) Postoperative Diagnosis: Same Procedure(s) Performed: Cystoscopy, placement of occluding balloon catheter, percutaneous nephrostomy access 2 ( Dr. milligan) percutaneous nephrostolithotomy with ultrasound and laser, placement of 20-[place] reentry for nephrostomy tube and 12-[place] J nephrostomy tube Anesthesia: CHANO Surgeon: Henok Duarte Estimated Blood Loss (ml): 300 Pathology: other (Stone) Indications for Procedure: Patient is 57. He has active urolithiasis. He is LC [place] sling calcium phosphate stones. He is on medical management. He had an 8 mm right lower pole stone 8 months ago. It is now 5.5 cm. It is causing him pain. He comes for right percutaneous nephrostolithotomy. 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 Description of Procedure: Patient brought to the operating suite. Given general anesthesia. Placed lithotomy position with sterile prep and drape. Cystoscopy of the Foroblique lens and 21-[place] sheath identifies a nonobstructing prostate. The right ureteral orifice is identified and intubated with a 5-[place] occluding balloon catheter passed up to the UPJ. The patient's placed in a prone position with care to airways and extremities. Dr. Ramiro Milligan of radiology performed percutaneous access to the right upper pole calyx. I dilate the tract to 30-[place]er. I advanced the rigid scope into the collecting system and passed down into the renal pelvis of the upper pole pelvis. Stone was seen 9 him able to break it up with difficulty with ultrasound and laser. The stone is extremely hard and does not break easily. Our saphenous the procedure I realize I cannot get all the stone due to the complex intrarenal anatomy with this access. Dr. Milligan of radiology read enters the procedure and performed percutaneous access to a right lower pole calyx. I'm then able to come on the remaining portion of the wound and the bifid pelvis. I'm able to remove that with ultrasound. I removed 2 calyceal stones in the lower pole. Again I used ultrasound and laser. I looked throughout the collecting system with the flexible scope. There is another 78 mm stone in an anterior lower pole calyx that I'm not able to adequately access from either nephrostomy tube. I can get the flexible scope into the calyx that I cannot engage the stone with the basket or the laser. The plan will be to do shockwave lithotripsy to the remaining stone and let it drain out the nephrostomy tube. A 20-[place] reentry nephrostomy tube was placed in the upper pole calyx access and a 12 J nephrostomy tube is placed in the lower pole calyx access. These are secured the skin with 3-0 silk a. The patient awake and returned recovery in good condition. Blood loss is about 300 mL.
--- NOTE | 2022-09-26 17:56 | FL ---
EXAMINATION TYPE: FL Perc Nephrostomy New Access DATE OF EXAM: 09/26/2022 COMPARISON: KUB x-ray earlier today HISTORY: Right renal stone. TECHNIQUE: Fluoroscopy. FINDINGS: Fluoroscopic guidance was provided during right stone treatment procedure performed by Dr. Duarte. A total of 4 minutes 46 seconds of fluoroscopic time was utilized during the procedure and f or spot images was acquired. Total dose area product (DAP) in uGy*m?, mGy*cm? (or similar): 24.556. IMPRESSION: As Above.
[2022-09-26] MEDS: KETOROLAC 15 MG/ML 1 ML VIAL IVP PRN (18:09)
[2022-09-26] MEDS: DEXTROSE 5%-0.45% NACL 1,000 ML IV SCH (18:51)
[2022-09-26] MEDS: HYDROmorphone PCA 10 MG/50 ML BAG IV PRN (21:06)
[2022-09-27] MEDS: KETOROLAC 15 MG/ML 1 ML VIAL IVP PRN ×4 (01:49→20:57)
[2022-09-27] MEDS ORDERED: TAMSULOSIN 0.4 MG CAP.ER.24H PO STA (02:01)
[2022-09-27 04:12] LABS: Basophils % (A) 0 %; Eosinophils % (A) 0 %; Lymphocytes % (A) 6 %; MCH 32.1 pg (25.0-35.0); MCHC 33.7 g/dL (31.0-37.0); MCV 95.2 fL (80.0-100.0); Mean Platelet Volume 9.7; Monocytes # (A) 1.1 k/uL (0-1.0); Monocytes % (A) 7 %; Neutrophils # (A) 13.9 k/uL (1.3-7.7); Neutrophils % (A) 85 %; Platelet Count 151 k/uL (150-450); RDW 11.8 % (11.5-15.5); WBC 16.3 k/uL (3.8-10.6)
[2022-09-27 04:34] LABS: HGB 13.8 gm/dL (13.0-17.5)
[2022-09-27] MEDS: DEXTROSE 5%-0.45% NACL 1,000 ML IV SCH ×2 (04:59→13:39)
[2022-09-27] MEDS: TAMSULOSIN 0.4 MG CAP.ER.24H PO SCH (08:19)
[2022-09-27] MEDS: CALCIUM CARBONATE 500 MG CHEWABLE PO PRN ×2 (10:30→19:53)
[2022-09-27] MEDS: HYDROmorphone PCA 10 MG/50 ML BAG IV PRN ×2 (11:14→20:16)
--- NOTE | 2022-09-27 12:35 | P.PN ---
Subjective Progress Note Date: 09/27/22 Principal diagnosis: POD #1, s/p Right PCNL Patient reports right flank discomfort and swelling. He has 2 nephrostomy tubes which were not draining overnight but have started draining this morning. He voided several hundred mL this morning. He denies chest pain and dyspnea. Objective - Vital Signs Vital signs: Vital Signs Temp 98.0 F 09/27/22 03:15 Pulse 64 09/27/22 03:15 Resp 18 09/27/22 03:15 BP 115/65 09/27/22 03:15 Pulse Ox 98 09/27/22 03:15 FiO2 Intake & Output 09/26/22 09/26/22 09/27/22 06:59 18:59 06:59 Intake Total 2851 1000 Output Total 1100 Balance 1751 1000 Weight 95.8 kg Intake: IV 2851 Oral 1000 Output: Urine 800 Estimated Blood Loss 300 Other: Voiding Method Toilet Urinal # Voids 2 - Constitutional General appearance: Present: average body habitus, mild distress - Gastrointestinal Gastrointestinal Comment(s): Soft, non-distended. Swelling of the right flank wall is noted. The nephrosto my tubes are draining blood-tinged urine. - Psychiatric Psychiatric: Present: A&O x's 3 - Labs CBC & Chem 7: 09/27/22 03:39 Labs: Abnormal Lab Results - Last 24 Hours (Table) 09/27/22 Range/Units 03:39 WBC 16.3 H (3.8-10.6) k/uL Neutrophils # 13.9 H (1.3-7.7) k/uL Monocytes # 1.1 H (0-1.0) k/uL Assessment and Plan Assessment: Given that the nephrostomy tubes were not draining overnight (though they irrigated well), I suspect that the flank swelling is due to urinary extravasation. The patient has voided and the urine was blood-tinged. (1) Renal calculus Current Visit: No Status: Acute Code(s): N20.0 - CALCULUS OF KIDNEY SNOMED Code(s): 09220106 Plan: The [employer] dose will be increased, as the patient states that the Toradol helps but his pain isn't adequately controlled. Nephrostomy tube drainage will be maintained. A KUB x-ray will be obtained to evaluate for residual calculi.
--- NOTE | 2022-09-27 16:11 | XR ---
EXAMINATION TYPE: XR KUB DATE OF EXAM: 09/27/2022 Comparison: 09/26/2022 Clinical History: 57-year-old male Right renal calculus Findings: A right nephroureteral stent is present. Second nephrostomy catheter access also present. The distal aspect of the ureteral stent appears somewhat short probably in the distal right ureter. The extensiv e previous casting right renal calculi considerably improved. A 1 cm left renal stone remains. Centra l prosthetic calcifications in the midline lower pelvis. Posterior mid to lower lumbar fusion hardwar e. Impression: 1. Right-sided nephroureteral stent. An additional second right-sided nephrostomy catheter noted. The ureteral stent appears short, tip probably in the distal right ureter. 2. Residual 1 cm stone in the left kidney.
[2022-09-27 16:46] LABS: African American GFR (CKD) 57 (>60 ml/min/1.73 sqM); Anion Gap 9 mmol/L; Blood Urea Nitrogen 28 mg/dL (9-20); Calcium 9.9 mg/dL (8.4-10.2); Carbon Dioxide 27 mmol/L (22-30); Chloride 96 mmol/L (98-107); Glucose 80 mg/dL (74-99); Non-African American GFR(CKD) 49 (>60 ml/min/1.73 sqM); Potassium 4.1 mmol/L (3.5-5.1); Sodium 132 mmol/L (137-145)
[2022-09-27 16:53] LABS: Basophils % (A) 0 %; Eosinophils # (A) 0.2 k/uL (0-0.7); Eosinophils % (A) 2 %; HCT 37.7 % (39.0-53.0); HGB 12.6 gm/dL (13.0-17.5); Lymphocytes # (A) 1.2 k/uL (1.0-4.8); Lymphocytes % (A) 12 %; MCH 31.8 pg (25.0-35.0); MCHC 33.4 g/dL (31.0-37.0); MCV 95.1 fL (80.0-100.0); Mean Platelet Volume 9.2; Monocytes # (A) 0.7 k/uL (0-1.0); Monocytes % (A) 8 %; Neutrophils # (A) 7.7 k/uL (1.3-7.7); Neutrophils % (A) 78 %; Platelet Count 122 k/uL (150-450); RBC 3.96 m/uL (4.30-5.90); RDW 11.8 % (11.5-15.5); WBC 9.9 k/uL (3.8-10.6)
[2022-09-28] MEDS: DEXTROSE 5%-0.45% NACL 1,000 ML IV SCH ×4 (03:19→23:48)
[2022-09-28] MEDS: HYDROmorphone PCA 10 MG/50 ML BAG IV PRN ×2 (04:54→11:49)
--- NOTE | 2022-09-28 07:35 | P.PN ---
Subjective Progress Note Date: 09/28/22 The patient is status post percutaneous nephrostolithotomy (large) 09/26/22. He is slowly recuperating. He is still having pain albeit a little better. The drains are draining. Objective - Vital Signs Vital signs: Vital Signs Temp 99.1 F 09/28/22 03:05 Pulse 94 09/28/22 03:05 Resp 16 09/28/22 03:05 BP 124/78 09/28/22 03:05 Pulse Ox 92 L 09/28/22 03:05 FiO2 Intake & Output 09/27/22 09/28/22 09/28/22 18:59 06:59 18:59 Intake Total 1000 Output Total 2540 520 Balance -2540 480 Intake: Intake, IV Titration 1000 Amount Dextrose 5%-0.45% NaCl 1, 1000 000 ml @ 100 mls/hr IV . Q10H [facility] Rx#:[id number] Output: Drainage 1065 520 Right Back 560 right back nephrostomy 175 205 tube #1 right back nephrostomy 330 315 tube #2 Urine 1475 Other: Voiding Method Urinal Urinal # Voids 1 - Genitourinary Genitourinary Comment(s): Clearing urine and both right nephrostomy tubes - Labs CBC & Chem 7: 09/27/22 16:07 09/27/22 16:07 Labs: Abnormal Lab Results - Last 24 Hours (Table) 09/27/22 09/27/22 Range/Units 16:07 16:07 RBC 3.96 L (4.30-5.90) m/uL Hgb 12.6 L (13.0-17.5) gm/dL Hct 37.7 L (39.0-53.0) % Plt Count 122 L (150-450) k/uL Sodium 132 L (137-145) mmol/L Chloride 96 L (98-107) mmol/L BUN 28 H (9-20) mg/dL Creatinine 1.53 H (0.66-1.25) mg/dL Assessment and Plan Assessment: Impression: Status post percutaneous nephrostolithotomy (large) (right). Patient has 1 small 8 mm fragment retained on the right side as well as a 10 mm fragment on the left side. His pain is improving. Plan: Plan: We will observe the patient in the 24 hours in hospital. a lengthy discussion about all the treatment options for both the retained fragment on the right as well as the left renal stone . The plan at this point in time after deliberating on all the options is to have the patient to the office next week for nephrostomy tube removal. I will do elective shockwave therapy to the retained fragment on the right at a later date as well as the left renal stone. He also need a repeat metabolic evaluation for his rapid formation of stones. T his has been discussed and agreed upon by the patient.
[2022-09-28] MEDS: KETOROLAC 15 MG/ML 1 ML VIAL IVP PRN ×2 (07:58→16:49)
[2022-09-28] MEDS: TAMSULOSIN 0.4 MG CAP.ER.24H PO SCH (07:59)
[2022-09-28 08:39] LABS: Basophils # (A) 0.06 X 10*3/uL (0.00-0.10); Basophils % (A) 0.6 %; Eosinophils # (A) 0.29 X 10*3/uL (0.04-0.35); Eosinophils % (A) 2.9 %; HCT 33.4 % (39.6-50.0); HGB 10.7 g/dL (13.0-17.0); Immature Grans, Automated 0.4 %; Lymphocytes # (A) 1.25 X 10*3/uL (0.90-5.00); Lymphocytes % (A) 12.4 %; MCH 30.3 pg (27.0-32.0); MCV 94.6 fL (80.0-97.0); Monocytes # (A) 1.14 X 10*3/uL (0.20-1.00); Monocytes % (A) 11.3 %; NRBC Per 100 WBC 0 /100 WBCS (0.0-0.0); Neutrophils # (A) 7.28 X 10*3/uL (1.80-7.70); Neutrophils % (A) 72.4 %; Platelet Count 116 X 10*3/uL (140-440); RBC 3.53 X 10*6/uL (4.40-5.60); RDW 11.8 % (11.5-14.5); WBC 10.06 X 10*3/uL (4.50-10.00)
[2022-09-29] MEDS: DEXTROSE 5%-0.45% NACL 1,000 ML IV SCH (02:14)
[2022-09-29] MEDS: HYDROmorphone PCA 10 MG/50 ML BAG IV PRN (02:30)
[2022-09-29 08:26] VITALS: RESP 14
[2022-09-29] MEDS: TAMSULOSIN 0.4 MG CAP.ER.24H PO SCH (08:32)
--- NOTE | 2022-09-29 10:56 | P.DS ---
Providers Date of admission: 09/28/22 09:52 Expected date of discharge: 09/29/22 Attending physician: Henok Duarte Primary care physician: Jorge Trejo - Discharge Diagnosis(es) (1) Renal calculus Current Visit: No Status: Acute Hospital Course: On the day of admission, the patient underwent a right percutaneous nephrolithotomy. The first postoperative night, he experienced significant pain and the nephrostomy tubes were not draining, though they irrigated freely. The nephrostomy tubes began draining the morning following surgery, and the patient was voiding without difficulty at that time. Swelling of the right flank subcutaneous tissues was noted, suggestive of urinary extravasation. The patient's condition gradually improved. He remained afebrile with stable vital signs. At the time of discharge, the right flank swelling was significantly diminished. The nephrostomy tubes were draining clear yellow urine, and he was voiding clear urine. His discomfort was controlled with analgesics. Procedures: Right percutaneous nephrolithotomy (PCNL) on 09/26/2022 Patient Condition at Discharge: Good Plan - Discharge Summary Discharge Rx Participant: No New Discharge Prescriptions: New HYDROcodone/APAP 10-325MG [[place] 10-325] 1 tab PO Q6HR PRN 3 Days #10 tab PRN Reason: Moderate To Severe Pain (4-10) No Action Cholecalciferol [Vitamin D3 (25 Mcg = 1000 Iu)] 50 mcg PO DAILY Discharge Medication List Cholecalciferol [Vitamin D3 (25 Mcg = 1000 Iu)] 50 mcg PO DAILY 10/06/21 [History] HYDROcodone/APAP 10-325MG [[place] 10-325] 1 tab PO Q6HR PRN 3 Days #10 tab 09/29/22 [Rx] Follow up Appointment(s)/Referral(s): Henok Duarte MD [STAFF PHYSICIAN] - 10/01/22 Activity/Diet/Wound Care/Special Instructions: Discharge home with both nephrostomy tubes. Diet as tolerated. Drink plenty of fluids. Avoid strenuous activity.
[2022-09-29] MEDS: KETOROLAC 15 MG/ML 1 ML VIAL IVP SCH ×2 (11:35→13:37)
[2022-09-29 14:27] VITALS: BP 118/83; PULSE 98; TEMP 98.2
== END 2022-09-29 14:36 | disposition home or self-care (01) ==
LOC: OR 10:09 → 5NMEDONC 17:47 → OR 09-28 09:52
PROVIDERS: ADMIT Urology; ATTEND Urology
DX: N20.0 Calculus of kidney (principal); M43.16 Spondylolisthesis, lumbar region; M51.16 Intervertebral disc disorders with radiculopathy, lumbar region; Z98.890 Other specified postprocedural states; F17.200 Nicotine dependence, unspecified, uncomplicated; Z80.1 Family history of malignant neoplasm of trachea, bronchus and lung; F40.240 Claustrophobia
CPT/HCPCS: 86900; 86901; 80048; 85025 ×2; 86850; 82365; 50432; 74018 ×2; 50081; G0378 ×2; C2628; C1769 ×3; C1894; C1729; J2250; J0330; J1100; J2710; J0690; J2405; J3010; J1170 ×6; J1885 ×4; J2370; J2704; Q9967; J2001

== ENCOUNTER 2022-09-30 11:43 | Inpatient (IN) | payer OTHER ==
[2022-09-30] MEDS ORDERED: SODIUM CHLORIDE 0.9% 1,000 ML IV STA (12:13)
[2022-09-30] MEDS ORDERED: KETOROLAC 15 MG/ML 1 ML VIAL IVP STA (12:20)
[2022-09-30] MEDS ORDERED: ONDANSETRON 4 MG/2 ML VIAL IVP STA (12:36)
[2022-09-30 12:51] LABS: Basophils % (A) 0 %; Eosinophils # (A) 0.3 k/uL (0-0.7); Eosinophils % (A) 3 %; HCT 35.9 % (39.0-53.0); HGB 12.3 gm/dL (13.0-17.5); Lymphocytes # (A) 0.7 k/uL (1.0-4.8); Lymphocytes % (A) 7 %; MCHC 34.2 g/dL (31.0-37.0); MCV 90.4 fL (80.0-100.0); Monocytes # (A) 0.8 k/uL (0-1.0); Monocytes % (A) 7 %; Neutrophils # (A) 9.4 k/uL (1.3-7.7); Neutrophils % (A) 82 %; Platelet Count 164 k/uL (150-450); RBC 3.96 m/uL (4.30-5.90); RDW 11.9 % (11.5-15.5); WBC 11.5 k/uL (3.8-10.6)
[2022-09-30] MEDS ORDERED: HYDROmorphone 0.5 MG/0.5 ML SYRINGE IVP STA ×2 (12:51→13:31)
[2022-09-30 13:00] LABS: ALT 58 U/L (4-49); African American GFR (CKD) >90 (>60 ml/min/1.73 sqM); Albumin 3.5 g/dL (3.5-5.0); Anion Gap 7 mmol/L; Blood Urea Nitrogen 14 mg/dL (9-20); Calcium 9.4 mg/dL (8.4-10.2); Carbon Dioxide 21 mmol/L (22-30); Chloride 105 mmol/L (98-107); Glucose 96 mg/dL (74-99); Non-African American GFR(CKD) 88 (>60 ml/min/1.73 sqM); Sodium 133 mmol/L (137-145); Total Bilirubin 1.2 mg/dL (0.2-1.3); Total Protein 5.8 g/dL (6.3-8.2)
[2022-09-30 13:10] LABS: AST 123 U/L (17-59); Alkaline Phosphatase 73 U/L (38-126); Potassium 4.6 mmol/L (3.5-5.1)
[2022-09-30] MEDS ORDERED: HYDROmorphone 0.5 MG/0.5 ML SYRINGE IVP PRN (13:30)
[2022-09-30] MEDS ORDERED: ONDANSETRON 4 MG/2 ML VIAL IVP PRN (13:30)
[2022-09-30] MEDS ORDERED: NALOXONE 0.4 MG/ML 1 ML VIAL IV PRN (13:32)
[2022-09-30] MEDS ORDERED: SODIUM CHLORIDE 0.9% 1,000 ML IV SCH (13:45)
[2022-09-30 13:53] LABS: Amorphous Sediment,Urine Rare /hpf; Appearance,Urine Clear (Clear); Bilirubin,Urine Negative (Negative); Blood,Urine Small (Negative); Color,Urine Yellow; Glucose,Urine (UA) Negative (Negative); Ketones,Urine 2+ (Negative); Leukocyte Esterase,Urine Trace (Negative); Mucus,Urine Rare /hpf; Nitrite,Urine Negative (Negative); PH, Urine 6.5 (5.0-8.0); Protein,Urine Trace (Negative); RBC,Urine 40 /hpf (0-5); Specific Gravity,Urine 1.015 (1.001-1.035); WBC,Urine 5 /hpf (0-5)
--- NOTE | 2022-09-30 14:27 | ED ---
General Adult HPI - General Chief complaint: Recheck/Abnormal Lab/Rx Stated complaint: kidney swelling Time Seen by Provider: 09/30/22 12:12 Source: patient Mode of arrival: ambulatory Limitations: no limitations - History of Present Illness Initial comments: Patient is a 57-year-old male who presents to the emergency department for right flank pain. Patient had a right percutaneous nephrolithotomy and lithotripsy with Dr. Duarte on 09/26. He was discharged yesterday with [place]. Patient presents for intractable right flank pain. States he feels like it is "on fire." States the drains have been draining into the bag patient he has emptied it twice today. He reports nausea without vomiting. No fever or chills. No trouble urinating, burning with urination. Patient does admit to blood in the urine. He also reports lower extremity swelling. No pain or weakness of the lower extremities. No chest pain or shortness of breath. No history of heart failure. - Related Data Home Medications Medication Instructions Recorded Confirmed Cholecalciferol [Vitamin D3 (25 25 mcg PO DAILY 10/06/21 09/30/22 Mcg = 1000 Iu)] Previous Rx's Medication Instructions Recorded HYDROcodone/APAP 10-325MG [[place] 1 tab PO Q6HR PRN 3 Days #10 tab 09/29/22 10-325] Allergies Allergy/AdvReac Type Severity Reaction Status Date / Time No Known Allergies Allergy Verified 09/30/22 13:49 Review of Systems ROS Statement: Those systems with pertinent positive or pertinent negative responses have been documented in the HPI. ROS Other: All systems not noted in ROS Statement are negative. Past Medical History Past Medical History: Renal Disease Additional Past Medical History / Comment(s): kidney stones, herniated/slipped disk, SPONDYLOLISTHESIS, DDD, low back pain. History of Any Multi-Drug Resistant Organisms: None Reported Past Surgical History: Back Surgery Additional Past Surgical History / Comment(s): Lithotripsy, Kidney stone re moval, ureter stent, COLONOSCOPY, nephrostomy tube Past Anesthesia/Blood Transfusion Reactions: No Reported Reaction Additional Past Anesthesia/Blood Transfusion Reaction / Comment(s): claustrophobia Past Psychological History: No Psychological Hx Reported Smoking Status: Current every day smoker Past Alcohol Use History: None Reported Past Drug Use History: Marijuana - Past Family History Mother Family Medical History: Cancer Additional Family Medical History / Comment(s): LUNG CANCER- SMOKER. General Exam Limitations: no limitations General appearance: alert, in distress (pain ) Head exam: Present: atraumatic, normocephalic, normal inspection Respiratory exam: Present: normal lung sounds bilaterally. Absent: respiratory distress, wheezes, rales, rhonchi, stridor Cardiovascular Exam: Present: regular rate, normal rhythm, normal heart sounds. Absent: systolic murmur, diastolic murmur, rubs, gallop, clicks GI/Abdominal exam: Present: soft, normal bowel sounds. Absent: distended, tenderness, guarding, rebound, rigid Extremities exam: Present: full ROM, normal capillary refill, pedal edema (mild, non pitting). Absent: normal inspection, calf tenderness Back exam: Present: CVA tenderness (R) (significant with mild swelling. incisions are minimally erythematous no drainage ). Absent: CVA tenderness (L) Neurological exam: Present: alert, oriented X3, CN II-XII intact Psychiatric exam: Present: normal affect, normal mood Skin exam: Present: warm, dry, intact, normal color. Absent: rash Course Vital Signs 09/30/22 12:03 Temperature 98.5 F Pulse Rate 106 H Respiratory 22 Rate Blood Pressure 120/73 O2 Sat by Pulse 95 Oximetry Medical Decision Making - Medical Decision Making Was pt. sent in by a medical professional or institution (, PA, BUTADIENE COMPRESSOR OPERATOR, urgent care, hospital, or fci...) When possible be specific @ -No Did you speak to anyone other than the patient for history (EMS, parent, family, police, friend...)? What history was obtained from this source @ -No Did you review nursing and triage notes (agree or disagree)? Why? @ -I reviewed and agree with nursing and triage notes Were old charts reviewed (outside hosp., previous admission, EMS record, old EKG, old radiological studies, urgent care reports/EKG's, fci records)? Report findings @ -No old charts were reviewed Differential Diagnosis (chest pain, altered mental status, abdominal pain women, abdominal pain men, vaginal bleeding, weakness, fever, dyspnea, syncope, headache, dizziness, GI bleed, back pain, seizure, CVA, palpatations, mental health)? @ -Differential Abdominal Pain Men: Appendicitis, cholecystitis, diverticulosis, ischemic bowel, pancreatitis, hepat itis, UTI, gastroenteritis, AAA, incarcerated hernia, bowel obstruction, constipation, inflammatory bowel, hepatitis, peptic ulcer disease, splenic infarction, perforated viscus, testicular torsion, this is not meant to be an all-inclusive list EKG interpreted by me (3pts min.). @ -As above X-rays interpreted by me (1pt min.). @ -None done CT interpreted by me (1pt min.). @ -None done U/S interpreted by me (1pt. min.). @ -None done What testing was considered but not performed or refused? (CT, X-rays, U/S, labs)? Why? @ -None What meds were considered but not given or refused? Why? @ -Ordered Toradol or patient declined he is demanding Dilaudid Did you discuss the management of the patient with other professionals (professionals i.e. , PA, BUTADIENE COMPRESSOR OPERATOR, lab, RT, psych nurse, mental health social worker, party host/hostess, teacher, aoc plans intelligence officer chief, caser shoe parts)? Give summary @ -No Was smoking cessation discussed for >3mins.? @ -No Was critical care preformed (if so, how long)? @ -No Were there social determinants of health that impacted care today? How? (Ho melessness, low income, unemployed, alcoholism, drug addiction, transportation, low edu. Level, literacy, decrease access to med. care, prison, rehab)? @ -No Was there de-escalation of care discussed even if they declined (Discuss DNR or withdrawal of care, Hospice)? DNR status @ -No What co-morbidities impacted this encounter? (DM, HTN, Smoking, COPD, CAD, Cancer, CVA, ARF, Chemo, Hep., AIDS, mental health diagnosis, sleep apnea, morbid obesity)? @ -None Was patient admitted / discharged? Hospital course, mention meds given and route, prescriptions, significant lab abnormalities, going to OR and other pertinent info. @ -Patient presenting with intractable right flank pain. Patient appears to be in pain. He is hemodynamically stable, afebrile. There is mild right flank swelling as well as mild lower extremity edema, nonpitting. Laboratory studies obtained and are relatively unremarkable. There is mild leukocytosis at 11.5. Kidney function is normal. Patient poorly controlled with Dilaudid. Case discussed with Dr. Urban patient be admitted duration for further evaluation and pain control. Undiagnosed new problem with uncertain prognosis? @ -No Drug Therapy requiring intensive monitoring for toxicity (Heparin, Nitro, Insulin, Cardizem)? @ -No Were any procedures done? @ -[No] Diagnosis/symptom? @ right flank pain Acute, or Chronic, or Acute on Chronic? @ -acute Uncomplicated (without systemic symptoms) or Complicated (systemic symptoms)? @ -uncomplicated Side effects of treatment? @ -[No] Exacerbation, Progression, or Severe Exacerbation? @ -[No] Poses a threat to life or bodily function? How? (Chest pain, [place], [place], pneumonia, PE, COPD, DKA, ARF, appy, cholecystitis, CVA, Diverticulitis, Homicidal, Suicidal, threat to staff... and all critical care pts) @ -[No] Dr. Rivera is my attending - Lab Data Result diagrams: 09/30/22 12:35 09/30/22 12:35 Lab Results 09/30/22 09/30/22 09/30/22 Range/Units 12:35 12:35 12:35 WBC 11.5 H (3.8-10.6) k/uL RBC 3.96 L (4.30-5.90) m/uL Hgb 12.3 L (13.0-17.5) gm/dL Hct 35.9 L (39.0-53.0) % MCV 90.4 (80.0-100.0) fL MCH 31.0 (25.0-35.0) pg MCHC 34.2 (31.0-37.0) g/dL RDW 11.9 (11.5-15.5) % Plt Count 164 (150-450) k/uL MPV 10.0 Neutrophils % 82 % Lymphocytes % 7 % Monocytes % 7 % Eosinophils % 3 % Basophils % 0 % Neutrophils # 9.4 H (1.3-7.7) k/uL Lymphocytes # 0.7 L (1.0-4.8) k/uL Monocytes # 0.8 (0-1.0) k/uL Eosinophils # 0.3 (0-0.7) k/uL Basophils # 0.0 (0-0.2) k/uL Sodium 133 L (137-145) mmol/L Potassium 4.6 (3.5-5.1) mmol/L Chloride 105 (98-107) mmol/L Carbon Dioxide 21 L (22-30) mmol/L Anion Gap 7 mmol/L BUN 14 (9-20) mg/dL Creatinine 0.95 (0.66-1.25) mg/dL Est GFR (CKD-EPI)AfAm >90 (>60 ml/min/1.73 sqM) Est GFR (CKD-EPI)NonAf 88 (>60 ml/min/1.73 sqM) Glucose 96 (74-99) mg/dL Plasma Lactic Acid [place] 0.9 (0.7-2.0) mmol/L Calcium 9.4 (8.4-10.2) mg/dL Total Bilirubin 1.2 (0.2-1.3) mg/dL AST 123 H (17-59) U/L ALT 58 H (4-49) U/L Alkaline Phosphatase 73 (38-126) U/L Total Protein 5.8 L (6.3-8.2) g/dL Albumin 3.5 (3.5-5.0) g/dL Urine Color Urine Appearance (Clear) Urine pH (5.0-8.0) Ur Specific [place] (1.001-1.035) Urine Protein (Negative) Urine Glucose (UA) (Negative) Urine Ketones (Negative) Urine Blood (Negative) Urine Nitrite (Negative) Urine Bilirubin (Negative) Urine Urobilinogen (<2.0) mg/dL Ur Leukocyte Esterase (Negative) Urine RBC (0-5) /hpf Urine WBC (0-5) /hpf Amorphous Sediment (None) /hpf Urine Mucus (None) /hpf 09/30/22 Range/Units 13:25 WBC (3.8-10.6) k/uL RBC (4.30-5.90) m/uL Hgb (13.0-17.5) gm/dL Hct (39.0-53.0) % MCV (80.0-100.0) fL MCH (25.0-35.0) pg MCHC (31.0-37.0) g/dL RDW (11.5-15.5) % Plt Count (150-450) k/uL MPV Neutrophils % % Lymphocytes % % Monocytes % % Eosinophils % % Basophils % % Neutrophils # (1.3-7.7) k/uL Lymphocytes # (1.0-4.8) k/uL Monocytes # (0-1.0) k/uL Eosinophils # (0-0.7) k/uL Basophils # (0-0.2) k/uL Sodium (137-145) mmol/L Potassium (3.5-5.1) mmol/L Chloride (98-107) mmol/L Carbon Dioxide (22-30) mmol/L Anion Gap mmol/L BUN (9-20) mg/dL Creatinine (0.66-1.25) mg/dL Est GFR (CKD-EPI)AfAm (>60 ml/min/1.73 sqM) Est GFR (CKD-EPI)NonAf (>60 ml/min/1.73 sqM) Glucose (74-99) mg/dL Plasma Lactic Acid [place] (0.7-2.0) mmol/L Calcium (8.4-10.2) mg/dL Total Bilirubin (0.2-1.3) mg/dL AST (17-59) U/L ALT (4-49) U/L Alkaline Phosphatase (38-126) U/L Total Protein (6.3-8.2) g/dL Albumin (3.5-5.0) g/dL Urine Color Yellow Urine Appearance Clear (Clear) Urine pH 6.5 (5.0-8.0) Ur Specific [place] 1.015 (1.001-1.035) Urine Protein Trace H (Negative) Urine Glucose (UA) Negative (Negative) Urine Ketones 2+ H (Negative) Urine Blood Small H (Negative) Urine Nitrite Negative (Negative) Urine Bilirubin Negative (Negative) Urine Urobilinogen 2.0 (<2.0) mg/dL Ur Leukocyte Esterase Trace H (Negative) Urine RBC 40 H (0-5) /hpf Urine WBC 5 (0-5) /hpf Amorphous Sediment Rare H (None) /hpf Urine Mucus Rare H (None) /hpf Disposition Clinical Impression: Right flank pain Disposition: ADMITTED IP TO THIS [facility] Condition: Fair
[2022-09-30] MEDS: HYDROmorphone 1 MG/ML 1 ML SYRINGE IVP PRN ×3 (16:37→22:59)
[2022-09-30] MEDS: KETOROLAC 15 MG/ML 1 ML VIAL IVP SCH ×2 (18:09→22:59)
[2022-09-30] MEDS: SODIUM CHLORIDE 0.9% 1,000 ML IV SCH (18:10)
[2022-09-30] MEDS ORDERED: MAGNESIUM HYDROXIDE 2,400 MG/10 ML CUP PO PRN (20:53)
--- NOTE | 2022-09-30 21:01 | P.GSHP ---
History of Present Illness H&P Date: 09/30/22 Chief Complaint: Right flank pain and swelling The patient is a 57-year-old white male with recurrent urolithiasis. He underwent a complicated right percutaneous nephrolithotomy in September 26, 2022. He was discharged home yesterday but returned to the ER today with complaints of increased right flank pain and swelling, associated with lower extremity edema. He states that his last bowel movement was 2 days ago. He reports a headache. - Constitutional Constitutional: Denies chills, Denies fever - Gastrointestinal Gastrointestinal: Reports nausea - Genitourinary (Male) Genitourinary: Reports flank pain, Reports hematuria, Reports kidney stones, Denies dysuria Past Medical History Past Medical History: Renal Disease Additional Past Medical History / Comment(s): kidney stones, herniated/slipped disk, SPONDYLOLISTHESIS, DDD, low back pain. History of Any Multi-Drug Resistant Organisms: None Reported Past Surgical History: Back Surgery Additional Past Surgical History / Comment(s): Lithotripsy, Kidney stone r emoval, ureter stent, COLONOSCOPY, nephrostomy tube Past Anesthesia/Blood Transfusion Reactions: No Reported Reaction Additional Past Anesthesia/Blood Transfusion Reaction / Comment(s): claustrophobia Past Psychological History: No Psychological Hx Reported Additional Psychological History / Comment(s): Pt resides with his significant other. He is independent. He uses no assistive device. He drives. 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 Smoking Status: Current every day smoker Past Alcohol Use History: None Reported Additional Past Alcohol Use History / Comment(s): Pt started smoking about age 37 or 38. He was at one time up to 2 ppd but is quitiing after this admission and is down to smoking 4-5 cig per day before this admit. Past Drug Use History: Marijuana Additional Drug Use History / Comment(s): Patient states that he smokes marjuana occasionally - Past Family History Mother Family Medical History: Cancer Additional Family Medical History / Comment(s): LUNG CANCER- SMOKER. Medications and Allergies Home Medications Medication Instructions Recorded Confirmed Type Cholecalciferol [Vitamin D3 (25 25 mcg PO DAILY 10/06/21 09/30/22 History Mcg = 1000 Iu)] HYDROcodone/APAP 10-325MG [Brady 1 tab PO Q6HR PRN 3 Days #10 tab 09/29/22 09/30/22 Rx 10-325] Allergies Allergy/AdvReac Type Severity Reaction Status Date / Time No Known Allergies Allergy Verified 09/30/22 13:49 Surgical - Exam Vital Signs Temp Pulse Resp BP Pulse Ox 98.5 F 106 H 22 120/73 95 09/30/22 12:03 09/30/22 12:03 09/30/22 12:03 09/30/22 12:03 09/30/22 12:03 - General well developed, well nourished, no distress - Respiratory normal respiratory effort - Abdomen Soft, mild right flank swelling (subcutaneous) with mild tenderness, no guarding or rebound. - Musculoskeletal Bilateral lower extremity edema, R>L. - Psychiatric oriented to time, oriented to person, oriented to place, speech is normal, memory intact Results - Labs 09/30/22 12:35 09/30/22 12:35 Abnormal Lab Results - Last 24 Hours (Table) 09/30/22 09/30/22 09/30/22 Range/Units 12:35 12:35 13:25 WBC 11.5 H (3.8-10.6) k/uL RBC 3.96 L (4.30-5.90) m/uL Hgb 12.3 L (13.0-17.5) gm/dL Hct 35.9 L (39.0-53.0) % Neutrophils # 9.4 H (1.3-7.7) k/uL Lymphocytes # 0.7 L (1.0-4.8) k/uL Sodium 133 L (137-145) mmol/L Carbon Dioxide 21 L (22-30) mmol/L AST 123 H (17-59) U/L ALT 58 H (4-49) U/L Total Protein 5.8 L (6.3-8.2) g/dL Urine Protein Trace H (Negative) Urine Ketones 2+ H (Negative) Urine Blood Small H (Negative) Ur Leukocyte Esterase Trace H (Negative) Urine RBC 40 H (0-5) /hpf Amorphous Sediment Rare H (None) /hpf Urine Mucus Rare H (None) /hpf Diabetes panel 09/30/22 Range/Units 12:35 Sodium 133 L (137-145) mmol/L Potassium 4.6 (3.5-5.1) mmol/L Chloride 105 (98-107) mmol/L Carbon Dioxide 21 L (22-30) mmol/L BUN 14 (9-20) mg/dL Creatinine 0.95 (0.66-1.25) mg/dL Glucose 96 (74-99) mg/dL Calcium 9.4 (8.4-10.2) mg/dL AST 123 H (17-59) U/L ALT 58 H (4-49) U/L Alkaline Phosphatase 73 (38-126) U/L Total Protein 5.8 L (6.3-8.2) g/dL Albumin 3.5 (3.5-5.0) g/dL Calcium panel 09/30/22 Range/Units 12:35 Calcium 9.4 (8.4-10.2) mg/dL Albumin 3.5 (3.5-5.0) g/dL Pituitary panel 09/30/22 Range/Units 12:35 Sodium 133 L (137-145) mmol/L Potassium 4.6 (3.5-5.1) mmol/L Chloride 105 (98-107) mmol/L Carbon Dioxide 21 L (22-30) mmol/L BUN 14 (9-20) mg/dL Creatinine 0.95 (0.66-1.25) mg/dL Glucose 96 (74-99) mg/dL Calcium 9.4 (8.4-10.2) mg/dL Adrenal panel 09/30/22 Range/Units 12:35 Sodium 133 L (137-145) mmol/L Potassium 4.6 (3.5-5.1) mmol/L Chloride 105 (98-107) mmol/L Carbon Dioxide 21 L (22-30) mmol/L BUN 14 (9-20) mg/dL Creatinine 0.95 (0.66-1.25) mg/dL Glucose 96 (74-99) mg/dL Calcium 9.4 (8.4-10.2) mg/dL Total Bilirubin 1.2 (0.2-1.3) mg/dL AST 123 H (17-59) U/L ALT 58 H (4-49) U/L Alkaline Phosphatase 73 (38-126) U/L Total Protein 5.8 L (6.3-8.2) g/dL Albumin 3.5 (3.5-5.0) g/dL Assessment and Plan (1) Renal calculus Current Visit: No Status: Acute Code(s): N20.0 - CALCULUS OF KIDNEY SNOMED Code(s): 07770678 Plan: The patient is admitted and is receiving parenteral analgesics. Colace and milk of magnesia are ordered for constipation, and acetaminophen for his headache. He states that it is difficult to elevate his legs because of the nephrostomy tubes. I will discuss the nephrostomy tube management with Dr. Duarte.
[2022-09-30] MEDS: DOCUSATE 100 MG CAP PO SCH (21:56)
[2022-09-30] MEDS: ACETAMINOPHEN TAB 500 MG TAB PO PRN (21:57)
[2022-10-01] MEDS: HYDROmorphone 1 MG/ML 1 ML SYRINGE IVP PRN ×8 (02:09→23:43)
[2022-10-01] MEDS: KETOROLAC 15 MG/ML 1 ML VIAL IVP SCH ×4 (05:21→23:44)
[2022-10-01] MEDS: DOCUSATE 100 MG CAP PO SCH ×2 (08:18→20:12)
--- NOTE | 2022-10-01 08:59 | CT ---
EXAMINATION TYPE: CT abdomen pelvis wo con DATE OF EXAM: 10/01/2022 COMPARISON: 11/09/2021 HISTORY: Right sided flank pain post percutaneous nephrolithotomy. CT DLP: 857.9 mGycm Examination of the solid and hollow viscera is limited given the lack of contrast. FINDINGS: LUNG BASES: No evidence for nodule. No evidence for infiltrate. LIVER/GB: The gallbladder is unremarkable. No space-occupying hepatic lesion. PANCREAS: No pancreatic mass identified. No inflammatory process seen. SPLEEN: No evidence for splenomegaly. No intrasplenic lesions seen. ADRENALS: No adrenal nodules identified. No evidence for thickening. KIDNEYS: 2 right-sided percutaneous nephrostomy catheters are noted to be in place. Ureteral catheter component also noted. Small amount of postprocedural air seen adjacent to the right kidney. 7.6 mm c alculus lower pole right kidney. 2.5 mm calculus lower pole right kidney medially. 3 mm calculi lower pole right kidney numbering 2 or 3 in total. 2.3 mm calculus adjacent to the mid right ureteral sten t. No additional calculi seen along the course of the ureteral stent. No salma hydronephrosis seen. C alculus lower pole left kidney measuring 8.4 mm. Multiple prostate calcifications seen. BOWEL: Appendix has a normal appearance. No evidence of bowel obstruction. No inflammatory process. Lymph nodes: No evidence for adenopathy greater than 1 cm. Abdominal aorta: Atheromatous changes seen. No evidence for aneurysm. Genital organs: No significant abnormality. Other: Postoperative changes of laminectomy and fusion lower lumbar spine. IMPRESSION: 1. Postprocedural percutaneous nephrostomy changes noted without evidence for abnormal collection. Sm all amount of post procedural air seen adjacent to the right kidney with minimal stranding. 2. Nonobstructing calculi seen bilaterally. There is also a 2.3 mm calculus adjacent to the mid right ureteral stent. No salma hydronephrosis present.
--- NOTE | 2022-10-01 13:07 | P.PN ---
Subjective Progress Note Date: 10/01/22 No acute overnight event, still having flank pain. CT showed some residual stones but no evidence of hematoma or any renal abnormality Objective - Vital Signs Vital signs: Vital Signs Temp 98.2 F 10/01/22 07:00 Pulse 95 10/01/22 07:00 Resp 16 10/01/22 07:00 BP 128/82 10/01/22 07:00 Pulse Ox 99 10/01/22 07:00 FiO2 Intake & Output 09/30/22 10/01/22 10/01/22 18:59 06:59 18:59 Intake Total 480 600 Balance 480 600 Weight 95.708 kg Intake: Oral 480 600 Other: Voiding Method Toilet Toilet Toilet # Voids 3 - Psychiatric Psychiatric: Present: A&O x's 3 - Labs CBC & Chem 7: 09/30/22 12:35 09/30/22 12:35 Labs: Abnormal Lab Results - Last 24 Hours (Table) 09/30/22 09/30/22 Range/Units 12:35 13:25 Sodium 133 L (137-145) mmol/L Carbon Dioxide 21 L (22-30) mmol/L AST 123 H (17-59) U/L ALT 58 H (4-49) U/L Total Protein 5.8 L (6.3-8.2) g/dL Urine Protein Trace H (Negative) Urine Ketones 2+ H (Negative) Urine Blood Small H (Negative) Ur Leukocyte Esterase Trace H (Negative) Urine RBC 40 H (0-5) /hpf Amorphous Sediment Rare H (None) /hpf Urine Mucus Rare H (None) /hpf Assessment and Plan Assessment: S/P right PCNL, compliacated case,having significant spasm and pain secondary to nephrostomy tube -20 Fr larger PCN was removed -pain control -will keep [address]
[2022-10-01] MEDS: SODIUM CHLORIDE 0.9% 1,000 ML IV SCH ×2 (15:23→21:03)
--- NOTE | 2022-10-01 18:22 | XR ---
EXAMINATION TYPE: XR abdomen 1V DATE OF EXAM: 10/01/2022 COMPARISON: 09/27/2022 INDICATION: Tenderness TECHNIQUE: Single view abdomen frontal supine view FINDINGS: There is a normal bowel gas pattern. Psoas margins are normal. No organomegaly is present. Postsurgical changes are present L4-S1. Catheter is present on the right may be near a 0.2 cm right r enal stone. A punctate renal stone appears to be at the inferior pole right kidney. There is a 1.1 cm renal stone at the inferior pole left kidney. IMPRESSION: 1. Bilateral renal stones. 2. Right side catheter may be adjacent to the larger a renal stone.
[2022-10-01] MEDS: ACETAMINOPHEN TAB 500 MG TAB PO PRN (20:12)
--- NOTE | 2022-10-01 22:04 | XR ---
EXAMINATION TYPE: XR chest 2V DATE OF EXAM: 10/01/2022 COMPARISON: 03/20/2016 INDICATION: Shortness of breath TECHNIQUE: Frontal and lateral views of the chest are obtained. FINDINGS: The heart size is normal. The pulmonary vasculature is normal. Patchy infiltrates or left upper and right upper lung thurston. Correlate for pneumonia. Follow-up is r ecommended.. IMPRESSION: 1. Bilateral lung consolidations upper lung thurston. Correlate for pneumonia. Follow-up is recommended .
[2022-10-02] MEDS: HYDROmorphone 1 MG/ML 1 ML SYRINGE IVP PRN ×6 (04:23→21:45)
[2022-10-02] MEDS: KETOROLAC 15 MG/ML 1 ML VIAL IVP SCH ×3 (06:06→18:40)
[2022-10-02] MEDS: DOCUSATE 100 MG CAP PO SCH ×2 (08:47→20:34)
[2022-10-02] MEDS: SODIUM CHLORIDE 0.9% 1,000 ML IV SCH (08:47)
[2022-10-02] MEDS ORDERED: HYDROcodone/APAP 10-325MG 1 EACH TAB PO PRN (09:46)
--- NOTE | 2022-10-02 11:28 | P.PN ---
Subjective Progress Note Date: 10/02/22 No acute overnight event, still having flank pain. Having cough, chest x-ray showed possible consolidation, internal medicine has been consulted. Objective - Vital Signs Vital signs: Vital Signs Temp 98.1 F 10/02/22 07:00 Pulse 86 10/02/22 07:00 Resp 17 10/02/22 07:00 BP 114/67 10/02/22 07:00 Pulse Ox 97 10/02/22 07:00 FiO2 Intake & Output 10/01/22 10/02/22 10/02/22 18:59 06:59 18:59 Intake Total 718 118 Balance 718 118 Intake: Oral 718 118 Other: Voiding Method Toilet Toilet Toilet # Voids 1 2 - Constitutional General appearance: Present: no acute distress - Psychiatric Psychiatric: Present: A&O x's 3 - Labs CBC & Chem 7: 09/30/22 12:35 09/30/22 12:35 Assessment and Plan Assessment: S/P right PCNL, compliacated case,having significant spasm and pain secondary to nephrostomy tube, larger nephrostomy tube was removed yesterday. No developing cough and possible consolidation on x-ray -pain control -8 Fr PCN was removed -Follow-up on internal medicine Recs
[2022-10-02] MEDS: AZITHROMYCIN 500 MG in SODIUM CHLORIDE 0.9% 250 ML IVPB SCH (13:29)
[2022-10-02] MEDS: ALBUTEROL NEBULIZED 2.5 MG/3 ML INHALATION SCH ×2 (16:15→21:18)
--- NOTE | 2022-10-02 20:56 | CONS ---
CONSULTATION REASON FOR CONSULTATION: Advice regarding back surgery and multiple medical issues, requested by Urology. HISTORY OF PRESENT ILLNESS: This is a 57-year-old gentleman with a past medical history of renal disease, who underwent a slip disk and back surgery, was admitted with flank pain. Chest x-ray showed possible consolidation. The patient underwent right percutaneous nephrolithotomy. There is no history of any fever, rigors, or chills at this time. The chest x-ray, which I reviewed personally showed evidence of upper lobe pneumonia, right more than the left. There is no history of any fever, rigors, or chills at this time. PAST MEDICAL HISTORY: Reviewed, include renal disease, DJD. MEDICATIONS: Home medications reviewed, ACS Clothing. The rest of the medications and rest of the chart is also reviewed. ALLERGIES: None. FAMILY HISTORY: History of lung cancer. SOCIAL HISTORY: History of smoking. REVIEW OF SYSTEMS: Fourteen-point review is negative except as mentioned earlier. PHYSICAL EXAMINATION: VITAL SIGNS: Pulse is 86, blood pressure 140/67, respirations 17. HEENT: Conjunctivae normal. NECK: No jugular venous distention. CARDIOVASCULAR: S1, S2 muffled. RESPIRATIONS: A few scattered rhonchi. ABDOMEN: Soft, nontender. BACK: Nephrostomy tube present. LEGS: No edema. NERVOUS SYSTEM: Nonfocal. LABORATORY DATA: Reviewed. White count is 7.5. Chest x-ray reviewed. ASSESSMENT: 1. Bilateral pneumonia, right more than the left. 2. Right percutaneous nephrostomy. 3. Significant pain. 4. Degenerative joint disease. 5. Increased WBC. 6. Hyponatremia. RECOMMENDATIONS AND DISCUSSION: This is a 57-year-old gentleman, presented with multiple complex medical issues. I would recommend broad-spectrum antibiotics, obtain cultures. We will repeat chest x- ray. I would also recommend a D-dimer and if D-dimer is positive, a CT angio of the chest. Check viral titers including COVID also. The prognosis guarded. We will closely follow with you. Further recommendations to follow. MMODL / IJN: [id number] /
[2022-10-03] MEDS: KETOROLAC 15 MG/ML 1 ML VIAL IVP SCH ×2 (00:45→05:29)
[2022-10-03] MEDS: HYDROmorphone 1 MG/ML 1 ML SYRINGE IVP PRN ×3 (00:45→08:48)
[2022-10-03 02:40] LABS: Mycoplasma IgG Antibody (EIA) 3.82 INDEX (<=0.90); Mycoplasma IgM Antibody 0.73 INDEX (<=0.90)
[2022-10-03] MEDS: ALBUTEROL NEBULIZED 2.5 MG/3 ML INHALATION SCH (07:33)
[2022-10-03] MEDS: DOCUSATE 100 MG CAP PO SCH (07:56)
[2022-10-03 08:07] VITALS: BP 121/74; PULSE 69; TEMP 98.2
[2022-10-03 09:00] LABS: African American GFR (CKD) 76.8 (60.0-200.0); Anion Gap 10.5 mmol/L (10.00-18.00); BUN/Creat Ratio 13.08 Ratio (12.00-20.00); Blood Urea Nitrogen 15.7 mg/dL (9.0-27.0); Calcium 9.6 mg/dL (8.7-10.3); Carbon Dioxide 22.5 mmol/L (20.0-27.5); Non-African American GFR(CKD) 66.3 (60.0-200.0); Potassium 4.6 mmol/L (3.5-5.5)
[2022-10-03] MEDS ORDERED: CHOLECALCIFEROL 25 MCG (1000 IU) TABLET PO SCH (09:00)
[2022-10-03 09:01] VITALS: RESP 18
[2022-10-03 09:02] LABS: Basophils # (A) 0.07 X 10*3/uL (0.00-0.10); Basophils % (A) 0.9 %; Eosinophils # (A) 0.56 X 10*3/uL (0.04-0.35); Eosinophils % (A) 6.9 %; HCT 34.5 % (39.6-50.0); HGB 11.4 g/dL (13.0-17.0); Immature Grans, Automated 0.5 %; Lymphocytes # (A) 1.18 X 10*3/uL (0.90-5.00); Lymphocytes % (A) 14.6 %; MCH 30.9 pg (27.0-32.0); MCV 93.5 fL (80.0-97.0); Mean Platelet Volume 12.2 fL (9.5-12.2); Monocytes # (A) 1.08 X 10*3/uL (0.20-1.00); Monocytes % (A) 13.4 %; NRBC Per 100 WBC 0 /100 WBCS (0.0-0.0); Neutrophils # (A) 5.14 X 10*3/uL (1.80-7.70); Neutrophils % (A) 63.7 %; Platelet Count 230 X 10*3/uL (140-440); RBC 3.69 X 10*6/uL (4.40-5.60); RDW 11.9 % (11.5-14.5); WBC 8.07 X 10*3/uL (4.50-10.00)
[2022-10-03] MEDS: AZITHROMYCIN 500 MG in SODIUM CHLORIDE 0.9% 250 ML IVPB SCH (10:23)
--- NOTE | 2022-10-03 10:50 | XR ---
EXAMINATION TYPE: XR chest 1V portable DATE OF EXAM: 10/03/2022 10:32 AM COMPARISON: Chest radiographs from 10/01/2022. TECHNIQUE: XR chest 1V portable Frontal view of the chest. CLINICAL INDICATION:Male, 57 years old with history of right flank pain; FINDINGS: Lungs/Pleura: Left upper lung airspace opacities and blunting of the left costophrenic angle. Bluntin g of the costophrenic angles increased from prior. Pulmonary vascularity: Unremarkable. Heart/mediastinum: Cardiomediastinal silhouette is unremarkable. Musculoskeletal: No acute osseous pathology. IMPRESSION: Left upper lobe airspace opacities with left pleural effusion, though pleural effusion is increase in size from prior. Correlate for pneumonia with parapneumonic effusion.
--- NOTE | 2022-10-03 12:23 | PN ---
PROGRESS NOTE DATE OF SERVICE: 10/03/2022 SUBJECTIVE: This is a 57-year-old gentleman admitted after urology procedure, had a chest x-ray which showed some pneumonia bilateral, possible interstitial pneumonia. The patient was given antibiotics so far. I have recommended D-dimer on further evaluation, but the patient is not willing to stay and the patient wants to go home BE. OBJECTIVE: VITAL SIGNS: Stable. CARDIOVASCULAR: S1, S2 are normal. RESPIRATORY: A few scattered rhonchi. ABDOMEN: Soft. NERVOUS SYSTEM: No focal deficits. LABORATORY DATA: Labs are reviewed. ASSESSMENT: 1. Bilateral pneumonia, improving with probably some left pleural effusion. 2. Right percutaneous nephrostomy. 3. Significant pain. 4. Degenerative joint disease. 5. Increased WBC. 6. Hyponatremia. DISCHARGE DISPOSITION: At this time, the patient is extremely keen on going home as mentioned earlier, so I have recommended to follow up with primary as well as with pulmonology and complete a course of antibiotics. See orders for further details. Otherwise, rest of the recommendations per Urology. Further recommendations to follow. Once again, the prognosis is guarded. The patient understands and agrees. MMODL / IJN: [id number] /
--- NOTE | 2022-10-03 21:13 | P.DS ---
Providers Date of admission: 10/03/22 07:56 Attending physician: Aram Urban Consults: 10/01/22 18:46 Consult Physician Routine Consulting Provider: Ricardo Mcneil Consult Reason/Comments: medical management Do you want consulting provider notified?: Yes Primary care physician: Jorge Trejo [facility] Course: This is a 57 yo male Admitted to the hospital with intractable following PCNL. Patient had two nephrostomy tubes, 20 Fr nephrostomy tube was removed on 10/01 and smaller caliber nephrostomy tube on 10/02. Patient had cough, undewent chest x-ray which showed possible consiladation. He was evaluated by internal medicine and deemed stable fo discharge. He was discharged home on 10/03. At time of discharge he was tolerating diet, ambulating and pain was controlled Patient Condition at Discharge: Fair Plan - Discharge Summary Discharge Rx Participant: Yes New Discharge Prescriptions: New cefUROXime axetiL [Ceftin] 500 mg PO BID 3 Days #6 tab Azithromycin [Zithromax] 500 mg PO DAILY 1 Days #4 tab Continue HYDROcodone/APAP 10-325MG [Carey 10-325] 1 tab PO Q6HR PRN 3 Days #10 tab PRN Reason: Moderate To Severe Pain (4-10) Cholecalciferol [Vitamin D3 (25 Mcg = 1000 Iu)] 25 mcg PO DAILY Discharge Medication List Cholecalciferol [Vitamin D3 (25 Mcg = 1000 Iu)] 25 mcg PO DAILY 10/06/21 [History] HYDROcodone/APAP 10-325MG [Carey 10-325] 1 tab PO Q6HR PRN 3 Days #10 tab 09/29/22 [Rx] Azithromycin [Zithromax] 500 mg PO DAILY 1 Days #4 tab 10/03/22 [Rx] cefUROXime axetiL [Ceftin] 500 mg PO BID 3 Days #6 tab 10/03/22 [Rx] Follow up Appointment(s)/Referral(s): Jorge Trejo III, MD [Primary Care Provider] - 1 Week Jodee Peguero MD [STAFF PHYSICIAN] - 1 Week (pt was informed of referral and to make an appointment ) Ambulatory/Diagnostic Orders: Complete Blood Count w/diff [LAB.AMB] Location: None Selected Patient Instructions/Handouts: How to Use an Incentive Spirometer (DC), Flank Pain (ED) Discharge Disposition: HOME SELF-CARE
== END 2022-10-03 11:10 | disposition home or self-care (01) | DRG 699 ==
LOC: EC 11:43 → 6NMEDSUR 13:33 → OBSVTOIN 10-03 07:56
PROVIDERS: ADMIT Urology; ATTEND Urology
DX: T83.84XA Pain due to genitourinary prosthetic devices, implants and grafts, initial encounter (principal); E87.1 Hypo-osmolality and hyponatremia; J84.9 Interstitial pulmonary disease, unspecified; M43.10 Spondylolisthesis, site unspecified; M19.90 Unspecified osteoarthritis, unspecified site; N20.0 Calculus of kidney; K59.00 Constipation, unspecified; R51.9 Headache, unspecified; F17.210 Nicotine dependence, cigarettes, uncomplicated; Z71.6 Tobacco abuse counseling; Z87.442 Personal history of urinary calculi; Y73.2 Prosthetic and other implants, materials and accessory gastroenterology and urology devices associated with adverse incidents
CPT/HCPCS: 36415; 71045; 71046; 74018; 74176; 80048; 80053; 81001; 83605; 85025; 86738; 87040; 96361; 96374; 96375; 96376; 99285

== ENCOUNTER → 2022-10-22 | Outpatient (CLI) | payer OTHER ==
--- NOTE | 2022-10-22 13:17 | XR ---
EXAMINATION TYPE: XR abdomen 1V DATE OF EXAM: 10/22/2022 HISTORY: N20.0 Comparison: 10/01/2022 Single KUB is submitted for interpretation. Findings: Right renal calculi: Multiple small calculi are seen within the right kidney measuring up to 4 to 5 m m. Right ureteral calculi: None Visualized. Left renal calculi: 1.5 cm calculus is noted in the region of the left renal pelvis. Left ureteral calculi: None Visualized. Pelvic calcifications: Multiple pelvic calcifications are noted which may in part reflect prostate c alcifications. Bowel gas pattern is unremarkable. No free air. No mass effects. IMPRESSION: 1. Nephrolithiasis as discussed.
== END | disposition home or self-care (01) ==
LOC: RADXRMAIN 12:25
PROVIDERS: ATTEND Urology
DX: N20.0 Calculus of kidney (principal)
CPT/HCPCS: 74018

== ENCOUNTER → 2022-11-16 | Outpatient (CLI) | payer OTHER ==
--- NOTE | 2022-11-16 09:48 | XR ---
EXAMINATION TYPE: XR KUB DATE OF EXAM: 11/16/2022 9:17 AM INDICATION: Patient age:Male; 57 years old; Reason for study: R18.8 OTHER ASCITES; [facility]. COMPARISON: CT 10/01/2022 TECHNIQUE: One radiographic view of the abdomen was obtained. FINDINGS: The bowel gas pattern is nonspecific without dilated loops of small or large bowel. There i s no evidence for organomegaly or pneumoperitoneum. The osseous structures are intact. Calcificatio ns project over the right kidney. Fecal material and gas are demonstrated throughout the colon and re ctum. Fixation hardware in the lower spine hardware appears intact. Prostate consultations present. IMPRESSION: 1. Multiple calcifications project over the right kidney measuring up to 10 mm. 2. Prosthetic calcifications. 3. Nonspecific bowel gas pattern.
== END | disposition home or self-care (01) ==
LOC: RADXRMAIN 08:53
PROVIDERS: ATTEND Urology
DX: N20.0 Calculus of kidney (principal); N28.89 Other specified disorders of kidney and ureter
CPT/HCPCS: 74018

== ENCOUNTER → 2023-01-07 | Outpatient (CLI) | payer OTHER ==
--- NOTE | 2023-01-07 10:56 | XR ---
EXAMINATION TYPE: XR KUB DATE OF EXAM: 01/07/2023 10:01 AM INDICATION: Patient age:Male; 57 years old; Reason for study: N20.0 CALCULUS OF KIDNEY; COMPARISON: 11/16/2022. TECHNIQUE: One radiographic view of the abdomen was obtained. FINDINGS: The bowel gas pattern is nonspecific without dilated loops of small or large bowel. There i s no evidence for organomegaly or pneumoperitoneum. Multiple calcification densities project over th e right inferior kidney. Measuring up to 8 mm. Postsurgical changes project over the spine. Fecal mat erial and gas are demonstrated throughout the colon and rectum. IMPRESSION: 1. Multiple right-sided renal calculi. 2. Postsurgical changes spine with hardware appearing intact.
== END | disposition home or self-care (01) ==
LOC: RADXRMAIN 09:46
PROVIDERS: ATTEND Urology
DX: N20.0 Calculus of kidney (principal); Z96.698 Presence of other orthopedic joint implants
CPT/HCPCS: 74018

== ENCOUNTER → 2023-01-11 | Outpatient (CLI) | payer OTHER ==
[2023-01-11 16:20] LABS: ALT 29 U/L (10-49); AST 32 U/L (14-35); Albumin 4.9 d/dL (3.8-4.9); Albumin/Globulin Ratio 2.23 Ratio (1.60-3.17); Alkaline Phosphatase 90 U/L (41-126); Calcium 10.5 mg/dL (8.7-10.3); Carbon Dioxide 22.5 mmol/L (21.6-31.8); Chloride 106 mmol/L (96-109); Globulin 2.2 d/dL (1.6-3.3); Glucose 122 mg/dL (70-110); Potassium 4.9 mmol/L (3.5-5.5); Sodium 141 mmol/L (135-145); Total Bilirubin 0.3 mg/dL (0.3-1.2); Total Protein 7.1 d/dL (6.2-8.2)
== END | disposition home or self-care (01) ==
LOC: LABWHC1 10:45
PROVIDERS: ATTEND Urology
DX: N20.0 Calculus of kidney (principal)
CPT/HCPCS: 36415; 80053; 83970

== ENCOUNTER → 2023-01-31 | Outpatient (CLI) | payer OTHER ==
[2023-01-31 16:30] LABS: Basophils # (A) 0.07 X 10*3/uL (0.00-0.10); Eosinophils # (A) 0.21 X 10*3/uL (0.04-0.35); Eosinophils % (A) 3.1 %; HCT 46.3 % (39.6-50.0); HGB 14.8 d/dL (13.0-17.0); Lymphocytes # (A) 1.18 X 10*3/uL (0.90-5.00); Lymphocytes % (A) 17.2 %; MCH 29.3 pg (27.0-32.0); MCV 91.7 FL (80.0-97.0); Mean Platelet Volume 12.2 FL (9.5-12.2); Monocytes # (A) 0.84 X 10*3/uL (0.20-1.00); Monocytes % (A) 12.2 %; NRBC Per 100 WBC 0 X 10*3/uL (0.00-0.01); Neutrophils # (A) 4.55 X 10*3/uL (1.80-7.70); Neutrophils % (A) 66.2 %; Platelet Count 148 X 10*3/uL (140-440); RBC 5.05 X 10*6/uL (4.40-5.60); RDW 12.8 % (11.5-14.5); WBC 6.87 X 10*3/uL (4.50-10.00)
[2023-01-31 17:34] LABS: Appearance,Urine Clear (Clear); Bilirubin,Urine Negative (Negative); Blood,Urine Trace (Negative); Color,Urine Yellow (Yellow); Ketones,Urine Negative (Negative); Nitrite,Urine Negative (Negative); PH, Urine 5.5; Specific Gravity,Urine 1.028 (1.001-1.030)
[2023-01-31 17:46] LABS: Blood Urea Nitrogen 18.7 mg/dL (9.0-27.0); Carbon Dioxide 21.3 mmol/L (21.6-31.8); Chloride 106 mmol/L (96-109); Glucose 110 mg/dL (70-110); Potassium 4.7 mmol/L (3.5-5.5); Sodium 138 mmol/L (135-145)
[2023-01-31 18:48] LABS: Bacteria,Urine None Seen (None Seen); Calcium Oxalate Crystals,Urine Present (None Seen)
== END | disposition home or self-care (01) ==
LOC: LABPAT 10:09
PROVIDERS: ATTEND Urology
DX: Z01.812 Encounter for preprocedural laboratory examination (principal); N20.0 Calculus of kidney; R31.29 Other microscopic hematuria
CPT/HCPCS: 36415; 80048; 81001; 85025; 87086

== ENCOUNTER → 2023-03-19 | Outpatient (CLI) | payer OTHER ==
--- NOTE | 2023-03-19 08:57 | XR ---
EXAMINATION TYPE: XR KUB DATE OF EXAM: 03/19/2023 COMPARISON: Multiple KUB with most recent 02/06/2023 HISTORY: Calculus of kidney TECHNIQUE: Single supine KUB image of the abdomen is obtained FINDINGS: The bowel gas pattern is nonspecific without dilated loops of small or large bowel. Multiple calculi project over the right kidney. Measuring up to 5 mm. No definitive ureteral or left renal calculi. Po stsurgical changes project over the spine. Fecal material and gas are demonstrated throughout the col on and rectum. Coarse prostate calcifications redemonstrated. IMPRESSION: Multiple right-sided renal calculi demonstrated.
== END | disposition home or self-care (01) ==
LOC: RADXRMAIN 08:26
PROVIDERS: ATTEND Urology
DX: N20.0 Calculus of kidney (principal)
CPT/HCPCS: 74018

== ENCOUNTER → 2023-11-28 | Outpatient (CLI) | payer OTHER ==
--- NOTE | 2023-11-28 13:42 | CTL ---
EXAMINATION TYPE: CT Low Dose Lung DATE OF EXAM ORDERED: 11/28/2023 HISTORY: . Low Dose CT Lung Screening IV CONTRAST USED: None. SCREENING VISIT: First visit COMPARISON: None. TECHNIQUE: Low dose computed tomography scan was performed through the chest at 1 millimeter thick se ctions and reconstructed images in the coronal plane at [address] DIAGNOSTIC QUALITY: Satisfactory FINDINGS: LUNG NODULES: Not presentLeft lung: no nodules identified.Right lung: no nodules identified. LUNGS: COPD: Severity: Very mild Fibrosis: Severity:None Lymph nodes: None Other findings: None RIGHT PLEURAL SPACE: Effusion: None Calcification: None Thickening: None Pneumothorax: None LEFT PLEURAL SPACE: Effusion: None Calcification: None Thickening: None Pneumothorax: None HEART: Heart Size: Mildly enlarged Coronary calcification: Mild Pericardial effusion: None OTHER FINDINGS: Upper abdomen: No significant abnormality Bony thorax: Degenerative changes Supraclavicular region: No significant abnormality Other: Ascending thoracic aortic aneurysm measuring 4.2 cm. IMPRESSION: 1. No distinct pulmonary nodularity identified 2. Ascending thoracic aortic aneurysm measuring 4.[address] CHEST RECOMMENDATION: Follow-up screening in one year CT LUNG RAD: LUNG RAD CATEGORY 1 negative
== END | disposition home or self-care (01) ==
LOC: RADCTMAIN 12:54
PROVIDERS: ATTEND Family Medicine
DX: Z12.2 Encounter for screening for malignant neoplasm of respiratory organs (principal); I71.21 Aneurysm of the ascending aorta, without rupture; F17.210 Nicotine dependence, cigarettes, uncomplicated
CPT/HCPCS: 71271

== ENCOUNTER → 2024-08-17 | Outpatient (CLI) | payer OTHER ==
--- NOTE | 2024-08-17 10:10 | XR ---
EXAMINATION TYPE: XR wrist complete RT DATE OF EXAM: 08/17/2024 CLINICAL INDICATION: Male, 59 years old with history of M25.531 PAIN IN RIGHT WRIST, TECHNIQUE: 3 Views of the wrist. 4 view scaphoid view is performed. COMPARISON: Prior right wrist x-ray August 09, 2015. Prior CT 2019. 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 Subchondral cystic change througho ut the carpal bones are redemonstrated. Calcification of the triangle fibrocartilage complex is prese nt. Moderate narrowing to the carpal bones is seen. Overlying soft tissue is unremarkable. IMPRESSION: As above. [facility], , 08/17/2024 10:07 AM
== END | disposition home or self-care (01) ==
LOC: RADXRMAIN 09:45
DX: S62.002K Unspecified fracture of navicular [scaphoid] bone of left wrist, subsequent encounter for fracture with nonunion (principal); M89.8X8 Other specified disorders of bone, other site

== ENCOUNTER → 2024-09-30 | Outpatient (CLI) | payer OTHER ==
--- NOTE | 2024-09-30 13:38 | CT ---
EXAMINATION TYPE: CT angio chest DATE OF EXAM: 09/30/2024 COMPARISON: Prior low-dose lung screening CT November 28, 2023 CLINICAL INDICATION: Male, 59 years old with history of I71.21 thoracic aneurysm, thoracic aneurysm, TECHNIQUE: CTA scan of the thorax is performed without and with IV Contrast, patient injected with 100 ml mL of Isovue 370, aneurysm protocol. 3D reconstructed images are created on an independent workstation and reviewed. CT DLP: 713.4 mGycm. Automated Exposure Control for Dose Reduction was Utilized. FINDINGS: LUNGS: Mild underlying emphysematous change is present. Lungs remain clear without suspicious nodule s. There is no pleural effusion or pneumothorax seen. The tracheobronchial tree is patent. HEART: Size within normal limits. Mild coronary artery calcifications present. MEDIASTINUM: Noncontrast images show no suspicious hyperdense material to suggest intramural hematoma . Ascending aorta measures up to 3.8 cm in the coronal image 15. Ascending aorta measures up to 4.2 c m at level of main pulmonary artery axial image 72. There is normal 3 vessel origins from the aortic arch without aneurysm extension into the arch or descending aorta. OTHER: Slight scoliotic curvature with multilevel spurring in the spine is present. IMPRESSION: Stable ascending aortic aneurysm up to 4.2 cm. Consider annual imaging follow-up. [facility], , 09/30/2024 1:35 PM
== END | disposition home or self-care (01) ==
LOC: RADCTMAIN 10:37
PROVIDERS: ATTEND Family Medicine
DX: I71.21 Aneurysm of the ascending aorta, without rupture (principal)
CPT/HCPCS: 71275; Q9967

== ENCOUNTER → 2024-11-26 | Outpatient (CLI) | payer OTHER ==
--- NOTE | 2024-11-26 11:42 | CA ---
Transthoracic Echo Report Name: Bryce Ascencio Age: 59 Gender: M : 1965 Exam Date: 11/26/2024 08:29 Exam Location: [place] [facility] Ht (in): 70 Wt (lb): 199 Ordering Physician: Edouard Tidwell MD Attending/Referring Phys: Edouard Tidwell MD [employer] Violette Mcqueen, [id number] Procedure CPT: Indications: I71.20 THORACIC AORTIC ANEURYSM, WITHOUT, I36.9 Cardiac Hx: HTN, Smoker Technical Quality: Fair Contrast 1: Total Dose (mL): Contrast 2: Total Dose (mL): MEASUREMENTS (Male / Female) Normal Values 2D ECHO LV Diastolic Diameter PLAX 4.3 cm 4.2 - 5.9 / 3.9 - 5.3 cm LV Systolic Diameter PLAX 3.1 cm IVS Diastolic Thickness 1.2 cm 0.6 - 1.0 / 0.6 - 0.9 cm LVPW Diastolic Thickness 1.1 cm 0.6 - 1.0 / 0.6 - 0.9 cm LV Relative Wall Thickness 0.5 RV Internal Dim ED PLAX 2.6 cm Aortic Root Diameter 4.0 cm LA Systolic Diameter LX 3.8 cm 3.0 - 4.0 / 2.7 - 3.8 cm LV Diastolic Volume MOD BP 88.1 cm??? 67 - 155 / 56 - 104 cm??? LV Systolic Volume MOD BP 31.9 cm??? 22 - 58 / 19 - 49 cm??? LV Ejection Fraction MOD BP 63.8 % >= 55 % LV Cardiac Index MOD BP 1845.8 cm???/min???m??? LV Diastolic Volume MOD 4C 115.1 cm??? LV Systolic Volume MOD 4C 33.6 cm??? LV Ejection Fraction MOD 4C 70.8 % LV Cardiac Index MOD 4C 2679.7 cm???/min???m??? LV Diastolic Length 4C 8.2 cm LV Systolic Length 4C 6.2 cm LV Diastolic Volume MOD 2C 59.7 cm??? LV Systolic Volume MOD 2C 28.8 cm??? LV Ejection Fraction MOD 2C 51.7 % LV Cardiac Index MOD 2C 1013.9 cm???/min???m??? LV Diastolic Length 2C 7.1 cm LV Systolic Length 2C 6.6 cm LA Volume 53.5 cm??? 18 - 58 / 22 - 52 cm??? LA Volume Index 25.1 cm???/m??? 16 - 28 cm???/m??? M-MODE Aortic Root Diameter MM 3.8 cm LA Systolic Diameter MM 3.3 cm LA Ao Ratio MM 0.9 AV Cusp Separation MM 2.2 cm DOPPLER MV Area PHT 2.7 cm??? Mitral E Point Velocity 66.6 cm/s Mitral A Point Velocity 68.2 cm/s Mitral E to A Ratio 1.0 MV Deceleration Time 281.9 ms TR Peak Velocity 206.6 cm/s TR Peak Gradient 17.1 mmHg FINDINGS Left Ventricle Left ventricular ejection fraction is estimated at 55-60 %. Mildly increased septal wall thickness. Normal left ventricular systolic function with no obvious regional wall motion abnormalities. Left ventricular cavity size normal. Right Ventricle Normal right ventricular size and function. Right ventricular systolic pressure within normal limits. Right Atrium Normal right atrial size. Left Atrium Normal left atrial size. Mitral Valve Structurally normal mitral valve. Trace mitral regurgitation. No mitral stenosis. Aortic Valve Trileaflet aortic valve. No aortic stenosis. Trace aortic regurgitation. Tricuspid Valve Structurally normal tricuspid valve. Trace tricuspid regurgitation. No tricuspid stenosis. Pulmonic Valve Structurally normal pulmonic valve. Trace pulmonic regurgitation. No pulmonic stenosis. Pericardium No pericardial or pleural effusion. Aorta Aorta at the level of the sinuses of valsalva (root) normal 3.8cm. Mildly dilated proximal ascending aorta (tube) 4.1cm. CONCLUSIONS 5 normal LV systolic function No significant valvular abnormalities noted Dilated aorta as described above Previewed by: Dr. Kraig Joyce MD (Electronically Signed) Final Date: 26 November 2024 11:41
== END | disposition home or self-care (01) ==
LOC: RADECHMAIN 08:07
PROVIDERS: ATTEND Surgery
DX: I71.20 Thoracic aortic aneurysm, without rupture, unspecified (principal); I10 Essential (primary) hypertension; I08.3 Combined rheumatic disorders of mitral, aortic and tricuspid valves; Z87.891 Personal history of nicotine dependence
CPT/HCPCS: 93306